=== PATIENT | female | born 1950 | race Caucasian/White ===

== ENCOUNTER 2018-09-03 20:33 | Inpatient (IN) | payer OTHER ==
[~2018-09-03] VITALS: Ht 167.6 cm; Wt 57.6 kg
[2018-09-03] MEDS: NACL 0.9% 1,000 ML IV SCH (08:05)
[2018-09-03 20:35] VITALS: BP 150/69
--- NOTE | 2018-09-03 20:37 | NUR ---
PT BREEZY BLS. TAKEN TO BED 2
--- NOTE | 2018-09-03 20:39 | NUR ---
Dr. Martins evaluating patient at bedside.
[2018-09-03] MEDS ORDERED: INSULIN REGULAR, HUMAN 100 UNIT/ML VIAL SUBQ ONE (20:40)
[2018-09-03] MEDS ORDERED: NACL 0.9% 1,000 ML IV ONE ×2 (20:40→23:30)
--- NOTE | 2018-09-03 20:45 | NUR ---
[facility]. PT IS AWAKE AND ALERT, FOLLOWS COMMANDS. PT HAS HX OF DM. SKIN IS WARM DRY AND INTACT.
[2018-09-03] MEDS ORDERED: INSU-1163 SQ (21:00)
[2018-09-03] MEDS ORDERED: FLEPED RC (21:00)
[2018-09-03] MEDS ORDERED: HYDR100T79 PO (21:00)
[2018-09-03] MEDS ORDERED: CLON0.1T42 PO (21:00)
[2018-09-03] MEDS ORDERED: BISA5ECT43 PO (21:00)
[2018-09-03] MEDS ORDERED: AMLO5TAB PO (21:00)
[2018-09-03] MEDS ORDERED: INSU100S22 SUBQ (21:00)
[2018-09-03] MEDS ORDERED: VITA1TAB44 PO (21:00)
[2018-09-03] MEDS ORDERED: LEVO0.124 PO (21:00)
[2018-09-03] MEDS ORDERED: ACET-9882 PO (21:00)
[2018-09-03] MEDS ORDERED: FAMO-90 PO (21:00)
[2018-09-03 21:11] LABS: BASOPHILS # (AUTO) 0.1 K/uL (0.00-0.22); BASOPHILS % (AUTO) 0.9 % (0.0-2.0); EOSINOPHILS # (AUTO) 0.2 K/uL (0-0.4); EOSINOPHILS % (AUTO) 2.5 % (0.0-4.0); HEMATOCRIT 31.8 % (36-48); HEMOGLOBIN 10.4 g/dL (12.0-16.0); LYMPHOCYTES # (AUTO) 1.8 K/uL (2.5-16.5); LYMPHOCYTES % (AUTO) 21.6 % (20.5-51.1); MEAN CORPUSCULAR HEMOGLOBIN 31 pg (27-31); MEAN CORPUSCULAR HGB CONC 33 g/dL (33-37); MEAN CORPUSCULAR VOLUME 94.9 fL (80-94); MONOCYTES # (AUTO) 0.6 K/uL (0.8-1.0); MONOCYTES % (AUTO) 7.4 % (1.7-9.3); NEUTROPHILS # (AUTO) 5.6 K/uL (1.8-7.7); NEUTROPHILS % (AUTO) 67.6 % (42.2-75.2); PLATELET COUNT (AUTO) 331 K/uL (140-450); RED BLOOD CELL COUNT(AUTO) 3.35 MIL/uL (4.20-5.40); RED CELL DISTRIBUTION WIDTH 16.4 % (11.6-13.7); WHITE BLOOD COUNT (AUTO) 8.3 K/uL (4.8-10.8)
--- NOTE | 2018-09-03 21:15 | NUR ---
# 14 FR Meyers catheter utilizing sterile technique. Immediate return of 30 ml YELLOW CLOUDY urine noted. Urine sample collected and sent to lab. Pt tolerated procedure WELL. MEYERS REMOVED , PT POSITIONED TO COMFORT.
[2018-09-03 21:47] LABS: ANION GAP 16.3 (8-16); CARBON DIOXIDE 21.8 mmol/L (21-32); POTASSIUM 4.1 mmol/L (3.5-5.1)
[2018-09-03 21:49] LABS: CREATININE 4.1 mg/dL (0.6-1.3)
[2018-09-03 21:50] LABS: ALBUMIN 2.8 g/dL (3.4-5.0); TOTAL BILIRUBIN 0.3 mg/dL (0.0-1.0)
[2018-09-03 22:35] LABS: APPEARANCE,URINE CLOUDY (CLEAR); COLOR,URINE STRAW (YELLOW); UGLUCOSE >=1000 (NEGATIVE)
[2018-09-03 22:36] LABS: BILIRUBIN,URINE NEGATIVE (NEGATIVE); BLOOD, URINE 1+ (NEGATIVE); LEUKOCYTE ESTERASE ,URINE 2+ (NEGATIVE); NITRITE, URINE NEGATIVE (NEGATIVE); RBC,URINE 0-5 /HPF (0-5); WBC,URINE TOO MANY TO COUNT /HPF (0-5)
[2018-09-03] MEDS ORDERED: cefTRIAXone 1,000 MG VIAL ONE (23:23)
--- NOTE | 2018-09-03 23:30 | NUR ---
PT IN BED RESTING, VSS, NO NEW NEEDS AT THIS TIME. IVF INFUSING WELL.
[2018-09-03] MEDS ORDERED: LORazepam 2 MG/ML VIAL IM/IVP PRN (23:45)
[2018-09-03] MEDS ORDERED: HYDROcodone/APAP 5/325 MG 1 TAB TAB PO PRN (23:45)
[2018-09-03] MEDS ORDERED: ACETAMINOPHEN 325 MG TAB PO PRN (23:45)
[2018-09-03] MEDS ORDERED: ONDANSETRON 4 MG/2 ML VIAL IM/IVP PRN (23:45)
[2018-09-03] MEDS ORDERED: MORPHINE SULFATE 2 MG/ML SYR IVP PRN (23:45)
[2018-09-03] MEDS ORDERED: DOCUSATE SODIUM 100 MG GELCAP PO PRN (23:45)
[2018-09-03] MEDS ORDERED: ZOLPIDEM 5 MG TAB PO PRN (23:45)
[2018-09-03] MEDS ORDERED: DEXTROSE 50% 50 ML SYR IVP PRN (23:50)
[2018-09-04 00:05] LABS: PROTHROMBIN TIME 9.9 secs (10.8-13.4)
[2018-09-04] MEDS ORDERED: MEDICATION REC. PHARMACY CONS. 1 EA MISC MC PRN (00:15)
[2018-09-04] MEDS ORDERED: MELATONIN 3 MG TAB PO PRN (00:15)
[2018-09-04 00:20] LABS: MAGNESIUM 2.4 mg/dL (1.8-2.4); PHOSPHORUS 4.5 mg/dL (2.5-4.9); THYROID STIMULATING HORMONE 2.91 uIU/mL (0.34-3.74)
[2018-09-04] MEDS ORDERED: cloNIDine 0.1 MG TAB PO PRN (00:25)
[2018-09-04] MEDS ORDERED: SODIUM PHOSPHATE PEDIATRIC 67.5 ML ENEM RC PRN (00:25)
[2018-09-04] MEDS ORDERED: MAGNESIUM HYDROXIDE 2400 MG/30 ML UDC PO PRN (00:25)
--- NOTE | 2018-09-04 00:40 | NUR ---
RECEIVED PATIENT FROM ER VIA GURNEY, 2ND OF 2 L BOLUSES RUNNING TO THE RIGHT AC 22 G. PATIENT IS AAOX2. SHE SHOWS SIGNS OF CONFUSION WHEN MAKING CONVERSATION, BUT CAN ANSWER IDENTIFIERS CLEARLY. VITALS ARE STABLE, PATIENT IS AFEBRILE. HEALED WOUND ON SACRUM AND BL BUTTOCKS FOLD, CURRENT SACRAL AND RIGHT BUTTOCKS OPEN WOUND PRESENT.
[2018-09-04] MEDS ORDERED: METO25TA PO (00:45)
[2018-09-04] MEDS ORDERED: MAGN400S60 PO (00:45)
[2018-09-04] MEDS ORDERED: BISA5ECT43 RC (00:45)
[2018-09-04] MEDS ORDERED: MULT-1469 PO (00:45)
[2018-09-04] MEDS ORDERED: FAMO-90 PO (00:45)
[2018-09-04] MEDS ORDERED: PAX20 PO (00:45)
--- NOTE | 2018-09-04 00:52 | NUR ---
Patient will be admitted to care of DR LIANG. Admited to MED-SURG. Will go to room 128-B. Belongings list completed. Report to SHRUTHI.
[2018-09-04] MEDS ORDERED: HYDR-1102 PO (00:54)
--- NOTE | 2018-09-04 02:00 | NUR ---
MEYERS CATHETER ORDERED DUE TO CONSTANT TRICKLE OF URINE AND OPEN ACTIVE WOUNDS. INSERTED MEYERS WITH ONE ATTEMPT. PATIENT TOLERATED PROCEDURE WELL. SMALL VULVAR SKIN TEAR NOTED PRIOR TO INSERTION. WILL CONTINUE TO MONITOR. URINE IS CLOUDY AND YELLOW.
[2018-09-04 04:00] VITALS: BP 145/78
--- NOTE | 2018-09-04 05:45 | NUR ---
RADIOLOGY NEEDED ASSISTANCE TO TRANSPORT PATIENT VIA BED TO HEAD CT AND CXR. ASSISTED PRESTO LOG OPERATOR WITH TRANSFER TO AND FROM RADIOLOGY. RETURNED PATIENT TO ROOM AND PLACED ON WOUND BED. REPOSITIONED FOR COMFORT.
[2018-09-04 06:55] LABS: BASOPHILS # (AUTO) 0.1 K/uL (0.00-0.22); BASOPHILS % (AUTO) 1.1 % (0.0-2.0); EOSINOPHILS # (AUTO) 0.3 K/uL (0-0.4); EOSINOPHILS % (AUTO) 3.4 % (0.0-4.0); HEMATOCRIT 30.5 % (36-48); HEMOGLOBIN 10.1 g/dL (12.0-16.0); LYMPHOCYTES # (AUTO) 2.4 K/uL (2.5-16.5); LYMPHOCYTES % (AUTO) 27.6 % (20.5-51.1); MEAN CORPUSCULAR HEMOGLOBIN 32 pg (27-31); MEAN CORPUSCULAR HGB CONC 33 g/dL (33-37); MEAN CORPUSCULAR VOLUME 96.8 fL (80-94); MONOCYTES # (AUTO) 0.7 K/uL (0.8-1.0); MONOCYTES % (AUTO) 7.8 % (1.7-9.3); NEUTROPHILS # (AUTO) 5.2 K/uL (1.8-7.7); NEUTROPHILS % (AUTO) 60.1 % (42.2-75.2); PLATELET COUNT (AUTO) 314 K/uL (140-450); RED BLOOD CELL COUNT(AUTO) 3.15 MIL/uL (4.20-5.40); RED CELL DISTRIBUTION WIDTH 16.3 % (11.6-13.7); WHITE BLOOD COUNT (AUTO) 8.7 K/uL (4.8-10.8)
--- NOTE | 2018-09-04 07:45 | NUR ---
GAVE BEDSIDE REPORT TO DAY SHIFT RN. PATIENT STABLE. NO SIGNS OF DISTRESS ON RA. ENDORSING FOR CONTINUITY OF CARE.
--- NOTE | 2018-09-04 07:46 | NUR ---
RECEIVED REPORT FROM THE MANAGER SUPPLIER NURSE. PT IS SLEEPING. I WILL COME BACK TO REASSESS PT.
[2018-09-04 08:00] VITALS: BP 137/68
--- NOTE | 2018-09-04 08:00 | NUR ---
WOKE UP PT FOR V/S. V/S WITHIN NORMAL RANGE. PT IS AWAKE AND ANSWERS SIMPLE QUESTIONS. PT IS SLUGGISH AND SLEEPY. PT HAS AN IV ACCESS ON R AC. NO FLUIDS RUNNING AT THIS TIME. WILL HANG A FRESH BAG AND RESTART IVF. PT ALSO HAS A MEYERS CATH. BAG IS FULL OF YELLOW URINE. PT ALSO HAS A HEART SHAPE MEPILEX ON HER SACRAL. SOME SKIN TEAR IN HER LUIS AREA AND BUTTOCKS. PT IS ON A WOUND CARE BED. NEED PUMP. DR SEGURA STOPPED BY ON HIS ROUNDS. TODAY TO HAVE US OF ABD, P/T EVAL, AND NEPHRO CONSULT. WILL CONTINUE TO MONITOR PT.
[2018-09-04] MEDS: LEVOTHYROXINE 0.1 MG, LEVOTHYROXINE 0.025 MG PO SCH ×2 (08:05)
[2018-09-04] MEDS: hydrALAZINE 10 MG TAB PO SCH ×3 (08:05→20:45)
[2018-09-04] MEDS: BLOOD GLUCOSE MONITORING 1 DEV DEV FS SCH ×4 (08:05→20:31)
[2018-09-04] MEDS: INSULIN LISPRO SLIDING SCALE 100 UNITS/ML VIAL SUBQ PRN ×4 (08:08→20:36)
[2018-09-04] MEDS ORDERED: SODIUM PHOSPHATE 118 ML ENEM RC PRN (08:10)
[2018-09-04] MEDS: LACTOBACILLUS RHAMNOSUS GG 1 EACH CAP PO SCH (08:53)
[2018-09-04] MEDS: VIT-B COMP/VIT-C/FOLIC ACID 1 TAB PO SCH (08:53)
[2018-09-04] MEDS: METOPROLOL 25 MG TAB PO SCH ×2 (08:53→20:58)
[2018-09-04] MEDS: PARoxetine 20 MG TAB PO SCH (08:54)
[2018-09-04] MEDS: amLODIPine 5 MG TAB PO SCH (08:54)
[2018-09-04] MEDS: FAMOTIDINE 20 MG TAB PO SCH ×2 (08:54→20:45)
[2018-09-04] MEDS ORDERED: NON-FORMULARY ITEM (Levothyroxine Sodium* (Synthroid*) 0.125 MG) PO SCH (09:00)
[2018-09-04] MEDS ORDERED: BISACODYL 10 MG SUPP RC PRN (09:00)
[2018-09-04] MEDS ORDERED: VIT-B COMP/VIT-C/FOLIC ACID 1 TAB PO SCH (09:00)
--- NOTE | 2018-09-04 09:00 | NUR ---
ADMINISTERED MORNING MEDS. PT TOLERATED WELL. HELD BREAKFAST D/T ABD US. PER US TECH REQUEST.
[2018-09-04 09:03] LABS: ANION GAP 16.2 (8-16); CARBON DIOXIDE 20.8 mmol/L (21-32); CREATININE 3.6 mg/dL (0.6-1.3)
[2018-09-04] MEDS: NACL 0.9% 1,000 ML IV SCH (09:09)
--- NOTE | 2018-09-04 09:45 | NUR ---
ABD US DONE.
[2018-09-04 10:19] LABS: MAGNESIUM 1.9 mg/dL (1.8-2.4); PHOSPHORUS 4.3 mg/dL (2.5-4.9)
--- NOTE | 2018-09-04 11:05 | NUR ---
DR. MACHADO, NEPHRO CAME TO CONSULT ON PT.
[2018-09-04 11:43] LABS: CHOL/HDL RATIO 4.6 (1-4.5)
--- NOTE | 2018-09-04 14:16 | NUR ---
09/04/18 RD INITIAL ASSESSMENT COMPLETED PLEASE REFER TO NUTRITION ASSESSMENT UNDER CARE ACTIVITY FOR ESTIMATED NUTRITIONAL NEEDS. 1. CONTINUE [facility] [place] DIET TOLERATE 2. RECOMMEND VITAMIN C 1000 MG BID 3. DIABETES EDUCATION WAS PROVIDED 4. RD TO FOLLOW-UP 2-3 DAYS, HIGH RISK TIANNA LAMA RD
--- NOTE | 2018-09-04 14:51 | NUR ---
TECH HERE FOR ECHO.
--- NOTE | 2018-09-04 15:05 | NUR ---
S.T. BEDSIDE SWALLOW EVAL COMPLETED Pt presents w/ mild oropharyngeal dysphagia c/b prolonged mastication of solids and delayed pharyngeal swallow response. No overt s/s aspiration observed, however, across all textures. Recommend: 1) Downgrade diet to mechanical soft chopped. Thin liquids okay. 2) P.O. meds as tolerated. No further swallow tx indicated at this time. DC to nsg care. Endorsed to nsg. Time 2935-1456
[2018-09-04 16:00] VITALS: BP 114/47
--- NOTE | 2018-09-04 19:25 | NUR ---
ENDORSED PT TO THE EXERCISE TEACHER NURSE. PT IS IN STABLE CONDITION.
--- NOTE | 2018-09-04 19:26 | NUR ---
RECEIVED PT FROM JAMEE REYNOLDS AT BEDSIDE. PT AWAKE AND ALERT X4. ABLE TO MAKE NEEDS KNOWN. FOLLOWS COMMANDS. R AC 22G RUNNING NS 70. CLEAN DRY INTACT. SACRAL WOUND. SKIN TEAR IN PERINEAL. REPOSITION Q2H. BED IN LOW POSITION. CALL LIGHT WITHIN REACH.
[2018-09-04 20:00] VITALS: BP 129/51
[2018-09-04] MEDS: INSULIN LANTUS 100 UNITS/ML 10 ML VIAL SUBQ SCH (20:35)
[2018-09-04] MEDS: ASCORBIC ACID 500 MG TAB PO SCH (20:45)
--- NOTE | 2018-09-04 21:00 | NUR ---
BLOOD SUGAR TEST 227. COVERAGE 4 UNITS. PT TOLERATED WELL. NO COMPLAINTS AT THIS TIME. BED IN LOW POSITION. CALL LIGHT WITHIN REACH. WILL CONTINUE TO MONITOR.
--- NOTE | 2018-09-04 23:00 | NUR ---
PT SLEEPING IN BED WITH NO SIGNS OF RESP DISTRESS OR DISCOMFORT. WILL CONTINUE TO MONITOR.
[2018-09-05] VITALS: BP 130/64
--- NOTE | 2018-09-05 01:00 | NUR ---
PT IS SLEEPING AFTER ASSESSING WOUND. PT REPOSITIONED. NO SIGNS OF DISTRESS. PT COOPERATIVE.
--- NOTE | 2018-09-05 04:00 | NUR ---
SPONGE BATH GIVEN. LINEN CHANGE. TOLERATED WELL. NO DISTRESS NOTED.
[2018-09-05] MEDS: NACL 0.9% 1,000 ML IV SCH ×2 (04:28→10:49)
[2018-09-05] MEDS: LEVOTHYROXINE 0.1 MG, LEVOTHYROXINE 0.025 MG PO SCH ×2 (05:33)
[2018-09-05] MEDS: hydrALAZINE 10 MG TAB PO SCH ×3 (05:33→20:18)
[2018-09-05] MEDS: BLOOD GLUCOSE MONITORING 1 DEV DEV FS SCH ×4 (05:38→21:22)
--- NOTE | 2018-09-05 05:46 | NUR ---
ADMINISTERED MEDS. EDUCATED ON SIDE EFFECTS. VERBALIZED UNDERSTANDING. TOLERATED WELL. WILL CONTINUE TO MONITOR.
[2018-09-05] MEDS: INSULIN LISPRO SLIDING SCALE 100 UNITS/ML VIAL SUBQ PRN ×3 (05:53→20:37)
--- NOTE | 2018-09-05 06:47 | NUR ---
WILL ENDORSE PT TO DAY SHIFT RN. PT IN STABLE CONDITION.
[2018-09-05 07:35] LABS: BASOPHILS # (AUTO) 0.1 K/uL (0.00-0.22); BASOPHILS % (AUTO) 1.2 % (0.0-2.0); EOSINOPHILS # (AUTO) 0.2 K/uL (0-0.4); EOSINOPHILS % (AUTO) 3.2 % (0.0-4.0); HEMATOCRIT 26.3 % (36-48); HEMOGLOBIN 8.9 g/dL (12.0-16.0); LYMPHOCYTES # (AUTO) 2.1 K/uL (2.5-16.5); LYMPHOCYTES % (AUTO) 27.3 % (20.5-51.1); MEAN CORPUSCULAR HEMOGLOBIN 32 pg (27-31); MEAN CORPUSCULAR HGB CONC 34 g/dL (33-37); MEAN CORPUSCULAR VOLUME 94.5 fL (80-94); MONOCYTES # (AUTO) 0.4 K/uL (0.8-1.0); MONOCYTES % (AUTO) 5.6 % (1.7-9.3); NEUTROPHILS # (AUTO) 4.8 K/uL (1.8-7.7); NEUTROPHILS % (AUTO) 62.7 % (42.2-75.2); PLATELET COUNT (AUTO) 285 K/uL (140-450); RED BLOOD CELL COUNT(AUTO) 2.79 MIL/uL (4.20-5.40); RED CELL DISTRIBUTION WIDTH 16.3 % (11.6-13.7); WHITE BLOOD COUNT (AUTO) 7.7 K/uL (4.8-10.8)
[2018-09-05 08:00] VITALS: BP 129/65
[2018-09-05 08:25] LABS: ANION GAP 14.9 (8-16); CARBON DIOXIDE 21.4 mmol/L (21-32); CREATININE 3.4 mg/dL (0.6-1.3); POTASSIUM 4.3 mmol/L (3.5-5.1)
[2018-09-05 08:28] LABS: MAGNESIUM 2.1 mg/dL (1.8-2.4); PHOSPHORUS 4.2 mg/dL (2.5-4.9)
[2018-09-05 08:29] LABS: HEPATITIS A ANTIBODY IGM Negative (Negative); HEPATITIS B CORE AB TOTAL Negative (Negative); HEPATITIS B SURFACE ANTIBODY Non Reactive (.); HEPATITIS B SURFACE ANTIGEN Negative (Negative)
[2018-09-05 08:29] LABS: T4 (THYROXINE) 8.5 ug/dL (4.5-12.0)
--- NOTE | 2018-09-05 08:29 | NUR ---
CRITICAL RESULTS BUN 69 CREAT 3.4 TRENDING DOWN FROM BUN 76 AND CREAT 3.6
--- NOTE | 2018-09-05 09:15 | NUR ---
ASSISTED JAIME WITH WOUND CARE AND REPOSITIONING. PT TOLERATED WELL. WILL CONTINUE TO MONITOR. BED IN LOW POSITION. CALL LIGHT AT BEDSIDE.
--- NOTE | 2018-09-05 10:26 | NUR ---
WOUND CARE EVALUATION NOTE: REASON FOR EVALUATION: LOW FRED SCALE SACRALCOCCYX AND LEFT BUTTOCK WOUNDS SKIN ASSESSMENT DONE WITH THIS 67 Y/O FEMALE PT ADMITTED FROM [facility] TO [facility] WITH INITIAL DX HYPERGLYCEMIA. PAST MEDICAL HX INCLUDES HTN, DM, HDL AND MULTIPLE PRESSURE ULCER WOUNDS. ALL ABOVE INFORMATION OBTAINED FROM ADMISSION H&P. PT IS AWAKE. SKIN IS WARM AND DRY, BLE HAIR GROWTH, NO EDEMA. DORSAL PEDAL PULSES PRESENT AND NORMAL. CAPILLARY REFILLED < 2 SEC. INCONTINENT OF BOWEL X1 DURING ASSESSMENT. F/C PATENT WITH SMALL AMOUNT YELLOW COLOR URINE OUT PUT OBSERVED. PLAN OF CARE DISCUSSED WITH PRIMARY RN. AND PT. NEED REINFORCE TEACHING ON PT. INTEGUMENTARY: -INCONTINENT ASSOCIATE DERMATITIS (IAD) TO: B/L GROINS, INNER BUTTOCKS EXTENDED TO LUIS ANAL, SKIN REDNESS -PRESSURE ULCER INJURY STAGE 3, SACROCOCCYX 2.5X1.5X0.3XCM,WOUND BED 100 % GRANULATING TISSUE, LUIS-WOUND SKIN MARCERATED, SURROUNDING REDNESS INDICATED FURTHER DAMAGE - PRESSURE ULCER INJURY STAGE 2, RIGHT BUTTOCK 1.5X1X0.2CM WOUND BED IS RED 100% GRANULATING TISSUE, MOIST NO ODOR, LUIS WOUND SKIN INTACT. SURROUNDING REDNESS INDICATED FOR FURTHER DAMAGE. RECOMMENDATIONS: -APPLY Z-GUARD B/L GROINS, INNER BUTTOCKS EXTENDED TO LUIS ANAL, SKIN REDNESS BID AND PRN IF SOILING - CLEANSE RIGHT BUTTOCK AND SACRALCOCCYX WITH WOUND CLEANSING SOLUTION AND APPLY THERAHONEY GEL COVER WITH OPTIFOAM DRESSING QD AND PRN IF SOILING -APPLY HEEL PROTECTORS TO BOTH HEELS AT ALL TIMES -OFFLOAD BILATERAL HEELS BY PLACING PILLOWS UNDER CALVES UNLESS OTHERWISE CONTRAINDICATED -PRESSURE REDISTRIBUTION SURFACE THERAPY -TURN AND REPOSITION Q2H, OFFLOAD SACRALCOCCYX AND BUTTOCKS BY TURNING RIGHT AND LEFT -CONTINUE TO FOLLOW RD RECOMMENDATIONS ALL ABOVE RECOMMENDATIONS DISCUSSED WITH PRIMARY RN. WILL FOLLOW UP PT Q7-10 DAYS. PLEASE CONTACT WOUND CARE NURSE FOR ANY QUESTION AND CHANGE OF WOUND CONDITION. Addendum: 09/05/18 at 1038 by Earl Santos (Grace) RN CLARIFICATION: SACRALCOCCYX WOUND NO TUNNELING, UNDERMINING TO 11 O'CLOCK 1CM DEPTH
[2018-09-05] MEDS: LACTOBACILLUS RHAMNOSUS GG 1 EACH CAP PO SCH (10:30)
[2018-09-05] MEDS: VIT-B COMP/VIT-C/FOLIC ACID 1 TAB PO SCH (10:30)
[2018-09-05] MEDS: FAMOTIDINE 20 MG TAB PO SCH ×2 (10:30→20:18)
[2018-09-05] MEDS: ASCORBIC ACID 500 MG TAB PO SCH ×2 (10:30→20:19)
[2018-09-05] MEDS: PARoxetine 20 MG TAB PO SCH (10:30)
[2018-09-05] MEDS: amLODIPine 5 MG TAB PO SCH (10:32)
[2018-09-05] MEDS: METOPROLOL 25 MG TAB PO SCH ×2 (10:32→20:19)
--- NOTE | 2018-09-05 11:10 | NUR ---
PT LYING IN BED SLEEPING AT THIS TIME. RESPIRATIONS EVEN AND UNLABORED. BED IN LOW POSITION. BED ALARM ON. CALL LIGHT AT BEDSIDE. WILL CONTINUE TO MONITOR.
[2018-09-05 12:11] LABS: FOLIC ACID > 20.00 ng/mL (>3.0)
--- NOTE | 2018-09-05 13:34 | NUR ---
ASSISTED IN REPOSITIONING AND LUIS CLEANING. PT IN STABLE CONDITION. PT TOLERATED WELL. BED IN LOW POSITION. BED ALARM ON. CALL LIGHT AT BEDSIDE. WILL CONTINUE TO MONITOR.
--- NOTE | 2018-09-05 15:33 | NUR ---
PT LYING IN BED WATCHING TV IN STABLE CONDITION. BED IN LOW POSITION. BED ALARM ON. CALL LIGHT AT BEDSIDE. WILL CONTINUE TO MONITOR.
[2018-09-05 16:00] VITALS: BP 134/77
--- NOTE | 2018-09-05 17:14 | NUR ---
REPOSITIONED AND CHANGED PT AFTER BOWEL MOVEMENT SMALL IN SIZE, SOFT, AND FORMED. PT TOLERATED WELL.
[2018-09-05] MEDS: THERAHONEY GEL 42.5 GM TP SCH (17:18)
[2018-09-05] MEDS: Z-GUARD PASTE TP SCH (17:19)
--- NOTE | 2018-09-05 18:43 | NUR ---
CRITICAL POSITIVE MRSA NARES. PT PLACED ON CONTACT PRECAUTIONS AT THIS TIME.
--- NOTE | 2018-09-05 19:24 | NUR ---
GAVE REPORT TO DEBT RECOVERY OFFICER NURSE KISSCATALINA FOR CONTINUITY OF CARE. PT IN STABLE CONDITION.
--- NOTE | 2018-09-05 19:25 | NUR ---
RECEIVED BEDSIDE REPORT FROM DAY SHIFT NURSE. PATIENT AWAKE, ALERT, AND COOPERATIVE. RESPIRATION EVEN UNLABORED ON ROOM AIR. NO DISTRESS NOTED. IV PATENT AND INTACT. SKIN IS WARM AND DRY. SACRAL WOUND AND SKIN TEAR IN PERINEAL AREA NOTED. MEYERS CATHETER DRAINING YELLOW URINE NOTED. ALL SAFETY MEASURES IN PLACE. BED IS AT LOW POSITION. CALL LIGHT WITHIN REACH AND VERBALIZES ITS USE. WILL CONTINUE TO MONITOR.
[2018-09-05] MEDS ORDERED: BACITRACIN OINT 500 UNITS/GM PKT TP SCH (20:00)
[2018-09-05] MEDS ORDERED: CHLORHEXADINE GLUC 2% CLOTH TP SCH (20:00)
--- NOTE | 2018-09-05 20:00 | NUR ---
INITIAL ASSESSMENT DONE. VITALS WERE TAKEN. PATIENT CONDITION STABLE. WILL CONTINUE TO MONITOR
[2018-09-05] MEDS: INSULIN LANTUS 100 UNITS/ML 10 ML VIAL SUBQ SCH (20:38)
--- NOTE | 2018-09-05 21:00 | NUR ---
ALL SCHEDULED MEDS WERE GIVEN AND TOLERATED THEM WELL. NO ASE NOTED. WILL CONTINUE TO MONITOR
--- NOTE | 2018-09-05 22:00 | NUR ---
PATIENT IN BED WATCHING TV RESPIRATION EVEN UNLABORED ON ROOM AIR. NO DISTRESS NOTED. WILL CONTINUE TO MONITOR.
--- NOTE | 2018-09-05 23:00 | NUR ---
PROVIDED PATIENT GOOD PERICARE AND CATHETER CARE BEFORE BEDTIME.
[2018-09-05] MEDS ORDERED: cefTRIAXone 1,000 MG VIAL ONE (23:26)
[2018-09-06] VITALS: BP 148/71
--- NOTE | 2018-09-06 | NUR ---
VITALS WERE TAKEN. PATIENT CONDITION STABLE. NO DISTRESS NOTED. WILL CONTINUE TO MONITOR
--- NOTE | 2018-09-06 02:00 | NUR ---
PATIENT SLEEPING RESPIRATION EVEN UNLABORED ON ROOM AIR. NO DISTRESS NOTED. WILL CONTINUE TO MONITOR
[2018-09-06] MEDS: Z-GUARD PASTE TP SCH ×2 (02:46→11:54)
[2018-09-06 03:50] LABS: FERRITIN 279 ng/mL (15-150); TRANSFERRIN 171 mg/dL (200-370)
--- NOTE | 2018-09-06 04:00 | NUR ---
GAVE PATIENT GOOD PERICARE AND CATHETER CARE. NO DISTRESS NOTED. WILL CONTINUE TO MONITOR
[2018-09-06] MEDS: hydrALAZINE 10 MG TAB PO SCH ×3 (05:34→20:23)
[2018-09-06] MEDS: LEVOTHYROXINE 0.1 MG, LEVOTHYROXINE 0.025 MG PO SCH ×2 (05:35)
--- NOTE | 2018-09-06 05:40 | NUR ---
CHECKED PATIENT BLOOD GLUCOSE. BLOOD GLUCOSE 25mg/dL. ADMINISTERED D50 PER ORDER AND GAVE PATIENT ORANGE JUICE WITH SUGAR. PATIENT IS RESPONSIVE, AWAKE, ALERT, AND COOPERATIVE. WILL CONTINUE TO MONITOR.
[2018-09-06] MEDS: BLOOD GLUCOSE MONITORING 1 DEV DEV FS SCH ×4 (06:13→20:37)
--- NOTE | 2018-09-06 06:13 | NUR ---
RECHECKED PATIENT BLOOD GLUCOSE. ITS NOW 127mg/dL.
[2018-09-06] MEDS: NACL 0.9% 1,000 ML IV SCH (06:46)
--- NOTE | 2018-09-06 07:20 | NUR ---
ENDORSED PATIENT TO DAY SHIFT NURSE. PATIENT CONDITION STABLE.
--- NOTE | 2018-09-06 07:21 | NUR ---
RECEIVED ENDORSEMENT FROM GENERAL MAINTENANCE TECHNICIAN NURSE. RESPIRATIONS ARE EVEN AND UNLABORED ON ROOM AIR. FLACC 0. PT RESPONSE TO NAME ONLY. RIGHT AC 22 G IV NOTED, INTACT, PATENT, AND INFUSING IVF. F/C DRAINING CLEAR YELLOW URINE. PLAN OF CARE WAS REVIEWED WITH PT. PT UNABLE TO VERBALIZE UNDERSTANDING. SAFETY MEASURES IN PLACE, CALL LIGHT WITHIN REACH. WILL CONTINUE TO MONITOR.
[2018-09-06 07:53] LABS: BASOPHILS # (AUTO) 0.1 K/uL (0.00-0.22); EOSINOPHILS # (AUTO) 0.2 K/uL (0-0.4); HEMATOCRIT 28.8 % (36-48); HEMOGLOBIN 9.7 g/dL (12.0-16.0); LYMPHOCYTES # (AUTO) 1.5 K/uL (2.5-16.5); MEAN CORPUSCULAR HEMOGLOBIN 32 pg (27-31); MEAN CORPUSCULAR HGB CONC 34 g/dL (33-37); MEAN CORPUSCULAR VOLUME 94.9 fL (80-94); MONOCYTES # (AUTO) 0.4 K/uL (0.8-1.0); NEUTROPHILS # (AUTO) 5.1 K/uL (1.8-7.7); PLATELET COUNT (AUTO) 293 K/uL (140-450); RED BLOOD CELL COUNT(AUTO) 3.03 MIL/uL (4.20-5.40); RED CELL DISTRIBUTION WIDTH 15.9 % (11.6-13.7); WHITE BLOOD COUNT (AUTO) 7.3 K/uL (4.8-10.8)
[2018-09-06 08:00] VITALS: BP 152/72
[2018-09-06 08:04] LABS: ANION GAP 16.6 (8-16); CARBON DIOXIDE 20.8 mmol/L (21-32); CREATININE 2.8 mg/dL (0.6-1.3); POTASSIUM 4.4 mmol/L (3.5-5.1)
[2018-09-06 08:13] LABS: MAGNESIUM 1.8 mg/dL (1.8-2.4); PHOSPHORUS 3.8 mg/dL (2.5-4.9)
--- NOTE | 2018-09-06 09:30 | NUR ---
ADMINISTERED SCHEDULED MEDICATIONS. PT ABLE TO SWALLOW THEM WITH APPLE SAUCE. FLACC 0. WILL CONTINUE TO MONITOR.
[2018-09-06] MEDS: METOPROLOL 25 MG TAB PO SCH ×2 (09:41→20:23)
[2018-09-06] MEDS: amLODIPine 5 MG TAB PO SCH (09:42)
[2018-09-06] MEDS: PARoxetine 20 MG TAB PO SCH (09:42)
[2018-09-06] MEDS: VIT-B COMP/VIT-C/FOLIC ACID 1 TAB PO SCH (09:42)
[2018-09-06] MEDS: FAMOTIDINE 20 MG TAB PO SCH ×2 (09:43→20:24)
[2018-09-06] MEDS: LACTOBACILLUS RHAMNOSUS GG 1 EACH CAP PO SCH (09:43)
[2018-09-06] MEDS: ASCORBIC ACID 500 MG TAB PO SCH ×2 (09:43→20:22)
[2018-09-06] MEDS: CHLORHEXADINE GLUC 2% CLOTH TP SCH (09:44)
[2018-09-06] MEDS: BACITRACIN OINT 500 UNITS/GM PKT TP SCH (09:44)
--- NOTE | 2018-09-06 10:24 | NUR ---
PATIENT WAS REPOSITIONED. PERINEAL CARE AND CATHETER CARE WERE GIVEN. WOUND DRESSING WAS CHANGED. PATIENT TOLERATED WELL. Addendum: 09/06/18 at 1033 by Cecilia Varghese RN HEEL RAISERS WERE PLACED ON BILATERAL HEELS PER ORDER
[2018-09-06 11:30] VITALS: BP 159/75
[2018-09-06] MEDS: THERAHONEY GEL 42.5 GM TP SCH (11:54)
--- NOTE | 2018-09-06 11:54 | NUR ---
PT REFUSED CT. STATED THAT SHE DID NOT WANT TO DO IT RIGHT NOW.
--- NOTE | 2018-09-06 12:30 | NUR ---
PATIENT REFUSED IVF, STATED SHE DOES NOT WANT IT RIGHT NOW. PATIENT WAS EXPLAINED WITH RISKS OF DEHYDRATION. PATIENT VERBALIZED UNDERSTANDING AND INSISTED ON REFUSING.
--- NOTE | 2018-09-06 14:00 | NUR ---
PATIENT WAS SLEEPING COMFORTABLY. RESPIRATION EVEN, UNLABOR ON ROOM AIR. NO DISTRESS NOTED AT THIS TIME
[2018-09-06 16:00] VITALS: BP 131/77
--- NOTE | 2018-09-06 16:30 | NUR ---
PATIENT SLEEPING, EASILY AROUSABLE. FLACC 0. WILL CONTINUE TO MONITOR.
[2018-09-06] MEDS: INSULIN LISPRO SLIDING SCALE 100 UNITS/ML VIAL SUBQ PRN ×2 (17:40→20:44)
--- NOTE | 2018-09-06 18:20 | NUR ---
PATIENT WAS AWAKE, EATING DINNER COMFORTABLY. RESPIRATION EVEN, UNLABOR ON ROOM AIR. PATIENT CONTINUED TO REFUSED CT SCAN OF ABDOMEN. MD WAS MADE AWARE. NO DISTRESS NOTED AT THIS TIME. IV PATENT AND INTACT.
--- NOTE | 2018-09-06 19:35 | NUR ---
ENDORSEMENT GIVEN TO BROADCAST SYSTEMS ENGINEER NURSE. PATIENT IS STABLE AT THIS TIME
--- NOTE | 2018-09-06 19:36 | NUR ---
REPORT RECEIVED FROM AM NURSE AT BEDSIDE. PT IN STABLE CONDITION. INTRODUCED SELF TO PT. BOARD UPDATED. AAOX1. PT IS VERY CONFUSED. NO COMPLAINTS OF PAIN. NO SOB. AFEBRILE. PT HAS MEYERS IN PLACE. IV SITE R AC 22G PATENT AND INTACT SL AT THIS MOMENT DUE TO PATIENT REFUSING FLUIDS. SKIN WARM, DRY, AND NOT INTACT DUE TO SACRAL WOUND. BED LOCKED IN LOW POSITION. CALL RAM WITHIN REACH. SAFETY PRECAUTIONS IN PLACE. ALL NEEDS MET AT THIS TIME.
--- NOTE | 2018-09-06 20:29 | NUR ---
ADMINISTERED MEDS SCHEDULED. EDUCATED ON SIDE EFFECTS. VERBALIZED UNDERSTANDING. TOLERATED WELL. WILL CONTINUE TO MONITOR.
[2018-09-06] MEDS ORDERED: INSULIN LANTUS 100 UNITS/ML 10 ML VIAL SUBQ SCH (21:00)
--- NOTE | 2018-09-06 22:23 | NUR ---
IVPB 50ML AT 100ML/HR ROCEPHIN. EDUCATED. VERBALIZED UNDERSTANDING. PT FOWLERS POSITION WATCHING TV. NO PAIN AT THIS TIME. REQUESTED COFFEE. WILL CONTINUE TO MONITOR.
[2018-09-07] VITALS: BP 159/77
--- NOTE | 2018-09-07 00:14 | NUR ---
PT SLEEPING IN BED. NO SIGNS OF RESP DISTRESS OR DISCOMFORT. BED IN LOW POSITION. CALL LIGHT WITHIN REACH. EASILY AROUSABLE. ABLE TO MAKE NEEDS KNOWN. NO COMPLAINTS OF PAIN AT THIS TIME. WILL CONTINUE TO MONITOR.
[2018-09-07] MEDS: NACL 0.9% 1,000 ML IV SCH (01:25)
[2018-09-07] MEDS: Z-GUARD PASTE TP SCH ×2 (01:43→13:55)
--- NOTE | 2018-09-07 02:50 | NUR ---
PT REMAINS SLEEPING IN BED. NO SIGNS OF RESP DISTRESS. EASILY AROUSABLE. NO PAIN AT THIS TIME. BED IN LOW POSITION. CALL LIGHT WITHIN REACH. WILL CONTINUE TO MONITOR.
--- NOTE | 2018-09-07 04:25 | NUR ---
PT IN BED SLEEPING EASILY AROUSABLE. NO PAIN AT THIS TIME. NO DISTRESS NOTED. NO COMPLAINTS AT THIS TIME. BED IN LOW POSITION. CALL LIGHT WITHIN REACH.
[2018-09-07] MEDS: LEVOTHYROXINE 0.1 MG, LEVOTHYROXINE 0.025 MG PO SCH ×2 (05:40)
[2018-09-07] MEDS: hydrALAZINE 10 MG TAB PO SCH ×2 (05:40→14:11)
--- NOTE | 2018-09-07 05:51 | NUR ---
ADMINISTERED MEDS SCHEDULED. EDUCATED ON SIDE EFFECTS. VERBALIZED UNDERSTANDING. TOLERATED WELL. REPOSITIONED. BED IN LOW POSITION. CALL LIGHT WITHIN REACH. DENIES PAIN. NO COMPLAINTS AT THIS TIME. WILL CONTINUE TO MONITOR.
[2018-09-07] MEDS: BLOOD GLUCOSE MONITORING 1 DEV DEV FS SCH ×2 (05:53→11:56)
--- NOTE | 2018-09-07 05:59 | NUR ---
BLOOD SUGAR CHECK 94. NO COVERAGE NEEDED.
--- NOTE | 2018-09-07 07:28 | NUR ---
GAVE BEDSIDE REPORT TO DAY SHIFT RN. PT IN STABLE CONDITION.
--- NOTE | 2018-09-07 07:29 | NUR ---
RECEIVED REPORT FROM HOTEL FRONT OFFICE MANAGER NURSE AT BEDSIDE FOR CONTINUITY OF CARE. PATIENT AWAKE AND ALERT, AOX3. RESPIRATIONS ARE EVEN AND UNLABORED ON ROOM AIR. PATIENT DENIES PAIN. RIGHT AC 22 G IV NOTED, INTACT, PATENT, AND AND ASYMPTOMATIC, INFUSING IVF. F/C DRAINING TO GRAVITY WITH CLEAR YELLOW URINE. PLAN OF CARE WAS REVIEWED WITH PATIENT, PATIENT VERBALIZE UNDERSTANDING. UPDATED BOARD. SAFETY MEASURES IN PLACE, CALL LIGHT WITHIN REACH. WILL CONTINUE TO MONITOR.
[2018-09-07 08:00] VITALS: BP 137/65
[2018-09-07 08:59] LABS: BASOPHILS # (AUTO) 0.1 K/uL (0.00-0.22); BASOPHILS % (AUTO) 0.8 % (0.0-2.0); EOSINOPHILS # (AUTO) 0.3 K/uL (0-0.4); EOSINOPHILS % (AUTO) 3.5 % (0.0-4.0); HEMATOCRIT 30.2 % (36-48); LYMPHOCYTES # (AUTO) 1.7 K/uL (2.5-16.5); LYMPHOCYTES % (AUTO) 23.8 % (20.5-51.1); MEAN CORPUSCULAR HEMOGLOBIN 31 pg (27-31); MEAN CORPUSCULAR HGB CONC 33 g/dL (33-37); MEAN CORPUSCULAR VOLUME 94.4 fL (80-94); MONOCYTES # (AUTO) 0.4 K/uL (0.8-1.0); MONOCYTES % (AUTO) 5.7 % (1.7-9.3); NEUTROPHILS # (AUTO) 4.9 K/uL (1.8-7.7); NEUTROPHILS % (AUTO) 66.2 % (42.2-75.2); PLATELET COUNT (AUTO) 318 K/uL (140-450); RED CELL DISTRIBUTION WIDTH 16.7 % (11.6-13.7); WHITE BLOOD COUNT (AUTO) 7.4 K/uL (4.8-10.8)
[2018-09-07 09:06] LABS: ANION GAP 17.2 (8-16); CARBON DIOXIDE 21.4 mmol/L (21-32); CREATININE 2.6 mg/dL (0.6-1.3); POTASSIUM 4.6 mmol/L (3.5-5.1)
[2018-09-07 09:09] LABS: MAGNESIUM 1.9 mg/dL (1.8-2.4); PHOSPHORUS 4.1 mg/dL (2.5-4.9)
[2018-09-07] MEDS ORDERED: ZGUARD TP (09:38)
[2018-09-07] MEDS ORDERED: Therahoney Gel TP (09:38)
[2018-09-07] MEDS ORDERED: LACT10CA PO (09:38)
[2018-09-07] MEDS ORDERED: ROC2I IV (09:40)
[2018-09-07] MEDS: CHLORHEXADINE GLUC 2% CLOTH TP SCH (10:05)
[2018-09-07] MEDS: METOPROLOL 25 MG TAB PO SCH (10:12)
[2018-09-07] MEDS: VIT-B COMP/VIT-C/FOLIC ACID 1 TAB PO SCH (10:12)
--- NOTE | 2018-09-07 10:12 | NUR ---
ORDERED MEDICATIONS GIVEN. PATIENT TOLERATED THEM WELL. NO SIGN OF DISTRESS OR SOB NOTED ON ROOM AIR. RESPIRATIONS EVEN AND UNLABORED. PATIENT RELAXED IN BED WATCHING TV. NO COMPLAINTS OF PAIN AT THIS TIME. SAFETY AND ISOLATION PRECAUTIONS IN PLACE, CALL LIGHT WITHIN REACH, WILL CONTINUE TO MONITOR PATIENT.
[2018-09-07] MEDS: PARoxetine 20 MG TAB PO SCH (10:13)
[2018-09-07] MEDS: FAMOTIDINE 20 MG TAB PO SCH (10:13)
[2018-09-07] MEDS: amLODIPine 5 MG TAB PO SCH (10:14)
[2018-09-07] MEDS: ASCORBIC ACID 500 MG TAB PO SCH (10:14)
[2018-09-07] MEDS: LACTOBACILLUS RHAMNOSUS GG 1 EACH CAP PO SCH (10:14)
[2018-09-07] MEDS: BACITRACIN OINT 500 UNITS/GM PKT TP SCH (10:15)
--- NOTE | 2018-09-07 10:38 | NUR ---
CALLED JUANI RICO [phone] REGARDING DC/TRANSFER, SPOKE WITH DAISY, SHE WILL HAVE THEIR BOOSTER OPERATOR CALL US BACK.
--- NOTE | 2018-09-07 10:51 | NUR ---
09/07/18 RD FOLLOW UP COMPLETED PLEASE REFER TO NUTRITION PROGRESS NOTE UNDER CARE ACTIVITY FOR ESTIMATED NUTRITION NEEDS RD RECOMMENDATIONS: 1. CONTINUE CCHO 60 GM DIET TOLERATED. 2. RD TO FOLLOW-UP 3-5 DAYS, MODERATE RISK. RITA PRIEST MS, RDN
--- NOTE | 2018-09-07 11:23 | NUR ---
SAGE AUTOMOTIVE QUALITY ENGINEER FROM [facility] CALLED, SHE WAS NOTIFIED OF MRSA + NARE ON CONTACT ISOLATION, SHE WILL CALL US BACK WITH ROOM NUMBER IF AVAILABLE.
[2018-09-07] MEDS: INSULIN LISPRO SLIDING SCALE 100 UNITS/ML VIAL SUBQ PRN (12:25)
--- NOTE | 2018-09-07 12:25 | NUR ---
BLOOD SUGAR 165, COVERAGE GIVEN. PATIENT TOLERATED IT WELL. PATIENT NOW GETTING READY TO EAT LUNCH. NO SIGN OF DISTRESS OR SOB NOTED ON ROOM AIR. NO COMPLAINTS OF PAIN AT THIS TIME. SAFETY AND ISOLATION PRECAUTIONS IN PLACE, CALL LIGHT WITHIN REACH, WILL CONTINUE TO MONITOR PATIENT.
--- NOTE | 2018-09-07 13:22 | NUR ---
JUANI CRANDALL [phone], WILL CHECK WITH SAGE GROVER REGARDING BED THEN WILL CALL US BACK.
--- NOTE | 2018-09-07 13:38 | NUR ---
SAGE RICO CALLED TO GIVE ROOM NUMBER [id number], METAL MIXER ARRANGED WITH [facility] [employer] [facility] FOR METAL MIXER [id number]. PRIMARY NURSE [place] AWARE.. SAGE CALLED AT [phone] AND LEFT MESSAGE WITH METAL MIXER TIME.
[2018-09-07] MEDS: THERAHONEY GEL 42.5 GM TP SCH (13:55)
--- NOTE | 2018-09-07 14:00 | NUR ---
WOUND CARE GIVEN. DRESSING CHANGED ORDERED. WOUND CARE PICTURE TAKEN. PATIENT TOLERATED IT. MEYERS CATHETER CARE GIVEN. PATIENT NOW RESTING IN BED WATCHING TV. NO SIGN OF DISTRESS OR SOB NOTED ON ROOM AIR. RESPIRATIONS EVEN AND UNLABORED. NO COMPLAINTS OF PAIN AT THIS TIME. SAFETY AND ISOLATION PRECAUTIONS IN PLACE, CALL LIGHT WITHIN REACH, WILL CONTINUE TO MONITOR PATIENT.
--- NOTE | 2018-09-07 14:11 | NUR ---
ORDERED MEDICATION GIVEN. PATIENT TOLERATED IT WELL. BP 122/72 HR 62. NO SIGN OF DISTRESS OR SOB NOTED ON ROOM AIR. RESPIRATIONS EVEN AND UNLABORED. PATIENT RELAXED IN BED WATCHING TV. NO COMPLAINTS OF PAIN AT THIS TIME. SAFETY AND ISOLATION PRECAUTIONS IN PLACE, CALL LIGHT WITHIN REACH, WILL CONTINUE TO MONITOR PATIENT.
--- NOTE | 2018-09-07 15:25 | NUR ---
PATIENT DISCHARGE INFORMATION DISCUSSED WITH PATIENT. SHE VERBALIZED UNDERSTANDING AND SIGNED ALL PAPERWORK. WILL CONTINUE TO MONITOR PATIENT.
--- NOTE | 2018-09-07 15:30 | NUR ---
IV REMOVED, IV CATHETER INTACT, MINIMAL BLEEDING NOTED. PATIENT'S ID BANDS CUT. [facility] WAITING TO TRANSPORT PATIENT BACK TO [facility].
--- NOTE | 2018-09-07 15:35 | NUR ---
REPORT GIVEN TO YING AT [facility]. PATIENT WHEELED OFF FLOOR BY [facility]. PATIENT IN STABLE CONDITION. PATIENT TOOK ALL HER BELONGINGS WITH HER.
== END 2018-09-07 15:35 | DRG 637 ==
LOC: MED 20:33 → MMU 23:42
PROVIDERS: ADMIT Family Medicine; ATTEND Family Medicine
DX: E11.65 Type 2 diabetes mellitus with hyperglycemia (principal); N17.0 Acute kidney failure with tubular necrosis; L89.153 Pressure ulcer of sacral region, stage 3; G93.41 Metabolic encephalopathy; E87.2 Acidosis; E87.1 Hypo-osmolality and hyponatremia; E44.0 Moderate protein-calorie malnutrition; N39.0 Urinary tract infection, site not specified; N13.2 Hydronephrosis with renal and ureteral calculous obstruction; I12.9 Hypertensive chronic kidney disease with stage 1 through stage 4 chronic kidney disease, or unspecified chronic kidney disease; E11.22 Type 2 diabetes mellitus with diabetic chronic kidney disease; N18.9 Chronic kidney disease, unspecified; E03.9 Hypothyroidism, unspecified; D64.9 Anemia, unspecified; E78.5 Hyperlipidemia, unspecified; K21.9 Gastro-esophageal reflux disease without esophagitis; F32.9 Major depressive disorder, single episode, unspecified; Z96.642 Presence of left artificial hip joint; K59.00 Constipation, unspecified; R26.81 Unsteadiness on feet; D63.8 Anemia in other chronic diseases classified elsewhere; F43.9 Reaction to severe stress, unspecified; Z79.4 Long term (current) use of insulin; Z79.899 Other long term (current) drug therapy; Z68.20 Body mass index [BMI] 20.0-20.9, adult
CPT/HCPCS: 36415; 70450; 71045; 76705; 76770; 80048; 80053; 81001; 82150; 82306; 82607; 82728; 82746; 82948; 83036; 83540; 83605; 83690; 83735; 83880; 84100; 84134; 84436; 84443; 85025; 85045; 85610; 85730; 86704; 86706; 86708; 86709; 86803; 87040; 87081; 87086; 87186; 87340; 92610; 93005; 96361; 96365; 96366; 96375; 97110; 97116; 97530; 99285; C1758; J0696; J1644; J1815; J7030; J7060; Q0092

== ENCOUNTER 2019-02-04 23:32 | Inpatient (IN) | payer OTHER ==
[~2019-02-04] VITALS: Ht 165.1 cm; Wt 62.6 kg
[~2019-02-04 23:32] MED LIST: ACET-9882 PO; AMLO5TAB PO; BISA-188 RC; CLON0.1T42 PO; FAMO-90 PO; FLEPED RC; HYDR-1102 PO; INSU-1163 SQ; INSU100S22 SUBQ; LACT10CA PO; LEVO0.124 PO; MAGN400S60 PO; METO25TA PO; MULT-1469 PO; PAX20 PO; ROC2I IV; Therahoney Gel TP; VITA1TAB44 PO; ZGUARD TP
[2019-02-04 23:33] VITALS: BP 168/85
--- NOTE | 2019-02-05 00:18 | NUR ---
PT BREEZY BLS. TAKEN TO BED 7
[2019-02-05] MEDS ORDERED: NACL 0.9% 1,000 ML IV SCH ×2 (01:07→04:57)
--- NOTE | 2019-02-05 01:09 | NUR ---
68 Y/O BIB AMBULANCE FROM [facility]. C/O HYPERGLYCEMIA. UNABLE TO OBTAIN BLOOD SUGAR AT THE MOMENT, READS TOO HIGH. RECEIVED 15 UNITS HUMALOG AT FACILITY AT APPROXIMATELY 2245. PT HAS HX OF DEMENTIA. UNABLE TO VERBALIZE CONDITION OF WELL BEING. ERMD AWARE. WILL CONTINUE TO MONITOR.
[2019-02-05 01:57] LABS: BASOPHILS # (AUTO) 0.1 K/uL (0.00-0.22); BASOPHILS % (AUTO) 1.1 % (0.0-2.0); EOSINOPHILS # (AUTO) 0.2 K/uL (0-0.4); EOSINOPHILS % (AUTO) 2.6 % (0.0-4.0); HEMATOCRIT 35.2 % (36-48); HEMOGLOBIN 11.4 g/dL (12.0-16.0); LYMPHOCYTES # (AUTO) 1.2 K/uL (2.5-16.5); LYMPHOCYTES % (AUTO) 18.1 % (20.5-51.1); MEAN CORPUSCULAR HEMOGLOBIN 31 pg (27-31); MEAN CORPUSCULAR HGB CONC 32 g/dL (33-37); MEAN CORPUSCULAR VOLUME 96.3 fL (80-94); MONOCYTES # (AUTO) 0.8 K/uL (0.8-1.0); MONOCYTES % (AUTO) 11.9 % (1.7-9.3); NEUTROPHILS # (AUTO) 4.4 K/uL (1.8-7.7); NEUTROPHILS % (AUTO) 66.3 % (42.2-75.2); PLATELET COUNT (AUTO) 230 K/uL (140-450); RED BLOOD CELL COUNT(AUTO) 3.65 MIL/uL (4.20-5.40); RED CELL DISTRIBUTION WIDTH 15.8 % (11.6-13.7); WHITE BLOOD COUNT (AUTO) 6.6 K/uL (4.8-10.8)
[2019-02-05 02:42] LABS: ANION GAP 18.5 (8-16); CARBON DIOXIDE 24.6 mmol/L (21-32); POTASSIUM 5.1 mmol/L (3.5-5.1)
[2019-02-05 02:43] LABS: ALBUMIN 2.7 g/dL (3.4-5.0); CREATININE 3.5 mg/dL (0.6-1.3); TOTAL BILIRUBIN 0.6 mg/dL (0.0-1.0)
--- NOTE | 2019-02-05 03:02 | NUR ---
PT TAKEN TO CT
[2019-02-05] MEDS ORDERED: NACL 0.9% 1,000 ML IV ONE (03:10)
[2019-02-05] MEDS ORDERED: INSULIN REGULAR, HUMAN 100 UNIT/ML VIAL SUBQ ONE (03:10)
[2019-02-05 03:27] LABS: APPEARANCE,URINE CLOUDY (CLEAR); BILIRUBIN,URINE NEGATIVE (NEGATIVE); BLOOD, URINE 4+ (NEGATIVE); COLOR,URINE YELLOW (YELLOW); NITRITE, URINE POSITIVE (NEGATIVE); UGLUCOSE NEGATIVE (NEGATIVE)
[2019-02-05] MEDS ORDERED: cefTRIAXone 1,000 MG VIAL ONE (03:27)
[2019-02-05 03:28] LABS: LEUKOCYTE ESTERASE ,URINE 4+ (NEGATIVE); RBC,URINE TOO NUMEROUS TO COUN /HPF (0-5); WBC,URINE TOO MANY TO COUNT /HPF (0-5)
--- NOTE | 2019-02-05 03:30 | NUR ---
PT RETURN FROM CT
[2019-02-05] MEDS ORDERED: DOCUSATE SODIUM 100 MG GELCAP PO PRN (05:00)
[2019-02-05] MEDS ORDERED: ONDANSETRON 4 MG/2 ML VIAL IM/IVP PRN (05:00)
[2019-02-05] MEDS ORDERED: HYDROcodone/APAP 7.5/325 MG 1 TAB PO PRN (05:00)
[2019-02-05] MEDS ORDERED: ACETAMINOPHEN 325 MG TAB PO PRN (05:00)
[2019-02-05] MEDS ORDERED: HUM SUBQ (05:23)
[2019-02-05] MEDS ORDERED: LANTUS SUBQ (05:25)
[2019-02-05] MEDS ORDERED: SYN.075 PO (05:30)
[2019-02-05] MEDS ORDERED: GABA100C PO (05:30)
[2019-02-05] MEDS ORDERED: MULT-1469 PO (05:31)
[2019-02-05] MEDS ORDERED: DEXTROSE 50% 50 ML SYR IVP PRN ×2 (06:00→06:40)
[2019-02-05] MEDS ORDERED: GLUCAGON 1 MG VIAL IVP PRN (06:00)
--- NOTE | 2019-02-05 06:15 | NUR ---
PT ADMITTED TO ICU BED #8. TRANSFERRED PT VIA GURNEY WITH [facility] EMT, STABLE CONDITION. REPORT GIVEN TO AGUILAR REYNOLDS. PT CARE TRANSFERRED TO RECEIVING RN.
[2019-02-05] MEDS ORDERED: INSULIN REGULAR, HUMAN 100 UNIT in NACL 0.9% 100 ML IV SCH ×2 (06:40)
[2019-02-05] MEDS ORDERED: BLOOD GLUCOSE MONITORING 1 DEV DEV FS SCH ×2 (06:40→07:30)
[2019-02-05] MEDS: INSULIN LISPRO SLIDING SCALE 100 UNITS/ML VIAL SUBQ PRN ×3 (06:48→21:28)
--- NOTE | 2019-02-05 07:30 | NUR ---
ASSUMED CARE OF PT. FROM AGUILAR RN,. PT IS AWAKE, SPEECH SLOW IN RESPONDING TO QUESTIONS. RESPONDED APPROPRIATELY TO SIMPLE QUESTIONS. MEDEROS BUT WEAKLY. IV 0.9 NS INFUSING AT 100 ML/HR VIA LEFT HAND IV SITE.
--- NOTE | 2019-02-05 07:45 | NUR ---
RT SUBCLAVIAN PERMACATH IN PLACE. DRESSINGS DRY AND INTACT.
[2019-02-05 07:57] LABS: BARBITURATE, URINE NEG. ng/ml (NEG <=200); BENZODIAZEPINE, URINE NEG. ng/mL (NEG <=200); CANNABINOID, URINE NEG. ng/mL (NEG <=50); COCAINE, URINE NEG. ng/mL (NEG <=300); OPIATE, URINE NEG. ng/mL (NEG <=2000); PHENCYCLIDINE SCREEN,URINE NEG. ng/mL (NEG <=25)
[2019-02-05 08:00] VITALS: BP 126/84
--- NOTE | 2019-02-05 08:00 | NUR ---
DR. LIANG AT BEDSIDE. ORDERED TO CHANGE MEYERS CATH.
--- NOTE | 2019-02-05 08:00 | NUR ---
MEYERS CATH FR. 16 INSERTED ASEPTICALLY. URINE SL CLOUDY WITH WHITE SEDIMENTS.
[2019-02-05 08:02] LABS: PROTHROMBIN TIME 9.9 secs (10.8-13.4)
--- NOTE | 2019-02-05 08:19 | NUR ---
PATIENT HAS BEEN SCREENED AND CATEGORIZED HIGH NUTRITION RISK. PATIENT WILL BE SEEN WITHIN 1-2 DAYS OF ADMISSION. 02/05/19-02/06/[address]
[2019-02-05 08:32] LABS: FREE T4 (FREE THYROXINE) 0.69 ng/dL (0.76-1.46); MAGNESIUM 2.1 mg/dL (1.8-2.4); PHOSPHORUS 4.4 mg/dL (2.5-4.9)
[2019-02-05] MEDS ORDERED: SENN-73 PO (08:57)
[2019-02-05] MEDS: INSULIN LANTUS 100 UNITS/ML 10 ML VIAL SUBQ SCH ×2 (09:08→21:00)
[2019-02-05] MEDS: VIT-B COMP/VIT-C/FOLIC ACID 1 TAB PO SCH (09:45)
[2019-02-05] MEDS: hydrALAZINE 10 MG TAB PO SCH ×3 (09:45→16:43)
[2019-02-05] MEDS: amLODIPine 5 MG TAB PO SCH (09:46)
[2019-02-05] MEDS: FAMOTIDINE 20 MG TAB PO SCH (09:46)
--- NOTE | 2019-02-05 09:50 | NUR ---
DR. RALPH HERE TO SEE AND EXAMINE PT.
--- NOTE | 2019-02-05 10:00 | NUR ---
SL. CONFUSED AT TIMES, REORIENTED PRN. DENIES ANY DISCOMFORTS.
[2019-02-05] MEDS: PARoxetine 20 MG TAB PO SCH (10:21)
[2019-02-05] MEDS ORDERED: INSULIN LANTUS 100 UNITS/ML 10 ML VIAL SUBQ SCH (11:30)
[2019-02-05] MEDS ORDERED: DEXTROSE 50% 50 ML SYR IVP ONE (11:56)
[2019-02-05 12:00] VITALS: BP 138/67
[2019-02-05] MEDS ORDERED: DEXT 5% /NACL 0.9% 1,000 ML IV SCH (12:00)
--- NOTE | 2019-02-05 12:00 | NUR ---
BS 32, RECHECKED 35. DR. RUDD NOTIFIED. DEXTROSE 50% 1 AMP IVP GIVEN. IV CJANGED TO D50.9NS AT 200 ML/HR. PT SLEEPING BUT EASY TO AROUSE. ASSISTED IN REPOSITIONING SELF IN BED.
[2019-02-05] MEDS: BLOOD GLUCOSE MONITORING 1 DEV DEV FS SCH ×3 (12:09→21:30)
--- NOTE | 2019-02-05 13:45 | NUR ---
DR. MARS HERE TO SEE AND EXAMINE PT.
--- NOTE | 2019-02-05 13:49 | NUR ---
VANESSA SAENZ NOTIFIED OF NEED FOR DIALYSIS TOMORROW.
[2019-02-05] MEDS: THERAHONEY GEL 42.5 GM TP SCH (14:00)
[2019-02-05] MEDS ORDERED: LEVOTHYROXINE 0.025 MG TAB PO SCH (14:15)
--- NOTE | 2019-02-05 14:19 | NUR ---
02/05/19 RD INITIAL ASSESSMENT COMPLETED PLEASE REFER TO NUTRITION ASSESSMENT UNDER CARE ACTIVITY FOR ESTIMATED NUTRITIONAL NEEDS. 1. CONTINUE NPO MEDICALLY APPROPRIATE 2. CONSIDER A SWALLOW EVALUATION FOR RECOMMENDED DIET TEXTURES WITH A CCHO 60GM AND RENAL DIET 3. IF PATIENT FAILS SWALLOW EVALUATION CONSIDER A FNS CONSULT FOR TUBE FEEDING 4. RECOMMEND VITAMIN C 500 MG BID FOR WOUND 5. RD TO FOLLOW-UP 2-3 DAYS, HIGH RISK TIANNA LAMA RD
--- NOTE | 2019-02-05 14:46 | NUR ---
*S.T. Bedside swallow eval completed* See report. Pt presents w/ adequate oropharyngeal swallow function for textures given. Mildly prolonged mastication of soft solid. No overt s/s aspiration. Recommend: 1) Advance to mechanical soft chopped diet, thin liquids. Straws okay. 2) P.O. meds whole one at a time w/ water. 3) Nsg to assist w/ tray set up to promote self-feeding. No further tx indicated as pt appears to be functioning at her reported baseline. DC to nsg care. Endorsed to GAIL Dickens. Time [id number]
[2019-02-05 14:51] LABS: CARBON DIOXIDE 21.8 mmol/L (21-32); POTASSIUM 3.8 mmol/L (3.5-5.1)
[2019-02-05 16:00] VITALS: BP 138/69
--- NOTE | 2019-02-05 16:45 | NUR ---
DR. MARS UPDATED ON PT'S CONDITION. AWARE OF BS AND BP.
--- NOTE | 2019-02-05 16:48 | NUR ---
Solar Panel Installer Note: Per Paola from [facility] , patient is on a 7 day bed hold.
--- NOTE | 2019-02-05 17:40 | NUR ---
IV CHANGED TO 0.9 NS AT 100 ML/HR.
[2019-02-05] MEDS: NACL 0.9% 1,000 ML IV SCH (18:00)
--- NOTE | 2019-02-05 18:00 | NUR ---
FED DINNER. ATE 75%. NO DIFFICULTY IN SWALLOWING.
[2019-02-05 20:00] VITALS: BP 142/81
--- NOTE | 2019-02-05 20:00 | NUR ---
PT HAS EYES CLOSED; AROUSABLE, FOLLOWING COMMANDS. ABLE TO MOVE ALL EXTREMITIES, GENERALIZED WEAKNESS NOTED. NSR 80-90S, NO EDEMA NOTED, PALPABLE PERIPHERAL PULSES +1 BILATERAL PEDAL, RADIAL PULSES. LUNGS CLEAR TO BILATERAL UPPER LOBES AND DIMINISHED @ THE BASES. ABD SOFT NON DISTENDED, ACTIVE BOWEL SOUNDS. MEYERS CATH IN PLACE, CLOUDY, PERMACATH HD IN PLACE R UPPER CHEST. PERIPHERAL IV TO L HAND [address] WITH IVF INFUSING. SKIN NON INTACT, SACRAL BUTTOCKS WOUND PRESENT, WITH SURROUNDING SKIN BLANCHABLE REDNESS NOTED. BED LOCKED IN LOWEST POSITION. CALL LIGHT WITHIN REACH. DENIES PAIN @ THIS TIME, WILL CONTINUE TO OBSERVE.
[2019-02-05] MEDS ORDERED: SENNA 8.6 MG TAB PO PRN (21:00)
[2019-02-05] MEDS: ASCORBIC ACID 500 MG TAB PO SCH (21:32)
[2019-02-05] MEDS: GABAPENTIN 100 MG CAP PO SCH (21:32)
--- NOTE | 2019-02-05 22:15 | NUR ---
phone call to dr monk, read back ekg result
--- NOTE | 2019-02-05 23:44 | NUR ---
PT TURNED AND REPOSITIONED, DENIES PAIN @ THIS TIME. NO ACUTE DISTRESS NOTED. WILL CONTINUE TO OBSERVE
[2019-02-06] VITALS: BP 154/57
[2019-02-06] MEDS: THERAHONEY GEL 42.5 GM TP SCH ×2 (01:00→12:14)
--- NOTE | 2019-02-06 01:48 | NUR ---
BS RECHECKED 160, LANTUS HELD FOR PM DOSE DUE TO HYPOGLYCEMIA DURING DAY SHIFT. MD MADE AWARE, WILL CONTINUE TO OBSERVE.
[2019-02-06] MEDS: NACL 0.9% 1,000 ML IV SCH ×3 (03:00→23:00)
--- NOTE | 2019-02-06 03:30 | NUR ---
PT HAS EYES CLOSED, FLACC 0. NO ACUTE DISTRESS NOTED.
[2019-02-06 04:00] VITALS: BP 164/58
[2019-02-06 06:07] LABS: T4 (THYROXINE) 5.7 ug/dL (4.5-12.0)
[2019-02-06] MEDS ORDERED: LEVOTHYROXINE 0.075 MG TAB PO SCH (06:30)
[2019-02-06 06:48] LABS: ANION GAP 14.1 (8-16); CREATININE 2.9 mg/dL (0.6-1.3); POTASSIUM 4.1 mmol/L (3.5-5.1)
[2019-02-06] MEDS: LEVOTHYROXINE 0.1 MG TAB PO SCH (06:48)
[2019-02-06 06:56] LABS: BASOPHILS % (AUTO) 0.7 % (0.0-2.0); EOSINOPHILS # (AUTO) 0.3 K/uL (0-0.4); EOSINOPHILS % (AUTO) 4.5 % (0.0-4.0); HEMATOCRIT 32.6 % (36-48); HEMOGLOBIN 10.8 g/dL (12.0-16.0); LYMPHOCYTES # (AUTO) 1.6 K/uL (2.5-16.5); LYMPHOCYTES % (AUTO) 26.5 % (20.5-51.1); MEAN CORPUSCULAR HEMOGLOBIN 33 pg (27-31); MEAN CORPUSCULAR HGB CONC 33 g/dL (33-37); MEAN CORPUSCULAR VOLUME 98.3 fL (80-94); MONOCYTES # (AUTO) 0.4 K/uL (0.8-1.0); MONOCYTES % (AUTO) 6.8 % (1.7-9.3); NEUTROPHILS # (AUTO) 3.8 K/uL (1.8-7.7); NEUTROPHILS % (AUTO) 61.5 % (42.2-75.2); PLATELET COUNT (AUTO) 213 K/uL (140-450); RED BLOOD CELL COUNT(AUTO) 3.32 MIL/uL (4.20-5.40); RED CELL DISTRIBUTION WIDTH 16.2 % (11.6-13.7); WHITE BLOOD COUNT (AUTO) 6.1 K/uL (4.8-10.8)
[2019-02-06] MEDS: BLOOD GLUCOSE MONITORING 1 DEV DEV FS SCH ×4 (06:56→21:00)
[2019-02-06] MEDS: INSULIN LISPRO SLIDING SCALE 100 UNITS/ML VIAL SUBQ PRN ×3 (06:57→22:03)
[2019-02-06 07:09] LABS: MAGNESIUM 1.6 mg/dL (1.8-2.4); PHOSPHORUS 3.3 mg/dL (2.5-4.9)
--- NOTE | 2019-02-06 07:20 | NUR ---
RECEIVED REPORT FROM FACILITY SERVICE MANAGER RN AT BEDSIDE. PT AAOX1, HX DEMENTIA, ABLE TO FOLLOW SIMPLE COMMANDS. OPENS EYES SPONTANEOUSLY. NO S/S OF DISTRESS ON ON ROOM AIR. ST ON MONITOR. LUNG SOUNDS CLEAR. BOWEL SOUNDS ACTIVE. MEYERS CATH IN PLACE, DRAINING CLEAR YELLOW URINE WITH MUCOUS. SKIN NON-INTACT. SACRAL PRESSURE INJURY WITH FOAM DRESSING IN PLACE. IV NOTED TO LEFT HAND, 22G, PATENT, INTACT AND ASYMPTOMATIC, RUNNING NS AT 100ML/HR. R SUBCLAVIAN SRIRAM CATH NOTED, CURRENTLY HAVE HD, DIALYSIS NURSE AT BEDSIDE. HOB 30 DEG. SIDE RAILS UP X4. BED IN LOWEST POSITION. FALL PRECAUTIONS IN PLACE. WILL CONTINUE TO MONITOR.
--- NOTE | 2019-02-06 07:27 | NUR ---
REPORT GIVEN TO DAY SHIFT FOR CONTINUITY OF CARE.
--- NOTE | 2019-02-06 07:30 | NUR ---
DR LIANG AND RESIDENTS DID THEIR ROUNDING.
[2019-02-06 08:00] VITALS: BP 150/85
[2019-02-06] MEDS ORDERED: INFLUENZA VACCINE QUAD 0.5 ML SYR IMVAC PRN (08:10)
[2019-02-06] MEDS ORDERED: PNEUMOCOCCAL VACCINE 23 MCG/0.5 ML VIAL IMVAC SCH (08:30)
[2019-02-06] MEDS: VIT-B COMP/VIT-C/FOLIC ACID 1 TAB PO SCH (08:40)
[2019-02-06] MEDS: FAMOTIDINE 20 MG TAB PO SCH (08:40)
[2019-02-06] MEDS: PARoxetine 20 MG TAB PO SCH (08:42)
[2019-02-06] MEDS: amLODIPine 5 MG TAB PO SCH (08:42)
[2019-02-06] MEDS: ASCORBIC ACID 500 MG TAB PO SCH ×2 (08:42→21:53)
[2019-02-06] MEDS: hydrALAZINE 10 MG TAB PO SCH ×3 (08:42→17:36)
[2019-02-06] MEDS: INSULIN LANTUS 100 UNITS/ML 10 ML VIAL SUBQ SCH ×2 (08:57→21:00)
[2019-02-06] MEDS ORDERED: MAG SULF 2000 MG/WATER PREMIX 50 ML IV SCH (09:30)
--- NOTE | 2019-02-06 10:20 | NUR ---
DR PRATT CAME AND SEEN PT.
--- NOTE | 2019-02-06 10:35 | NUR ---
DR RALPH CAME AND SEEN PT, NO NEW ORDERS AT THIS TIME.
--- NOTE | 2019-02-06 11:02 | NUR ---
WOUND CARE EVALUATION NOTE: REASON FOR EVALUATION: SACRALCOCCYX AND LEFT BUTTOCK WOUNDS SKIN ASSESSMENT DONE WITH THIS 68 Y/O FEMALE PT ADMITTED TO [facility] WITH INITIAL DX HYPERGLYCEMIA AND UTI. PAST MEDICAL HX INCLUDES HTN, DM, HDL AND MULTIPLE PRESSURE ULCER WOUNDS. ALL ABOVE INFORMATION OBTAINED FROM ADMISSION H&P. PT IS AWAKE. SKIN IS WARM AND DRY, BLE HAIR GROWTH, NO EDEMA. DORSAL PEDAL PULSES PRESENT AND NORMAL. TOE NAILS LONG AND CURVED, CAPILLARY REFILLED < 2 SEC. PLAN OF CARE DISCUSSED WITH PRIMARY RN. AND PT. PT. IS FORGETFULL WITH DEMENTIA WILL NEED REINFORCE TEACHING ON PT. INTEGUMENTARY: -INCONTINENT ASSOCIATE DERMATITIS (IAD) TO: INNER BUTTOCKS EXTENDED TO SACRAL COCCYX, SKIN DENUDED -PRESSURE ULCER INJURY STAGE 3, SACROCOCCYX 7.5X3X0.2CM, WOUND BED 100 % GRANULATING TISSUE, MOIST NO ODOR, NO TUNNELING, NO UNDERMINING LUIS-WOUND SKIN MACERATED DENUDED SKIN EXTENDED TO INNER BUTTOCKS WITH SURROUNDING REDNESS INDICATED FURTHER DAMAGE - LEFT AND RIGHT HEELS BLANCHABLE REDNESS RECOMMENDATIONS: -APPLY Z-GUARD INNER BUTTOCKS EXTENDED TO LUIS ANAL, SKIN REDNESS BID AND PRN IF SOILING -CLEANSE SACRALCOCCYX WITH WOUND CLEANSING SOLUTION AND APPLY THERAHONEY SHEET AND Z-GUARD TO LUIS WOUND SKIN COVER WITH OPTIFOAM DRESSING CHANGE QM-W-F AND PRN IF SOILING -APPLY HEEL PROTECTORS TO BOTH HEELS AT ALL TIMES -OFFLOAD BILATERAL HEELS BY PLACING PILLOWS UNDER CALVES UNLESS OTHERWISE CONTRAINDICATED -PRESSURE REDISTRIBUTION SURFACE THERAPY -TURN AND REPOSITION Q2H, OFFLOAD SACRALCOCCYX AND BUTTOCKS BY TURNING RIGHT AND LEFT -CONTINUE TO FOLLOW RD RECOMMENDATIONS ALL ABOVE RECOMMENDATIONS DISCUSSED WITH PRIMARY RN. WILL FOLLOW UP PT Q7-10 DAYS. PLEASE CONTACT WOUND CARE NURSE FOR ANY QUESTION AND CHANGE OF WOUND CONDITION.
[2019-02-06] MEDS ORDERED: THERAHONEY WOUND DRESSING TP SCH (11:30)
[2019-02-06 12:00] VITALS: BP 155/67
[2019-02-06] MEDS ORDERED: Z-GUARD PASTE TP ONE (12:18)
--- NOTE | 2019-02-06 12:30 | NUR ---
RECEIVED PATIENT FROM EQUIPMENT TECHNICIAN. PATIENT IS AAO X1, ROOM AIR, FOLLOWS COMMANDS. PATIENT HAS A LEFT HAND 22G. RECEIVED DIALYSIS TODAY WITH 1.5L TAKEN OUT. 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 LAST BLOOD SUGAR PER EQUIPMENT TECHNICIAN IS 286. GAVE PATIENT 6U INSULIN. WILL CONTINUE WITH PLAN OF CARE.
--- NOTE | 2019-02-06 12:45 | NUR ---
TRANSPORT PT TO TELE 117, REPORT GIVEN TO DORITA. MADE HER AWARE, PT'S BG 286, HAVE NOT RECEIVED COVERAGE YET. WOUND CARE ALREADY DONE. LUNCH TRAY AT BEDSIDE.
--- NOTE | 2019-02-06 13:00 | NUR ---
ADMITTING TO [facility] TRANSFER STRIP IS SINUS RHYTHM OR 95
--- NOTE | 2019-02-06 13:45 | NUR ---
PATIENT HAS BEEN MOVED ONTO A WOUND BED. BED RAILS UP X2, PATIENT IS RESTING QUIETLY EATING LUNCH. NO COMPLAINTS AT THIS TIME.
--- NOTE | 2019-02-06 14:21 | NUR ---
NORMAL SALINE INFUSING AT 100ML/HR.
[2019-02-06 16:00] VITALS: BP 154/77
--- NOTE | 2019-02-06 17:34 | NUR ---
BLOOD SUGAR OF 114, NO INSULIN NEEDED. ADMINISTERED HYDRALAZINE PO. BP 154/77 PRIOR.
--- NOTE | 2019-02-06 18:14 | NUR ---
PATIENT RESTING QUIETLY IN BED. NO COMPLAINTS AT THIS TIME, ALL NEEDS MET. WILL ENDORSE TO NIGHT RN.
--- NOTE | 2019-02-06 18:33 | NUR ---
PATIENT REFUSED TO EAT DINNER AND STATED SHE DID NOT LIKE THE FOOD.
--- NOTE | 2019-02-06 19:25 | NUR ---
PT AT BED AWAKE, ALERT, ORIENTED X2, PERRLA 3MM, BRISK, PT BREATHING REGULARLY ON ROOM AIR, LUNG SOUNDS CLEAR THROUGHOUT, HEART RATE REGULAR S1S2 PRESENT, SR ON MONITOR, CAP REFILL <3S, PULSES 2+ BILATERAL UPPER AND LOWER EXTREMITIES, ABDOMEN SOFT, ROUND, NONDISTENDED, NONTENDER, ABDOMEN, SOFT, ROUND, NONDISTENDED, PT HAS GENERALIZED WEAKNESS, SKIN NON INTACT, SACRAL WOUND, OPTIFOAM IN PLACE, DRY AND INTACT. RIGHT SRIRAM CATH IN PLACE, PT HAS LEFT HAND IV 20 GAUGE, RUNNING NS AT 100 ML/HR. HOB 30 DEGREES, SIDE RAILS UP X2, BED AT LOWEST POSITION.
[2019-02-06 20:00] VITALS: BP 155/73
--- NOTE | 2019-02-06 21:30 | NUR ---
MEDICATIONS GIVEN. PT TOLERATED SWALLOWING MEDICATIONS WELL. PT AT BED AWAKE ON ROOM AIR. HOB 30 DEGREES, SIDE RAILS UP X2, BED AT LOWEST POSITION.
[2019-02-06] MEDS: GABAPENTIN 100 MG CAP PO SCH (21:53)
--- NOTE | 2019-02-06 23:15 | NUR ---
PT AT BED EYES CLOSED BREATHING REGULARLY. HOB 30 DEGREES, SIDE RAILS UP X2, BED AT LOWEST POSITION.
[2019-02-07] VITALS: BP 153/68
[2019-02-07] MEDS: THERAHONEY GEL 42.5 GM TP SCH ×2 (01:00→13:10)
--- NOTE | 2019-02-07 02:25 | NUR ---
PT AT BED EYES CLOSED BREATHING REGULARLY. HOB 30 DEGREES, SIDE RAILS UP X2, BED AT LOWEST POSITION.
[2019-02-07 04:00] VITALS: BP 172/87
[2019-02-07] MEDS: cloNIDine 0.1 MG TAB PO PRN (04:35)
--- NOTE | 2019-02-07 04:35 | NUR ---
VITAL SIGNS CHECKED. BP ELEVATED, CATAPRES GIVEN PO. WILL CONTINUE TO MONITOR.
--- NOTE | 2019-02-07 06:15 | NUR ---
BP RECHECKED. 143/87 HR 80. WILL CONTINUE TO MONITOR.
[2019-02-07] MEDS: LEVOTHYROXINE 0.1 MG TAB PO SCH (06:47)
[2019-02-07] MEDS: DEXTROSE 50% 50 ML SYR IVP PRN (06:54)
--- NOTE | 2019-02-07 06:54 | NUR ---
BS CHECKED 48. GAVE D50 IV PUSH. WILL CONTINUE TO MONITOR.
[2019-02-07] MEDS: BLOOD GLUCOSE MONITORING 1 DEV DEV FS SCH ×4 (06:56→21:17)
[2019-02-07 07:07] LABS: HEPATITIS A ANTIBODY IGM Negative (Negative); HEPATITIS B CORE AB TOTAL Negative (Negative); HEPATITIS B SURFACE ANTIBODY Non Reactive (.); HEPATITIS B SURFACE ANTIGEN Negative (Negative)
--- NOTE | 2019-02-07 07:15 | NUR ---
CHANGE OF SHIFT REPORT GIVEN TO AM NURSE. WILL ENDORSE BLOOD SUGAR CHECK WHEN ITS DUE.
--- NOTE | 2019-02-07 07:16 | NUR ---
RECEIVED REPORT FROM TIRE BUILDING SUPERVISOR NURSE. PATIENT LYING DOWN IN BED SLEEPING, AROUSABLE BY VOICE. NO DISTRESS NOTED. DENIES ANY PAIN AT THIS TIME. RESPIRATIONS EVEN, UNLABORED, ON ROOM AIR. IV SITE INTACT, PATENT, AND INFUSING IVF PER MD ORDERS. AAOX3 WITH INTERMITTENT DELIRIUM. SKIN COLOR APPROPRIATE TO ETHNICITY, WARM TO TOUCH. HAS SACRAL ULCER NOTED, DRESSING DRY AND INTACT. MEYERS CATHETER IN PLACE. REVIEWED PLAN OF CARE WITH PATIENT. PATIENT VERBALIZED UNDERSTANDING. SAFETY MEASURES IN PLACE, CALL LIGHT WITHIN REACH. WILL CONTINUE TO MONITOR.
[2019-02-07 08:00] VITALS: BP 171/88
[2019-02-07] MEDS: INSULIN LANTUS 100 UNITS/ML 10 ML VIAL SUBQ SCH ×2 (09:00→21:53)
[2019-02-07] MEDS: NACL 0.9% 1,000 ML IV SCH ×2 (09:16→18:27)
[2019-02-07] MEDS: hydrALAZINE 10 MG TAB PO SCH ×3 (09:20→17:11)
[2019-02-07] MEDS: ASCORBIC ACID 500 MG TAB PO SCH ×2 (09:20→21:46)
[2019-02-07] MEDS: VIT-B COMP/VIT-C/FOLIC ACID 1 TAB PO SCH (09:20)
[2019-02-07] MEDS: PARoxetine 20 MG TAB PO SCH (09:20)
[2019-02-07] MEDS: FAMOTIDINE 20 MG TAB PO SCH (09:21)
[2019-02-07] MEDS: amLODIPine 5 MG TAB PO SCH (09:21)
--- NOTE | 2019-02-07 09:31 | NUR ---
PATIENT SITTING IN BED, SLEEPING, AROUSABLE BY VOICE. NO DISTRESS NOTED. SCHEDULED MEDICATIONS DUE GIVEN. LANTUS INSULIN NOT GIVEN AT THIS TIME DUE TO GLUCOSE 48 THIS MORNING AND PM NURSE GAVE D50 IV. RIGHT UPPER SRIRAM CATH DRESSING CHANGED IT IS COMING OFF. WILL CONTINUE TO MONITOR
[2019-02-07] MEDS: CHLORHEXADINE GLUC 2% CLOTH TP SCH (11:30)
[2019-02-07] MEDS: MUPIROCIN CA NASAL 2% 1GM TUBE NS SCH (11:30)
--- NOTE | 2019-02-07 11:31 | NUR ---
PATIENT LYING DOWN IN BED SLEEPING, AROUSABLE BY VOICE. NO DISTRESS NOTED. DENIES ANY PAIN. SCHEDULED MEDICATIONS DUE GIVEN. WILL CONTINUE TO MONITOR.
[2019-02-07 12:00] VITALS: BP 158/90
[2019-02-07] MEDS: INSULIN LISPRO SLIDING SCALE 100 UNITS/ML VIAL SUBQ PRN ×3 (12:58→21:19)
--- NOTE | 2019-02-07 13:06 | NUR ---
02/07/19 RD FOLLOW UP COMPLETED PLEASE REFER TO NUTRITION PROGRESS NOTE UNDER CARE ACTIVITY FOR ESTIMATED NUTRITION NEEDS. RD RECOMMENDATIONS: 1. RECOMMEND ADDING RENAL DIET ONTO MECHANICAL SOFT, CCHO 60 GM DIET D/T WITH ESRD ON HD. 2. IF PT CONTINUES TO NOT MEET NUTRITIONAL NEEDS, CONSIDER NEPRO BID. --NOTE PO INTAKE IS IMPROVING 3. RD TO FOLLOW-UP 3-5 DAYS, MODERATE RISK GRACIELA ETIENNE, RD
--- NOTE | 2019-02-07 13:11 | NUR ---
PATIENT SITTING IN BED WITH LUNCH TRAY IN FRONT. NO DISTRESS NOTED. SCHEDULED MEDICATIONS DUE GIVEN. WILL CONTINUE TO MONITOR.
[2019-02-07 16:00] VITALS: BP 161/95
--- NOTE | 2019-02-07 17:15 | NUR ---
PATIENT LYING DOWN IN BED SLEEPING, AROUSABLE BY VOICE. NO DISTRESS NOTED. CONDITION UNCHANGED. SCHEDULED MEDICATIONS DUE GIVEN. WILL CONTINUE TO MONITOR.
--- NOTE | 2019-02-07 19:15 | NUR ---
GAVE REPORT TO ORTHOTIC/PROSTHETIC PRACTITIONER NURSE FOR CONTINUITY OF CARE. PATIENT IN STABLE CONDITION
--- NOTE | 2019-02-07 19:35 | NUR ---
RECEIVED FROM AM RN IN BED AWAKE . CALL LIGHT WITH IN REACH. CARE PLANS FOR THE NIGHT DISCUSSED WITH HER. NOTED WITH DISORIENTATION. CLEAR SPEECH. ABLE TO VERBALIZE SIMPLE NEEDS. TELEMETRY MONITORING. WITH SACRAL WOUND PRESENT . ENCOURAGED TO CALL FOR ANY HELP SHE MAY NEED OR IF IN PAIN. NEEDS WILL BE ANTICIPATED AND WILL BE MET.
[2019-02-07 20:01] VITALS: BP 154/89
[2019-02-07] MEDS: GABAPENTIN 100 MG CAP PO SCH (21:46)
[2019-02-08] MEDS: THERAHONEY GEL 42.5 GM TP SCH ×2 (00:36→12:24)
[2019-02-08 00:57] VITALS: BP 152/72
--- NOTE | 2019-02-08 01:06 | NUR ---
SLEEPING AT THIS TIME. WAKES UP EASILY WHEN TOUCHED. CALL LIGHT WITH IN REACH.
[2019-02-08] MEDS: NACL 0.9% 1,000 ML IV SCH (01:43)
--- NOTE | 2019-02-08 03:02 | NUR ---
ROCEPHIN 1 GM ADMINISTERED IVPB. PT. SLEEPING WELL. WAKES UP EASILY WHEN CALLED BY NAME. NO COMPLAINTS DONE. SLEPT BACK. CALL LIGHT WITH IN REACH.
[2019-02-08 04:07] VITALS: BP 157/82
[2019-02-08] MEDS: BLOOD GLUCOSE MONITORING 1 DEV DEV FS SCH ×4 (05:30→21:00)
[2019-02-08] MEDS: INSULIN LISPRO SLIDING SCALE 100 UNITS/ML VIAL SUBQ PRN ×3 (05:32→22:11)
[2019-02-08] MEDS: LEVOTHYROXINE 0.1 MG TAB PO SCH (05:58)
--- NOTE | 2019-02-08 05:59 | NUR ---
BLOOD SUGAR CHECK DONE . IT WAS 222 MG/DL PER FINGERSTICK. INSULIN HUMALOG COVERAGE ADMINISTERED 4 UNITS. TOLERATED WELL. NO PAIN COMPLAINTS DONE. TELEMETRY MONITORING.
--- NOTE | 2019-02-08 06:31 | NUR ---
WILL ENDORSE TO AM RN FOR CONTINUITY OF CARE. SLEEPING BUT WAKES UP EASILY WHEN TOUCHED OR CALLED BY NAME. NO COMPLAINTS OF SOB OR PAIN THIS SHIFT. ON TELEMETRY MONITORING. MEYERS CATHETER DRAINING WELL WITH YELLOW URINE.
--- NOTE | 2019-02-08 07:20 | NUR ---
RECEIVED REPORT FROM NUT THREADER NURSE. PATIENT LYING DOWN IN BED SLEEPING, AROUSABLE BY VOICE. NO DISTRESS NOTED. DENIES ANY PAIN AT THIS TIME. RESPIRATIONS EVEN, UNLABORED, ON ROOM AIR. IV SITE INTACT, PATENT, AND INFUSING IVF PER MD ORDERS. AAOX3 WITH INTERMITTENT DELIRIUM. SKIN COLOR APPROPRIATE TO ETHNICITY, WARM TO TOUCH. HAS SACRAL ULCER NOTED, DRESSING DRY AND INTACT. MEYERS CATHETER IN PLACE. REVIEWED PLAN OF CARE WITH PATIENT. PATIENT VERBALIZED UNDERSTANDING. SAFETY MEASURES IN PLACE, CALL LIGHT WITHIN REACH. WILL CONTINUE TO MONITOR.
[2019-02-08 08:00] VITALS: BP 176/99
[2019-02-08] MEDS: INSULIN LANTUS 100 UNITS/ML 10 ML VIAL SUBQ SCH ×2 (09:41→21:00)
[2019-02-08] MEDS: PARoxetine 20 MG TAB PO SCH (09:46)
[2019-02-08] MEDS: VIT-B COMP/VIT-C/FOLIC ACID 1 TAB PO SCH (09:46)
[2019-02-08] MEDS: FAMOTIDINE 20 MG TAB PO SCH (09:47)
[2019-02-08] MEDS: amLODIPine 5 MG TAB PO SCH (09:48)
[2019-02-08] MEDS: ASCORBIC ACID 500 MG TAB PO SCH ×2 (09:48→22:14)
[2019-02-08] MEDS: hydrALAZINE 10 MG TAB PO SCH ×3 (09:49→16:59)
[2019-02-08 09:57] LABS: HEMATOCRIT 38.2 % (36-48); HEMOGLOBIN 12.7 g/dL (12.0-16.0); MEAN CORPUSCULAR HEMOGLOBIN 32 pg (27-31); MEAN CORPUSCULAR HGB CONC 33 g/dL (33-37); MEAN CORPUSCULAR VOLUME 95.8 fL (80-94); PLATELET COUNT (AUTO) 215 K/uL (140-450); RED BLOOD CELL COUNT(AUTO) 3.98 MIL/uL (4.20-5.40); RED CELL DISTRIBUTION WIDTH 16.4 % (11.6-13.7)
--- NOTE | 2019-02-08 09:59 | NUR ---
PATIENT SITTING DOWN IN BED WATCHING TV. NO DISTRESS NOTED. CONDITION UNCHANGED. SCHEDULED MEDICATIONS DUE GIVEN. WILL CONTINUE TO MONITOR.
[2019-02-08 10:29] LABS: ANION GAP 16.4 (8-16); CARBON DIOXIDE 22.4 mmol/L (21-32); CREATININE 2.4 mg/dL (0.6-1.3); POTASSIUM 3.8 mmol/L (3.5-5.1)
[2019-02-08 10:42] LABS: BASOPHILS % (MANUAL) 0 % (0-2); EOSINOPHILS % (MANUAL) 5 % (0-4); LYMPHOCYTES % (MANUAL) 28 % (20-46); MONOCYTES % (MANUAL) 6 % (5-12)
--- NOTE | 2019-02-08 11:40 | NUR ---
PATIENT LYING DOWN IN BED WATCHING TV. NO DISTRESS NOTED. DENIES ANY PAIN. CONDITION UNCHANGED. WILL CONTINUE TO MONITOR.
[2019-02-08 12:00] VITALS: BP 180/98
[2019-02-08] MEDS: cloNIDine 0.1 MG TAB PO PRN (12:24)
[2019-02-08] MEDS: CHLORHEXADINE GLUC 2% CLOTH TP SCH (12:25)
[2019-02-08] MEDS: MUPIROCIN CA NASAL 2% 1GM TUBE NS SCH (12:25)
--- NOTE | 2019-02-08 12:30 | NUR ---
SCHEDULED MEDICATIONS DUE GIVEN. CONDITION UNCHANGED. WILL CONTINUE TO MONITOR.
--- NOTE | 2019-02-08 15:30 | NUR ---
PATIENT SITTING DOWN IN BED WATCHING TV. CONDITION UNCHANGED. WILL CONTINUE TO MONITOR .
[2019-02-08 16:00] VITALS: BP 141/86
--- NOTE | 2019-02-08 17:00 | NUR ---
VANESSA FROM [facility] NOTIFIED OF THE HD ORDER FOR TOMORROW.
--- NOTE | 2019-02-08 17:30 | NUR ---
PATIENT LYING DOWN IN BED WATCHING TV. NO DISTRESS NOTED. CONDITION UNCHANGED. WILL CONTINUE TO MONITOR.
--- NOTE | 2019-02-08 19:11 | NUR ---
GAVE REPORT TO PASTRY COOK NURSE FOR CONTINUITY OF CARE. PATIENT IN STABLE CONDITION.
--- NOTE | 2019-02-08 19:20 | NUR ---
RECEIVED FROM AM RN IN BED AWAKE AND ALERT. WATCHING TV. NO SOB. NEEDS WILL BE ANTICIPATED AND WILL BE MET. PT. ON SPECIAL WOUND BED RT SACRAL WOUND. NO COMPLAINT OF PAIN AT THIS TIME. TELEMETRY MONITORING.
[2019-02-08 20:01] VITALS: BP 156/82
[2019-02-08] MEDS ORDERED: VANCOMYCIN PER PHARMACY MC PRN (21:25)
[2019-02-08] MEDS ORDERED: VANCOMYCIN 1GM/DEXT 5% PREMIX 200 ML IV ONE (21:35)
[2019-02-08] MEDS: GABAPENTIN 100 MG CAP PO SCH (22:14)
[2019-02-08] MEDS ORDERED: VANCOMYCIN 1,000 MG VIAL ONE (22:18)
--- NOTE | 2019-02-08 22:30 | NUR ---
STILL AWAKE AND WATCHING TV. NO COMPLAINTS. CALL LIGHT WITH IN REACH. TELEMETRY MONITORING. NEEDS ANTICIPATED AND MET.
[2019-02-08] MEDS: PIPERACILLIN/TAZOBACTAM 2.25 GM in DEXTROSE 5% 50 ML IV SCH (23:00)
[2019-02-09] VITALS: BP 155/80
[2019-02-09] MEDS ORDERED: PIPERACILLIN/TAZOBACTAM 2.25 GM VIAL IV ONE ×2 (00:32→05:31)
--- NOTE | 2019-02-09 01:49 | NUR ---
PT. SLEEPING. NEEDS ANTICIPATED AND MET. ABLE TO VERBALIZE SIMPLE NEEDS.
[2019-02-09] MEDS: THERAHONEY GEL 42.5 GM TP SCH ×2 (01:53→13:33)
--- NOTE | 2019-02-09 04:00 | NUR ---
SLEEPING WOKE UP ESILY WHEN VITALS TAKEN. NO COMPLAINTS DONE.
[2019-02-09 04:37] VITALS: BP 149/76
[2019-02-09] MEDS: BLOOD GLUCOSE MONITORING 1 DEV DEV FS SCH ×5 (05:00→21:00)
[2019-02-09] MEDS: DEXTROSE 50% 50 ML SYR IVP PRN (05:16)
[2019-02-09] MEDS: LEVOTHYROXINE 0.1 MG TAB PO SCH (05:39)
--- NOTE | 2019-02-09 06:00 | NUR ---
BLOOD SUGAR CHECK AT 5 AM WAS 65. ADMINISTERED D50 IVP AND RE-CHECKED AFTER AN HOUR . BLOOD SUGAR 144. PT. WOKE UP FOR ME EASILY. ABLE TO VERBALIZE WELL AND NO S/S OF HYPOGLYCEMIA. TELEMETRY MONITORING. ALL NEEDS ANTICIPATED AND MET. TOTAL CARE RT WEAKNESS.
[2019-02-09] MEDS: PIPERACILLIN/TAZOBACTAM 2.25 GM in DEXTROSE 5% 50 ML IV SCH ×2 (06:13→21:00)
--- NOTE | 2019-02-09 07:20 | NUR ---
SLEPT WELL THIS SHIFT. ENDORSED TO AM RN FOR CONTINUITY OF CARE.
--- NOTE | 2019-02-09 07:21 | NUR ---
RECEIVED REPORT FROM CASKET COVERER NURSE. PATIENT LYING DOWN IN BED SLEEPING, AROUSABLE BY VOICE. NO DISTRESS NOTED. DENIES ANY PAIN AT THIS TIME. RESPIRATIONS EVEN, UNLABORED, ON ROOM AIR. IV SITE INTACT, PATENT, AND INFUSING IVF PER MD ORDERS. AAOX3 WITH INTERMITTENT DELIRIUM. SKIN COLOR APPROPRIATE TO ETHNICITY, WARM TO TOUCH. HAS SACRAL ULCER NOTED, DRESSING DRY AND INTACT. MEYERS CATHETER IN PLACE, BUT LEAKING. REVIEWED PLAN OF CARE WITH PATIENT. PATIENT VERBALIZED UNDERSTANDING. SAFETY MEASURES IN PLACE, CALL LIGHT WITHIN REACH. WILL CONTINUE TO MONITOR.
[2019-02-09 07:43] LABS: HEMATOCRIT 37.1 % (36-48); HEMOGLOBIN 12.1 g/dL (12.0-16.0); MEAN CORPUSCULAR HEMOGLOBIN 31 pg (27-31); MEAN CORPUSCULAR HGB CONC 33 g/dL (33-37); MEAN CORPUSCULAR VOLUME 94.7 fL (80-94); PLATELET COUNT (AUTO) 196 K/uL (140-450); RED BLOOD CELL COUNT(AUTO) 3.92 MIL/uL (4.20-5.40); RED CELL DISTRIBUTION WIDTH 16.2 % (11.6-13.7); WHITE BLOOD COUNT (AUTO) 5.7 K/uL (4.8-10.8)
[2019-02-09 08:00] VITALS: BP 159/95
--- NOTE | 2019-02-09 08:00 | NUR ---
HEMODIALYSIS NURSE AT BEDSIDE STARTING HD. WILL CONTINUE TO MONITOR.
[2019-02-09 08:38] LABS: ANION GAP 15.3 (8-16); CARBON DIOXIDE 23.6 mmol/L (21-32); CREATININE 2.6 mg/dL (0.6-1.3); POTASSIUM 3.9 mmol/L (3.5-5.1)
[2019-02-09 08:48] LABS: MAGNESIUM 1.9 mg/dL (1.8-2.4); PHOSPHORUS 4.3 mg/dL (2.5-4.9)
[2019-02-09] MEDS: amLODIPine 5 MG TAB PO SCH (09:00)
[2019-02-09] MEDS: INSULIN LANTUS 100 UNITS/ML 10 ML VIAL SUBQ SCH (09:00)
[2019-02-09] MEDS: hydrALAZINE 10 MG TAB PO SCH ×3 (09:00→17:55)
[2019-02-09 09:38] LABS: EOSINOPHILS % (MANUAL) 4 % (0-4); LYMPHOCYTES % (MANUAL) 20 % (20-46); MONOCYTES % (MANUAL) 6 % (5-12)
[2019-02-09] MEDS: VIT-B COMP/VIT-C/FOLIC ACID 1 TAB PO SCH (09:39)
[2019-02-09] MEDS: ASCORBIC ACID 500 MG TAB PO SCH (09:40)
[2019-02-09] MEDS: FAMOTIDINE 20 MG TAB PO SCH (09:40)
[2019-02-09] MEDS: PARoxetine 20 MG TAB PO SCH (09:40)
--- NOTE | 2019-02-09 09:42 | NUR ---
PATIENT LYING DOWN IN BED, HD IN PROGRESS. NO DISTRESS NOTED. SCHEDULED MEDICATIONS DUE GIVEN. LANTUS NOT GIVEN AT THIS TIME DUE TO LOW GLUCOSE 61 PER RN REPORTS. HEPARIN SUB-Q NOT GIVEN HD NURSE WILL GIVE 5,000 UNITS INTO EACH PORT AFTER HD. WILL CONTINUE TO MONITOR.
--- NOTE | 2019-02-09 10:22 | NUR ---
PATIENT VOMITED SMALL AMOUNT <5 ML DURING DIALYSIS, ZOFRAN GIVEN AT THIS TIME.
[2019-02-09] MEDS ORDERED: VITC500 PO (11:07)
[2019-02-09] MEDS: CHLORHEXADINE GLUC 2% CLOTH TP SCH (11:18)
[2019-02-09] MEDS: MUPIROCIN CA NASAL 2% 1GM TUBE NS SCH (11:18)
[2019-02-09] MEDS ORDERED: Vancomycin Per Pharmacy MC (11:39)
[2019-02-09] MEDS ORDERED: MUPI2CRE22 NS (11:39)
[2019-02-09] MEDS ORDERED: SYN.1 PO (11:39)
[2019-02-09] MEDS ORDERED: D50SYR IVP (11:39)
[2019-02-09] MEDS ORDERED: CHLO118S2 TP (11:39)
[2019-02-09] MEDS ORDERED: Therahoney Gel TP (11:39)
[2019-02-09] MEDS ORDERED: HUMSLIDE SUBQ (11:39)
[2019-02-09] MEDS ORDERED: ZOS2.25I IV ×2 (11:39→11:54)
[2019-02-09] MEDS ORDERED: GLUC-805 FS (11:39)
[2019-02-09] MEDS ORDERED: GLUC1VIA IVP (11:39)
[2019-02-09] MEDS ORDERED: VANC1PLA7 IV ×2 (11:54→15:15)
[2019-02-09] MEDS ORDERED: LACT10CA1 PO (11:55)
[2019-02-09 12:00] VITALS: BP 158/88
[2019-02-09] MEDS: INSULIN LISPRO SLIDING SCALE 100 UNITS/ML VIAL SUBQ PRN ×2 (12:48→17:55)
--- NOTE | 2019-02-09 14:00 | NUR ---
PATIENT SITTING IN BED WATCHING TV. NO DISTRESS NOTED. CONDITION UNCHANGED. WILL CONTINUE TO MONITOR .
--- NOTE | 2019-02-09 15:32 | NUR ---
[place] [facility]POKE WITH JESUS ALBERTO , PT CAN GO TO ROOM 18C PER DR MONTEZ MRSA IS COLONIZED .#TO GIVE REPORT [phone]. ARRANGED TRANSPORT WITH [facility] # [id number] BANK ACCOUNTANT TIME IS 7:30 PM
[2019-02-09 16:00] VITALS: BP 176/88
--- NOTE | 2019-02-09 16:30 | NUR ---
ASSISTED COUNT TEAM CLERK IN CLEANING AND REPOSITIONING PATIENT. WILL CONTINUE TO MONITOR.
[2019-02-09] MEDS: cloNIDine 0.1 MG TAB PO PRN (17:55)
--- NOTE | 2019-02-09 18:00 | NUR ---
CALLED [facility] AND GAVE REPORT TO STEPHANIE REYNOLDS. ANSWERED ALL OF RN'S QUESTIONS REGARDING TRANSFER. NOTIFIED RN OF ESTIMATED TRANSPORT TIME OF 1929 BY DISTANT. STEPHANIE VERBALIZED COMPLETE UNDERSTANDING AND TO AWAIT FOR PATIENT'S ARRIVAL. NOTIFIED ROBETRH, PATIENT CONSERVATOR, ABOUT TRANSFER TO [facility] AT 1930 TODAY. ANSWERED ALL OF ROBERTH'S QUESTIONS REGARDING TRANSFER AND VERBALIZED UNDERSTANDING. DISCHARGE INSTRUCTIONS PROVIDED TO PATIENT.VERBALIZED UNDERSTANDING, REINFORCEMENT NEEDED. INSTRUCTIONS ON MEDICATIONS CHANGES/NEW MEDICATIONS, DIET REGIMEN, AND ANTIBIOTIC REGIMEN. PATIENT VERBALIZED UNDERSTANDING. PATIENT HAS INTERRMITTENT CONFUSION
--- NOTE | 2019-02-09 19:25 | NUR ---
GAVE REPORT TO VP SOFTWARE NURSE FOR CONTINUITY OF CARE. PATIENT IN STABLE CONDITION.
--- NOTE | 2019-02-09 19:26 | NUR ---
RECEIVED PT FROM AM SHIFT. PT AWAKE, ALERT X 1; BEDREST; WITH RIGHT SRIRAM CATH ON RIGHT CHEST; WITH RIGHT FA G 22; PT HAD DIALYSIS THIS AM;ON ANTIBIOTICS VANCO FOR DECUBITUS ULCER AND ZOSYN FOR PYELONEPHRITIS TO CONTINUE AT [facility]. PLACED IN LOW BED. CALL LIGHT WITHIN REACH.
--- NOTE | 2019-02-09 19:27 | NUR ---
PER ENDORSEMENT PT MRSA COLONIZED; PT NOT ON ISOLATION ANYMORE. PT HAS NO MEYERS CATHETER UPON RECEIPT
[2019-02-09 20:00] VITALS: BP 149/89
--- NOTE | 2019-02-09 20:00 | NUR ---
PT TRYING TO GET UP SITTING, PATIENT RETURNED BACK TO [place]. PREPARED DRESSING GOWN FOR DISCHARGE. EXPLAINED TO THE PT TO CALL NURSE WHEN SHE WANTS TO SIT UP. NEED PT SERVICES AT THE SNF ON DISCHARGE. REPORT GIVEN TO JUANI LOZOYA ENDORSED BY PREVIOUS NURSE.
--- NOTE | 2019-02-09 20:30 | NUR ---
[facility] CALLED IP AND THEY SAID THEY WILL BE HERE FOR ANOTHER HOUR
--- NOTE | 2019-02-09 21:25 | NUR ---
PT DISCHARGED AND TAKEN BY [facility], WITH 2 ATTENDANTS. REPORT GIVEN TO THE [facility] FOR IV ANTIBIOTIC AND PT SERVICES AT THE SNF; ALSO INSTRUCTED PT IS A FALL RISK.
== END 2019-02-09 21:25 | DRG 682 ==
LOC: MED 23:32 → MIC 02-05 05:01 → MTU 02-06 12:45
PROVIDERS: ADMIT Family Medicine; ATTEND Family Medicine
PROC: 5A1D70Z Performance of Urinary Filtration, Intermittent, Less than 6 Hours Per Day (ICD-10-PCS; principal; 2019-02-06)
PROC: 3E0234Z Introduction of Serum, Toxoid and Vaccine into Muscle, Percutaneous Approach (ICD-10-PCS; 2019-02-06)
PROC: 5A1D70Z Performance of Urinary Filtration, Intermittent, Less than 6 Hours Per Day (ICD-10-PCS; 2019-02-09)
DX: N17.0 Acute kidney failure with tubular necrosis (principal); L89.153 Pressure ulcer of sacral region, stage 3; E11.00 Type 2 diabetes mellitus with hyperosmolarity without nonketotic hyperglycemic-hyperosmolar coma (NKHHC); E43 Unspecified severe protein-calorie malnutrition; G93.41 Metabolic encephalopathy; R65.21 Severe sepsis with septic shock; N39.0 Urinary tract infection, site not specified; I12.0 Hypertensive chronic kidney disease with stage 5 chronic kidney disease or end stage renal disease; E87.1 Hypo-osmolality and hyponatremia; N18.6 End stage renal disease; N12 Tubulo-interstitial nephritis, not specified as acute or chronic; E87.8 Other disorders of electrolyte and fluid balance, not elsewhere classified; E83.42 Hypomagnesemia; E11.65 Type 2 diabetes mellitus with hyperglycemia; E11.21 Type 2 diabetes mellitus with diabetic nephropathy; E11.22 Type 2 diabetes mellitus with diabetic chronic kidney disease; K21.9 Gastro-esophageal reflux disease without esophagitis; F03.90 Unspecified dementia, unspecified severity, without behavioral disturbance, psychotic disturbance, mood disturbance, and anxiety; E78.5 Hyperlipidemia, unspecified; B96.89 Other specified bacterial agents as the cause of diseases classified elsewhere; I10 Essential (primary) hypertension; E03.9 Hypothyroidism, unspecified; Z88.8 Allergy status to other drugs, medicaments and biological substances; Z79.899 Other long term (current) drug therapy; Z99.2 Dependence on renal dialysis; Z87.442 Personal history of urinary calculi; Z22.322 Carrier or suspected carrier of Methicillin resistant Staphylococcus aureus; Z80.9 Family history of malignant neoplasm, unspecified; Z68.23 Body mass index [BMI] 23.0-23.9, adult
CPT/HCPCS: 36415; 51702; 70450; 71045; 76770; 80048; 80053; 80305; 81001; 82009; 82140; 82150; 82948; 83036; 83605; 83690; 83735; 83880; 84100; 84436; 84439; 84443; 84479; 84484; 85025; 85610; 85730; 86704; 86706; 86708; 86709; 86803; 87040; 87081; 87086; 87186; 87340; 90732; 90935; 92610; 93005; 96361; 96365; 96372; 97110; 97530; 99285; J0696; J1644; J1815; J2405; J2543; J3370; J3475; J7030; J7042; J7060; Q0092

== ENCOUNTER 2019-07-13 14:55 | Inpatient (IN) | payer OTHER ==
[~2019-07-13] VITALS: Ht 165.1 cm; Wt 57.2 kg
[~2019-07-13 14:55] MED LIST changes: -BISA-188 RC; +CHLO118S2 TP; +D50SYR IVP; -FLEPED RC; +GABA100C PO; +GLUC-805 FS; +GLUC1VIA IVP; +HUMSLIDE SUBQ; -INSU-1163 SQ; -INSU100S22 SUBQ; -LACT10CA PO; +LACT10CA1 PO; +LANTUS SUBQ; -LEVO0.124 PO; -MAGN400S60 PO; -METO25TA PO; -MULT-1469 PO; +MUPI2CRE22 NS; -ROC2I IV; +SENN-73 PO; +SYN.1 PO; +VANC1PLA7 IV; +VITC500 PO; +Vancomycin Per Pharmacy MC; -ZGUARD TP; +ZOS2.25I IV
[2019-07-13 14:57] VITALS: BP 190/80
--- NOTE | 2019-07-13 15:10 | NUR ---
68 Y/O F BIBA FROM [facility], C/C GENERALIZED WEAKNESS AND POOR APPETITE. PER EMS PT HAS REFUSED DIALYSIS X 2 TREATMENTS. PER PT REFUSED DUE TO BEING "COLD" IN DIALYSIS FACILITY. PT A/OX2 TO NAME AND PLACE. RIGHT UPPER CHEST CATHETER. PT CALM/COOPERATIVE. BS ON FIELD 173. HX,RX--SEE CHART.
--- NOTE | 2019-07-13 15:10 | NUR ---
XRAY AT BEDSIDE
--- NOTE | 2019-07-13 15:10 | NUR ---
ERMD AT BEDSIDE
[2019-07-13 16:02] LABS: BASOPHILS # (AUTO) 0.1 K/uL (0.00-0.22); BASOPHILS % (AUTO) 1.2 % (0.0-2.0); EOSINOPHILS # (AUTO) 0.3 K/uL (0-0.4); HEMATOCRIT 42.7 % (36-48); HEMOGLOBIN 14.2 g/dL (12.0-16.0); LYMPHOCYTES # (AUTO) 1.7 K/uL (2.5-16.5); LYMPHOCYTES % (AUTO) 20.5 % (20.5-51.1); MEAN CORPUSCULAR HEMOGLOBIN 33 pg (27-31); MEAN CORPUSCULAR HGB CONC 33 g/dL (33-37); MEAN CORPUSCULAR VOLUME 98.7 fL (80-94); MONOCYTES # (AUTO) 0.5 K/uL (0.8-1.0); MONOCYTES % (AUTO) 5.9 % (1.7-9.3); NEUTROPHILS # (AUTO) 5.7 K/uL (1.8-7.7); NEUTROPHILS % (AUTO) 68.4 % (42.2-75.2); PLATELET COUNT (AUTO) 285 K/uL (140-450); RED BLOOD CELL COUNT(AUTO) 4.33 MIL/uL (4.20-5.40); RED CELL DISTRIBUTION WIDTH 13.9 % (11.6-13.7); WHITE BLOOD COUNT (AUTO) 8.3 K/uL (4.8-10.8)
[2019-07-13 16:26] LABS: ANION GAP 13.5 (8-16); CARBON DIOXIDE 29.7 mmol/L (21-32); CREATININE 3.9 mg/dL (0.6-1.3); POTASSIUM 4.2 mmol/L (3.5-5.1)
[2019-07-13 16:33] LABS: ALBUMIN 3.3 g/dL (3.4-5.0); TOTAL BILIRUBIN 0.5 mg/dL (0.0-1.0)
[2019-07-13 16:34] LABS: BILIRUBIN,URINE NEGATIVE (NEGATIVE); BLOOD, URINE 1+ (NEGATIVE); COLOR,URINE YELLOW (YELLOW); LEUKOCYTE ESTERASE ,URINE 3+ (NEGATIVE); NITRITE, URINE NEGATIVE (NEGATIVE); PH,URINE 8.5 (5.0-9.0); UGLUCOSE NEGATIVE (NEGATIVE)
[2019-07-13 16:40] LABS: APPEARANCE,URINE CLOUDY (CLEAR)
--- NOTE | 2019-07-13 16:47 | NUR ---
FLU SWAP COLLECTED
[2019-07-13 16:49] LABS: RBC,URINE 0-5 /HPF (0-5); WBC,URINE 80-100 /HPF (0-5)
[2019-07-13] MEDS ORDERED: cefTRIAXone 1,000 MG VIAL ONE (16:49)
--- NOTE | 2019-07-13 19:16 | NUR ---
RECEIVED REPORT FROM GAIL BLOOM. PT EATING DINNER AT THIS TIME. BED IN LOWEST POSITION, SIDE RAIL UP X1. VSS.
[2019-07-13] MEDS ORDERED: ACETAMINOPHEN 325 MG TAB PO PRN (20:05)
[2019-07-13] MEDS ORDERED: HYDROcodone/APAP 7.5/325 MG 1 TAB PO PRN (20:05)
[2019-07-13] MEDS ORDERED: ONDANSETRON 4 MG/2 ML VIAL IVP PRN (20:05)
[2019-07-13 20:45] VITALS: BP 160/84
--- NOTE | 2019-07-13 20:45 | NUR ---
ADMITTED A 68F FROM ER. CAME BY ASHVIN DUE TO GENERALIZED WEAKNESS AND POOR APPETITE. AWAKE,ALERT AND ORIENTED X3. HAD A LOOSE BM MODERATE AMOUNT.POSITIONED PT FOR COMFORT AFTER PT WAS CLEANED AND KEPT DRY. ORIENTED TO HOSPITAL ROUTINES. PT HAS A HD ACCESS ON THE RT UPPER CHEST. DRESSING IN PLACED. PLAN OF CARE DISCUSSED AND . NEED REINFORCEMENT. WITH REDNESS ON BUTTOCKS. BED ON LOW POSITION. FREQ ROUNDS NEEDED. CALL LIGHT PLACED WITHIN REACH. SIDE RAILS UP X2 AND BED ALARM ON. CONTACT ISOLATION ENFORCED DUE TO HX:MRSA NARES. WILL CONTINUE TO MONITOR.
--- NOTE | 2019-07-13 20:53 | NUR ---
Patient will be admitted to care of DR. LIANG. Admited to TELE. Will go to room 116. Belongings list completed. Report to NESTOR REYNOLDS.
[2019-07-13 21:00] LABS: PROTHROMBIN TIME 10.3 secs (10.8-13.4)
[2019-07-13] MEDS: DOCUSATE SODIUM 100 MG GELCAP PO SCH (21:00)
--- NOTE | 2019-07-13 21:00 | NUR ---
PT ON HEPARIN SUB Q. SCD NOT INDICATED AT THIS TIME.
[2019-07-13] MEDS ORDERED: DOCU-299 PO (21:03)
[2019-07-13 21:09] LABS: FREE T4 (FREE THYROXINE) 1.11 ng/dL (0.76-1.46); MAGNESIUM 2.3 mg/dL (1.8-2.4); PHOSPHORUS 3.3 mg/dL (2.5-4.9)
[2019-07-13 21:10] LABS: THYROID STIMULATING HORMONE 10.57 uIU/mL (0.34-3.74)
[2019-07-13] MEDS: NACL 0.9% 1,000 ML IV SCH (22:26)
[2019-07-14 00:50] VITALS: BP 176/72
[2019-07-14] MEDS ORDERED: hydrALAZINE 20 MG/ML VIAL IVP ONE (01:35)
[2019-07-14] MEDS ORDERED: DEXTROSE 50% 50 ML SYR IVP PRN ×2 (02:45→09:00)
[2019-07-14] MEDS ORDERED: GLUCAGON 1 MG VIAL IVP PRN (02:45)
--- NOTE | 2019-07-14 02:54 | NUR ---
PT VOMITED TWICE. ADMINISTERED PRN ZOFRAN PER MD ORDER. PT TOLERATED WELL. NO SIGNS OF DISTRESS NOTED. WILL CONTINUE TO MONITOR
[2019-07-14] MEDS ORDERED: LANTUS SUBQ (03:27)
[2019-07-14] MEDS ORDERED: FOLI1TAB90 PO (03:27)
[2019-07-14] MEDS ORDERED: PHO667 PO (03:27)
[2019-07-14] MEDS ORDERED: INSU100S22 SUBQ (03:27)
[2019-07-14] MEDS ORDERED: HUMSLIDE SUBQ (03:27)
[2019-07-14] MEDS ORDERED: ACET1TAB93 PO (03:27)
[2019-07-14] MEDS ORDERED: DOCU-299 PO (03:27)
[2019-07-14] MEDS ORDERED: MULT-1469 PO (03:27)
[2019-07-14] MEDS ORDERED: PAX20 PO (03:27)
[2019-07-14] MEDS ORDERED: ONDA4TAB PO (03:27)
[2019-07-14] MEDS ORDERED: SYN.1 PO (03:27)
[2019-07-14 04:00] VITALS: BP 138/84
--- NOTE | 2019-07-14 04:00 | NUR ---
SLEEPING. NO S/S O ANY DISCOMFORT NOTED.
[2019-07-14] MEDS: hydrALAZINE 10 MG TAB PO SCH ×3 (04:48→21:59)
[2019-07-14] MEDS: cloNIDine 0.1 MG TAB PO SCH ×4 (06:00→23:55)
[2019-07-14] MEDS ORDERED: LEVOTHYROXINE 0.1 MG TAB PO SCH (06:30)
[2019-07-14] MEDS: BLOOD GLUCOSE MONITORING 1 DEV DEV FS SCH ×4 (06:34→20:22)
--- NOTE | 2019-07-14 06:34 | NUR ---
BLOOD SUGAR CHECKED RESULT 122. NO INSULIN NEEDED.
[2019-07-14] MEDS: LEVOTHYROXINE 0.1 MG TAB PO SCH (06:39)
[2019-07-14] MEDS: LEVOTHYROXINE 0.075 MG TAB PO SCH (06:40)
[2019-07-14 06:59] LABS: ANION GAP 16.2 (8-16); CARBON DIOXIDE 24.8 mmol/L (21-32); CREATININE 3.9 mg/dL (0.6-1.3)
[2019-07-14 07:00] LABS: BASOPHILS # (AUTO) 0.1 K/uL (0.00-0.22); BASOPHILS % (AUTO) 1.3 % (0.0-2.0); EOSINOPHILS # (AUTO) 0.3 K/uL (0-0.4); EOSINOPHILS % (AUTO) 3.4 % (0.0-4.0); HEMATOCRIT 42.3 % (36-48); HEMOGLOBIN 14.1 g/dL (12.0-16.0); LYMPHOCYTES # (AUTO) 1.2 K/uL (2.5-16.5); LYMPHOCYTES % (AUTO) 12.2 % (20.5-51.1); MEAN CORPUSCULAR HEMOGLOBIN 33 pg (27-31); MEAN CORPUSCULAR HGB CONC 33 g/dL (33-37); MEAN CORPUSCULAR VOLUME 98.4 fL (80-94); MONOCYTES # (AUTO) 0.5 K/uL (0.8-1.0); MONOCYTES % (AUTO) 4.6 % (1.7-9.3); NEUTROPHILS # (AUTO) 7.9 K/uL (1.8-7.7); NEUTROPHILS % (AUTO) 78.5 % (42.2-75.2); PLATELET COUNT (AUTO) 303 K/uL (140-450); RED CELL DISTRIBUTION WIDTH 14.1 % (11.6-13.7)
[2019-07-14 07:02] LABS: CHOL/HDL RATIO 3.6 (1-4.5); MAGNESIUM 2.1 mg/dL (1.8-2.4); PHOSPHORUS 3.8 mg/dL (2.5-4.9)
--- NOTE | 2019-07-14 07:10 | NUR ---
ENDORSED PT IN STABLE CONDITION TO AM NURSE.
--- NOTE | 2019-07-14 07:10 | NUR ---
RECEIVED REPORT FROM GAIL GRIJALVA. PT AROUSABLE TO NAME, DENIES PAIN. IV ON RT AC 20 GA RUNNING IVF PER ORDER, DRESSING I/C/D. RESPIRATIONS EVEN AND UNLABORED ON RA. ABD SOFT, ACTIVE BS, LBM 07/12. PT ON FALL RISK PRECAUTIONS, SAFETY MEASURES IN PLACE, CALL LIGHT WITHIN REACH. REVIEWED POC WITH PT, PT VERBALIZED UNDERSTANDING.
--- NOTE | 2019-07-14 07:50 | NUR ---
NOTIFIED DR. KWAN REGARDING 07/12 TROPONIN LEVEL 0.492, PER PHYSICIAN CONSULT FOR DR. PRATT IN PLACE.
[2019-07-14 08:00] VITALS: BP 124/79
--- NOTE | 2019-07-14 08:34 | NUR ---
PATIENT HAS BEEN SCREENED AND CATEGORIZED HIGH NUTRITION RISK. PATIENT WILL BE SEEN WITHIN 1-2 DAYS OF ADMISSION. 07/14/19-07/15/[address]
[2019-07-14] MEDS: DOCUSATE SODIUM 100 MG GELCAP PO SCH ×2 (08:57→22:05)
[2019-07-14] MEDS: FAMOTIDINE 20 MG TAB PO SCH ×2 (08:57→22:00)
[2019-07-14] MEDS: VIT-B COMP/VIT-C/FOLIC ACID 1 TAB PO SCH (08:57)
[2019-07-14] MEDS: CALCIUM ACETATE 667 MG TAB PO SCH ×3 (08:58→16:56)
[2019-07-14] MEDS: PARoxetine 20 MG TAB PO SCH (08:58)
[2019-07-14] MEDS: amLODIPine 5 MG TAB PO SCH (08:58)
--- NOTE | 2019-07-14 08:58 | NUR ---
PER DR. KWAN, HOLD [facility] AT THIS TIME, POSSIBLE HEMODIALYSIS TODAY.
[2019-07-14] MEDS ORDERED: INSULIN LISPRO SLIDING SCALE 100 UNITS/ML VIAL SUBQ PRN (09:00)
[2019-07-14] MEDS ORDERED: HYDRAGUARD CREAM TP PRN (09:00)
[2019-07-14] MEDS: INSULIN LANTUS 100 UNITS/ML 10 ML VIAL SUBQ SCH ×2 (09:05→22:11)
--- NOTE | 2019-07-14 09:05 | NUR ---
DR. RODRIGUEZ/AIRWAY TRAFFIC CONTROLLER AT BEDSIDE DOING ASSESSMENT ON PT, PT HAS NO S/S OF DISTRESS. Addendum: 07/14/19 at 09 by Carla Trevino RN LATE ENTRY 07/14/19 0905 ADMINISTERED MEDICATIONS PER ORDER, PT VERBALIZED UNDERSTANDING OF INDICATIONS AND POTENTIAL SIDE EFFECTS.
[2019-07-14] MEDS: FOLIC ACID 1 MG TAB PO SCH (09:09)
--- NOTE | 2019-07-14 09:54 | NUR ---
It Support Consultant Note: Basic Screen: Yes High Risk DC Screen [place]: ROBERTH LARKIN Home Relationship: FRIEND/DPOA Pre-Admission Living Arrangements: SNF Other: [facility] Prior ADL Needs Assistance Current Home Health Name/Tel: N/A Current DME/02 Name/Tel: [facility] Current Hospice Name/Tel: N/A Current Dialysis Name/Tel: [facility] Healthcare Decision Maker: Other Other: ODES[facility] - ROBERTH LARKIN Advance Directive No Physician Orders for Life Sustaining Treatment Form No Patient/Family Have Educational Needs No Discipline: Case Mgt/Social Svcs Tentative Discharge Plan/Destination: SNF/ECF Will require assistance post discharge: No Referred to Sales Center Manager: No Tentative Discharge Plan Summary: Patient is a 68-year-old female admitted for UTI. Patient has PMHX of diabetes, GERD, hypertension, renal disease, and thyroid disease. Patient was admitted from [facility]. SW contacted Paola from [facility] who stated that patient is mcc and is currently on a bed hold. Patient needs assistance with ADLs and is alert and oriented at baseline. Paola stated that patient has dialysis at [facility] on MWF. Patient's healthcare decision maker is ODESSA Encarnacion [phone]. Tentative discharge plan is for patient to return to [facility]. No further needs identified. Signature: LORIN Lomeil Date: Jul 14, 2019 Time: 09:53
[2019-07-14] MEDS ORDERED: BLOOD GLUCOSE MONITORING 1 DEV DEV FS SCH (11:30)
--- NOTE | 2019-07-14 11:40 | NUR ---
BS 211, NO S/S OF HYPERGLYCEMIA, WILL ADMINISTER HUMALOG PER SLIDING SCALE.
[2019-07-14 12:00] VITALS: BP 155/88
[2019-07-14] MEDS: INSULIN LISPRO SLIDING SCALE 100 UNITS/ML VIAL SUBQ PRN ×3 (12:02→22:12)
--- NOTE | 2019-07-14 12:03 | NUR ---
NOTIFIED DR. KWAN OF B/P 155/88, HR 108, PER PHYSICIAN HOLD CATAPRES AT THIS TIME, BUT ADMINISTER HYDRALAZINE, READ BACK ORDERS AND VERIFIED.
--- NOTE | 2019-07-14 14:05 | NUR ---
NOTIFIED K.MMj ACUTE DIALYSIS OF HD ORDER, PER VANESSA SAENZ ESTIMATED TIME OF ARRIVAL IS BETWEEN 5-6PM.
--- NOTE | 2019-07-14 14:09 | NUR ---
07/14/19 RD INITIAL ASSESSMENT COMPLETED PLEASE REFER TO NUTRITION ASSESSMENT UNDER CARE ACTIVITY FOR ESTIMATED NUTRITIONAL NEEDS. 1. CONTINUE RENAL AND CCHO 60GM DIET TOLERATED 2. RECOMMEND NEPRO BID 3. RD WILL PROVIDE NUTRITION EDUCATION ON RENAL DIET DURING NEXT VISIT 4. RD TO FOLLOW-UP 3-5 DAYS, MODERATE RISK TIANNA LAMA RD
[2019-07-14 16:00] VITALS: BP 158/91
--- NOTE | 2019-07-14 16:55 | NUR ---
ADMINISTERED 2 UNITS HUMALOG PER SLIDING SCALE FOR BS 214. PT NOTIFIED THAT HD NURSE IS COMING SOON.
--- NOTE | 2019-07-14 18:00 | NUR ---
HD RN MENDEZ STARTS HD, PT HAS NO S/S OF DISTRESS, RESPIRATIONS EVEN AND UNLABORED ON RA.
--- NOTE | 2019-07-14 19:30 | NUR ---
ENDORSED PT TO GAIL VOGT, PT HAS NO S/S OF DISTRESS AT THIS TIME.
--- NOTE | 2019-07-14 19:31 | NUR ---
RECEIVED BEDSIDE SHIFT REPORT FROM DAYSHIFT NURSE FOR CONTINUITY OF CARE. PT WAS AWAKE IN BED RECEIVING DIALYSIS WHICH STARTED AT 1800. NO SIGNS OF DISTRESS NOTED. RESPIRATIONS EVEN AND UNLABORED ON ROOM AIR. TELE MONITOR IN PLACE. SAFETY MEASURES IN PLACE. BED IN LOW POSITION AND CALL LIGHT WITHIN REACH.
[2019-07-14 20:00] VITALS: BP 141/81
[2019-07-14] MEDS: NACL 0.9% 1,000 ML IV SCH (20:03)
[2019-07-14] MEDS ORDERED: SENNA 8.6 MG TAB PO PRN (21:00)
--- NOTE | 2019-07-14 21:20 | NUR ---
DIALYSIS COMPLETE. ZERO OUTPUT. PATIENT TOLERATED WELL NO SIGNS OF DISTRESS NOTED. BP 163/84 HR 114. TELE MONITOR IN PLACE. SAFETY MEASURES IN PLACE CALL LIGHT WITHIN REACH
[2019-07-14] MEDS ORDERED: CRUSHER, PILL MC ONE (22:00)
--- NOTE | 2019-07-14 22:10 | NUR ---
ADMINISTERED 2100 MEDICATIONS TO PATIENT. PO AND SUBQ. PROVIDED MEDICATION EDUCATION AND SIDE EFFECTS. PT TOLERATED WELL. NO SIGNS OF DISTRESS NOTED. RESPIRATIONS EVEN AND UNLABORED ON ROOM AIR. TELE MONITOR IN PLACE. SAFETY MEASURES IN PLACE CALL LIGHT WITHIN REACH .
--- NOTE | 2019-07-14 23:55 | NUR ---
ADMINISTERED SCHEDULED 0000 MEDS TO PATIENT. OBTAINED VITALS. PT TOLERATED MEDICATION WELL. NO SIGNS OF DISTRESS NOTED
[2019-07-15] VITALS: BP 167/85
--- NOTE | 2019-07-15 01:25 | NUR ---
REASSESSED PT FOR CATAPRES. PT ASLEEP NO SIGNS OF DISTRESS NOTED. EASILY AROUSABLE. BP 147/76 HEART RATE 107
[2019-07-15 04:00] VITALS: BP 137/78
--- NOTE | 2019-07-15 04:00 | NUR ---
V/S CHECKED. REPOSITIONED PATIENT, PROVIDED LINEN CHANGE. AROUSABLE TO SOUND.
--- NOTE | 2019-07-15 05:48 | NUR ---
BLOOD GLUCOSE CHECKED . BS 54. ADMINISTERED PRN IVP DEXTROSE 50% PER MD ORDER. WILL REASSESS
[2019-07-15] MEDS: LEVOTHYROXINE 0.075 MG TAB PO SCH (05:55)
[2019-07-15] MEDS: hydrALAZINE 10 MG TAB PO SCH ×4 (05:55→21:55)
[2019-07-15] MEDS: LEVOTHYROXINE 0.1 MG TAB PO SCH (05:56)
--- NOTE | 2019-07-15 06:30 | NUR ---
ADMINISTERED CLONIDINE. PT REFUSED TO BE RECHECKED FOR BS. NO DISTRESS NOTED. ENDORSED TO AM SHIFT RN FOR CONTINUITY OF CARE
[2019-07-15] MEDS: cloNIDine 0.1 MG TAB PO SCH ×3 (07:05→13:20)
[2019-07-15 07:07] LABS: BASOPHILS # (AUTO) 0.1 K/uL (0.00-0.22); BASOPHILS % (AUTO) 1.7 % (0.0-2.0); EOSINOPHILS # (AUTO) 0.4 K/uL (0-0.4); EOSINOPHILS % (AUTO) 7.8 % (0.0-4.0); HEMATOCRIT 36.6 % (36-48); HEMOGLOBIN 12.1 g/dL (12.0-16.0); LYMPHOCYTES % (AUTO) 39.8 % (20.5-51.1); MEAN CORPUSCULAR HEMOGLOBIN 33 pg (27-31); MEAN CORPUSCULAR HGB CONC 33 g/dL (33-37); MEAN CORPUSCULAR VOLUME 98.5 fL (80-94); MONOCYTES # (AUTO) 0.4 K/uL (0.8-1.0); MONOCYTES % (AUTO) 8.7 % (1.7-9.3); NEUTROPHILS # (AUTO) 2.1 K/uL (1.8-7.7); PLATELET COUNT (AUTO) 222 K/uL (140-450); RED BLOOD CELL COUNT(AUTO) 3.72 MIL/uL (4.20-5.40); RED CELL DISTRIBUTION WIDTH 13.7 % (11.6-13.7)
[2019-07-15 07:08] LABS: MAGNESIUM 1.7 mg/dL (1.8-2.4); PHOSPHORUS 3.1 mg/dL (2.5-4.9)
[2019-07-15 07:12] LABS: ANION GAP 10.3 (8-16); CARBON DIOXIDE 30.1 mmol/L (21-32); CREATININE 2.6 mg/dL (0.6-1.3); POTASSIUM 3.4 mmol/L (3.5-5.1)
--- NOTE | 2019-07-15 07:15 | NUR ---
RECEIVED PT. FROM PROJECT MANAGEMENT MANAGER NURSESIN. PT. IS ALERT AND IN BED. IV ON THE RIGHT AC 20G WITH NS RUNNING AT 10ML/HR. WEAK GAIT, NEEDS 2 PERSON ASSIST. INCONTINENT IN BOTH BOWEL AND URINARY. 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 FALL PRECAUTION INITIATED. CALL LIGHT WITHIN REACH. WILL CONTINUE TO MONITOR.
[2019-07-15 07:18] LABS: FREE T4 (FREE THYROXINE) 1.12 ng/dL (0.76-1.46); THYROID STIMULATING HORMONE 8.21 uIU/mL (0.34-3.74)
--- NOTE | 2019-07-15 07:30 | NUR ---
ENDORSED PT. TO DIRECTOR OF USER EXPERIENCE NURSERAMBO, FOR CONTINUITY OF CARE.
[2019-07-15] MEDS: BLOOD GLUCOSE MONITORING 1 DEV DEV FS SCH ×4 (07:52→21:50)
[2019-07-15 08:00] VITALS: BP 110/65
--- NOTE | 2019-07-15 08:30 | NUR ---
PT REFUSED REASSESSMENT OF BLOOD SUGAR, EXPLAINED PURPOSE AND BENEFIT. PT. INSISTED TO EAT FIRST BEFORE RETAKING MEDICATION. WILL CONTINUE TO MONITOR.
[2019-07-15] MEDS: INSULIN LANTUS 100 UNITS/ML 10 ML VIAL SUBQ SCH ×2 (09:00→22:26)
--- NOTE | 2019-07-15 09:04 | NUR ---
PT'S BLOOD SUGAR TAKEN WITH VALUE OF 94. WILL CONTINUE TO MONITOR
--- NOTE | 2019-07-15 09:05 | NUR ---
CALLED DR. ESQUEDA ABOUT PT'S BLOOD SUGAR OF 95 FROM 54 AND ADMINISTRATION OF LANTUS INSULIN. DR. ESQUEDA SAYS TO HOLD THE LANTUS AND CONTINUE MONITOR OF BLOOD SUGAR. WILL FOLLOW THROUGH.
[2019-07-15] MEDS: CALCIUM ACETATE 667 MG TAB PO SCH ×3 (09:08→16:16)
[2019-07-15] MEDS: PARoxetine 20 MG TAB PO SCH (09:09)
[2019-07-15] MEDS: FAMOTIDINE 20 MG TAB PO SCH ×2 (09:10→21:55)
[2019-07-15] MEDS: amLODIPine 5 MG TAB PO SCH (09:11)
[2019-07-15] MEDS: FOLIC ACID 1 MG TAB PO SCH (09:11)
[2019-07-15] MEDS: DOCUSATE SODIUM 100 MG GELCAP PO SCH ×3 (09:12→22:20)
[2019-07-15] MEDS: VIT-B COMP/VIT-C/FOLIC ACID 1 TAB PO SCH (11:11)
[2019-07-15 12:00] VITALS: BP 127/73
[2019-07-15] MEDS: MUPIROCIN CA NASAL 2% 1GM TUBE NS SCH (13:11)
[2019-07-15] MEDS: CHLORHEXADINE GLUC 2% CLOTH TP SCH (13:20)
[2019-07-15] MEDS: INSULIN LISPRO SLIDING SCALE 100 UNITS/ML VIAL SUBQ PRN ×3 (13:28→22:39)
--- NOTE | 2019-07-15 14:20 | NUR ---
IV SITE LEAKAGE NOTED. PT. DOES NOT COMPLAIN OF PAIN AND NO SIGNS OF DISTRESS NOTED. IV REMOVED AND WILL ATTEMPT TO REINSERT NEW IV.
--- NOTE | 2019-07-15 14:25 | NUR ---
IV SITE REASSESSED. LINE IS PATENT AND FLUSHES WELL NOW. WILL RETAIN CURRENT IV AND NOT REINSERT ANOTHER. WILL CONTINUE TO MONITOR.
[2019-07-15 16:00] VITALS: BP 113/53
--- NOTE | 2019-07-15 16:19 | NUR ---
BLOOD SUGAR ASSESSED WITH A VALUE OF 267. PROTOCOL INITIATED, WILL GIVE HUMALOG.
--- NOTE | 2019-07-15 19:30 | NUR ---
ENDORSED PT. TO NUTRITION INTERN NURSERAMBO, FOR CONTINUITY OF CARE.
--- NOTE | 2019-07-15 19:31 | NUR ---
RECD. RESTING IN BED, AWAKE, A/OX3. RESPIRATION EVEN AND UNLABORED. IV OF NS AT TKO INFUSING RIGHT AC G20. WITH DIALYSIS RIGHT CHEST SRIRAM CATH, WITH DRESSING DRY AND INTACT. SAFETY MEASURES ENFORCED. BED IN THE LOWEST POSITION, CALL LIGHT IN REACH, BED ON ALARM. PLAN OF CARE FOR THE SHIFT DISCUSSED. VERBALIZED UNDERSTANDING. DENIES PAIN 0/10.
[2019-07-15 20:00] VITALS: BP 113/40
[2019-07-15] MEDS: NACL 0.9% 1,000 ML IV SCH (20:03)
--- NOTE | 2019-07-15 21:00 | NUR ---
Patient's Plan of Care was discussed and reviewed with MANAGER CLINICAL RESEARCH: RAMBO HERNANDEZ
--- NOTE | 2019-07-15 21:55 | NUR ---
STILL WATCHING TV. DUE PO MEDICATION GIVEN. SNACK FOR THE NIGHT OFFERED BUT REFUSED.
--- NOTE | 2019-07-15 22:52 | NUR ---
REFUSED HUMALOG SLIDING SCALE COVERAGE. EXPLAINED IT'S NEEDED TO MAINTAIN BLOOD SUGAR LEVEL BUT STILL REFUSED, ONLY WANTS THE LANTUS.
[2019-07-16] VITALS: BP 116/42
--- NOTE | 2019-07-16 00:40 | NUR ---
DUE CATAPRES NOT GIVEN BP IN THE LOW SIDE - 114, 55, HR - 69.
--- NOTE | 2019-07-16 02:00 | NUR ---
SLEEPING COMFORTABLY IN BED.
[2019-07-16 04:00] VITALS: BP 114/56
--- NOTE | 2019-07-16 05:29 | NUR ---
BP - 128/62, HR - 80. SCHEDULED APRESOLINE FOR THE MORNING GIVEN.
[2019-07-16] MEDS: BLOOD GLUCOSE MONITORING 1 DEV DEV FS SCH ×2 (05:46→11:54)
[2019-07-16] MEDS: LEVOTHYROXINE 0.1 MG TAB PO SCH (05:47)
[2019-07-16] MEDS: LEVOTHYROXINE 0.075 MG TAB PO SCH (05:48)
[2019-07-16] MEDS: hydrALAZINE 10 MG TAB PO SCH ×2 (05:49→13:28)
[2019-07-16] MEDS: cloNIDine 0.1 MG TAB PO SCH ×4 (06:00→12:13)
--- NOTE | 2019-07-16 06:00 | NUR ---
DR. CASTAÑEDA MADE AWARE OF SCHEDULED BP MEDS NOT GIVEN DUE TO LOW BP.
[2019-07-16 06:48] LABS: ANION GAP 11.1 (8-16); CARBON DIOXIDE 27.5 mmol/L (21-32); CREATININE 3.3 mg/dL (0.6-1.3); POTASSIUM 3.6 mmol/L (3.5-5.1)
[2019-07-16 06:57] LABS: EOSINOPHILS # (AUTO) 0.4 K/uL (0-0.4); EOSINOPHILS % (AUTO) 8.3 % (0.0-4.0); HEMATOCRIT 35.5 % (36-48); LYMPHOCYTES # (AUTO) 1.9 K/uL (2.5-16.5); LYMPHOCYTES % (AUTO) 37.9 % (20.5-51.1); MEAN CORPUSCULAR HEMOGLOBIN 34 pg (27-31); MEAN CORPUSCULAR HGB CONC 34 g/dL (33-37); MEAN CORPUSCULAR VOLUME 99.8 fL (80-94); MONOCYTES # (AUTO) 0.4 K/uL (0.8-1.0); MONOCYTES % (AUTO) 7.7 % (1.7-9.3); NEUTROPHILS # (AUTO) 2.2 K/uL (1.8-7.7); NEUTROPHILS % (AUTO) 45.1 % (42.2-75.2); PHOSPHORUS 3.6 mg/dL (2.5-4.9); PLATELET COUNT (AUTO) 211 K/uL (140-450); RED BLOOD CELL COUNT(AUTO) 3.56 MIL/uL (4.20-5.40); RED CELL DISTRIBUTION WIDTH 13.7 % (11.6-13.7)
--- NOTE | 2019-07-16 07:29 | NUR ---
STILL SLEEPING COMFORTABLY IN BED. SAFETY MAINTAINED DURING SHIFT. CONDITION REMAIN STABLE. ENDORSED TO AM SHIFT NURSE FOR CONTINUITY OF CARE.
--- NOTE | 2019-07-16 07:30 | NUR ---
RECEIVED REPORT FROM NIGHT NURSE, PT IS ASLEEP, PT IS STABLE, NO SIGNS OF DISTRESS NOTED, CALL LIGHT WITHIN REACH, UPDATE WHITEBOARD, PT HAS RIGHT AC 20G INFUSING NS AT TKO, SAFETY MEASURES IN PLACE, PT HAS R SRIRAM CATH FOR HD ON /SATURDAY
[2019-07-16 08:00] VITALS: BP 139/60
[2019-07-16] MEDS ORDERED: CEFT1SOL1 IV (08:34)
[2019-07-16] MEDS ORDERED: LACT10CA1 PO (08:35)
[2019-07-16] MEDS: CALCIUM ACETATE 667 MG TAB PO SCH ×2 (09:14→13:27)
[2019-07-16] MEDS: PARoxetine 20 MG TAB PO SCH (09:15)
[2019-07-16] MEDS: DOCUSATE SODIUM 100 MG GELCAP PO SCH (09:16)
[2019-07-16] MEDS: amLODIPine 5 MG TAB PO SCH (09:16)
[2019-07-16] MEDS: VIT-B COMP/VIT-C/FOLIC ACID 1 TAB PO SCH (09:18)
[2019-07-16] MEDS: FAMOTIDINE 20 MG TAB PO SCH (09:18)
[2019-07-16] MEDS: FOLIC ACID 1 MG TAB PO SCH (09:18)
[2019-07-16] MEDS: INSULIN LANTUS 100 UNITS/ML 10 ML VIAL SUBQ SCH (09:31)
--- NOTE | 2019-07-16 11:51 | NUR ---
CALLED [phone] NARAYAN KNOW THAT PT IV INFILTRATED AND PT DOES NOT WANT A NEW IV. PT WANTS NEW IV PLACED AT [facility] WHEN SHE TRANSPORT. Addendum: 07/16/19 at 1156 by Mily Tolliver RN [facility]
[2019-07-16 12:00] VITALS: BP 139/52
--- NOTE | 2019-07-16 12:05 | NUR ---
discharge planning: Received an order to dc back to [facility] for IV Antibiotic (Rocephin for 9 days). Order and clinicals faxed to [facility] and [facility]. Per Paola of [facility],they will review the clinicals and will give me a call back for the room number. Per Nasreen of [facility], transport Auth [id number]. Will set up transport with [facility]. Addendum: 07/16/19 at 1218 by Mariela Quezada CM [id number]: MET WITH THE PATIENT AT THE BEDSIDE TO DISCUSS DC PLANNING AND IS IN AGREEMENT. SHE STATED THAT HER IV SITE IS BOTHERING HER, I CHECKED THE SITE AND IS SWOLLEN AND WARM. TURNED THE IV OFF AND MADE THE PRIMARY RN DAMEON AWARE. SHE STATED SHE WILL COME CHECK THE SITE. IMM LETTER DISCUSSED WITH THE PATIENT, SIGNED AND PLACED IN THE CHART. Addendum: 07/16/19 at 1353 by Mariela Quezada CM PER PAOLA OF [facility], PATIENT WILL GO TO ROOM 19D UNDER DR. LIANG. PER MARIBELL OF [facility], FORKLIFT SUPERVISOR WILL BE AT 1430. PRIMARY RN STEPHIE MADE AWARE. DR. HORN MADE AWARE WELL.
[2019-07-16] MEDS: INSULIN LISPRO SLIDING SCALE 100 UNITS/ML VIAL SUBQ PRN (12:22)
--- NOTE | 2019-07-16 12:24 | NUR ---
ADMINISTERED HUMALOG FOR BLOOD SUGAR OF 284, PT EDUCATION GIVEN, PT CONFUSED AND REINFORCEMENT NEEDED, PT TOLERATED WELL, PT IS STABLE, CALL LIGHT WITHIN REACH.
[2019-07-16] MEDS: MUPIROCIN CA NASAL 2% 1GM TUBE NS SCH (13:27)
[2019-07-16] MEDS: CHLORHEXADINE GLUC 2% CLOTH TP SCH (13:28)
--- NOTE | 2019-07-16 13:30 | NUR ---
ADMINISTERED ORDERED MEDICATION, EDUCATION GIVEN, PT VERBALIZED UNDERSTANDING, PT IS STABLE, CALL LIGHT WITHIN REACH.
--- NOTE | 2019-07-16 14:06 | NUR ---
CONTACTED JUANI RICO #[phone], SPOKE WITH PREET. REPORT GIVEN. PREET IS ALSO AWARE REGARDING PT'S ISSUE WITH IV THAT SHE REFUSED TO HAVE IT RESTARTED HERE. PER PT SHE WANTED TO HAVE HER IV REESTABLISHED IN THE SNF. PT IS GOING TO ROOM 19-D.
--- NOTE | 2019-07-16 15:10 | NUR ---
PT DISCHARGED TO [facility] VIA ROUMAR, PT STABLE, PT PNA AND FLU VACCINE ARE UP TO DATE, CHARGE NURSE GAVE REPORT TO [facility].
== END 2019-07-16 15:10 | DRG 280 ==
LOC: MED 14:55 → MTU 20:03
PROVIDERS: ADMIT Family Medicine; ATTEND Family Medicine
PROC: 5A1D70Z Performance of Urinary Filtration, Intermittent, Less than 6 Hours Per Day (ICD-10-PCS; principal; 2019-07-14)
DX: I21.A1 Myocardial infarction type 2 (principal); N17.0 Acute kidney failure with tubular necrosis; N18.6 End stage renal disease; I12.0 Hypertensive chronic kidney disease with stage 5 chronic kidney disease or end stage renal disease; N39.0 Urinary tract infection, site not specified; D68.59 Other primary thrombophilia; E11.22 Type 2 diabetes mellitus with diabetic chronic kidney disease; E78.5 Hyperlipidemia, unspecified; F32.9 Major depressive disorder, single episode, unspecified; D63.1 Anemia in chronic kidney disease; K21.9 Gastro-esophageal reflux disease without esophagitis; E03.9 Hypothyroidism, unspecified; Z99.2 Dependence on renal dialysis; Z88.8 Allergy status to other drugs, medicaments and biological substances; Z79.899 Other long term (current) drug therapy; Z80.9 Family history of malignant neoplasm, unspecified; Z91.14 Patient's other noncompliance with medication regimen
CPT/HCPCS: 36415; 71045; 80048; 80053; 81001; 82150; 82948; 83036; 83605; 83690; 83735; 83880; 84100; 84439; 84443; 84484; 85025; 85610; 85730; 87040; 87081; 87086; 87186; 87804; 93005; 93925; 93970; 97110; 97116; 97161-GP; 97530; 99291; J0360; J0696; J1644; J1815; J2405; J7060; Q0092

== ENCOUNTER 2020-02-25 13:02 | Inpatient (IN) | payer OTHER, SELFPAY ==
[~2020-02-25] VITALS: Ht 170.2 cm; Wt 94.8 kg
[~2020-02-25 13:02] MED LIST changes: +ACET1TAB93 PO; +CALC667C12 PO; +CEFT1SOL1 IV; -CHLO118S2 TP; +DOCU-299 PO; +FOLI1TAB90 PO; -GABA100C PO; -GLUC-805 FS; +INSU100S22 SUBQ; +MULT-1469 PO; -MUPI2CRE22 NS; +ONDA4TAB PO; -Therahoney Gel TP; -VANC1PLA7 IV; -VITA1TAB44 PO; -VITC500 PO; -Vancomycin Per Pharmacy MC; -ZOS2.25I IV
--- NOTE | 2020-02-25 13:02 | NUR ---
PATIENT BREEZY BLS TO ER BED 02
[2020-02-25] MEDS ORDERED: NACL 0.9% 1,000 ML IV ONE (13:15)
[2020-02-25 13:19] VITALS: BP 147/65
--- NOTE | 2020-02-25 13:20 | NUR ---
RAD AT BEDSIDE
--- NOTE | 2020-02-25 13:26 | NUR ---
PATIENT PRESENTS TO ED WITH N/V WITH ONE EPISODE OF COFFEE GROUND EMESIS SINCE TODAY AND HYPOGLYCEMIA. PT STATES THAT SHE HAS NOT EATEN ALL DAY TODAY. DIAYLSIS ON M,F. DENIES N/V/D; SKIN IS PINK/WARM/DRY; AAOX4 WITH EVEN AND STEADY GAIT; LUNGS CLEAR BL; HR EVEN AND REGULAR; PT DENIES ANY FEVER, CP, SOB, OR COUGH AT THIS TIME; PATIENT STATES PAIN OF 0/10 AT THIS TIME; VSS; PATIENT POSITIONED FOR COMFORT; HOB ELEVATED; BEDRAILS UP X2; BED DOWN. ER MD MADE AWARE OF PT STATUS.
--- NOTE | 2020-02-25 13:28 | NUR ---
EKG BEING DONE AT BEDSIDE
--- NOTE | 2020-02-25 13:39 | NUR ---
LABS DRAWN AND GIVEN TO HAND STRIPPER
[2020-02-25 13:49] LABS: BASOPHILS # (AUTO) 0.1 K/uL (0.00-0.22); BASOPHILS % (AUTO) 1.2 % (0.0-2.0); EOSINOPHILS % (AUTO) 0.2 % (0.0-4.0); HEMATOCRIT 38.9 % (36-48); HEMOGLOBIN 12.5 g/dL (12.0-16.0); LYMPHOCYTES # (AUTO) 1.2 K/uL (2.5-16.5); MEAN CORPUSCULAR HEMOGLOBIN 32 pg (27-31); MEAN CORPUSCULAR HGB CONC 32 g/dL (33-37); MEAN CORPUSCULAR VOLUME 100.3 fL (80-94); MONOCYTES # (AUTO) 1.2 K/uL (0.8-1.0); MONOCYTES % (AUTO) 10.2 % (1.7-9.3); NEUTROPHILS # (AUTO) 9.3 K/uL (1.8-7.7); NEUTROPHILS % (AUTO) 78.4 % (42.2-75.2); PLATELET COUNT (AUTO) 246 K/uL (140-450); RED BLOOD CELL COUNT(AUTO) 3.88 MIL/uL (4.20-5.40); RED CELL DISTRIBUTION WIDTH 15.7 % (11.6-13.7); WHITE BLOOD COUNT (AUTO) 11.8 K/uL (4.8-10.8)
[2020-02-25 14:08] LABS: ALBUMIN 3.3 g/dL (3.4-5.0); ANION GAP 22.3 (8-16); ASPARTATE AMINOTRANSFERASE 16 U/L (15-37); CARBON DIOXIDE 21.4 mmol/L (21-32); CHLORIDE 97 mmol/L (98-107); POTASSIUM 4.7 mmol/L (3.5-5.1); SODIUM SERUM 136 mmol/L (136-145); TOTAL BILIRUBIN 0.4 mg/dL (0.0-1.0)
[2020-02-25 14:09] LABS: GLUCOSE 488 mg/dL (74-106)
[2020-02-25 14:10] LABS: CREATININE 4.8 mg/dL (0.6-1.3); UREA NITROGEN, BLOOD 64 mg/dL (7-18)
[2020-02-25 14:15] LABS: PROTHROMBIN TIME 10.9 secs (10.8-13.4)
[2020-02-25] MEDS ORDERED: ONDA4TAB PO (14:22)
[2020-02-25] MEDS ORDERED: ACET-9800 PO (14:22)
[2020-02-25] MEDS ORDERED: ATOR40TA PO (14:22)
[2020-02-25] MEDS ORDERED: SENN-73 PO (14:22)
[2020-02-25] MEDS ORDERED: GABA100C PO (14:22)
[2020-02-25] MEDS ORDERED: SYN.05 PO (14:22)
[2020-02-25] MEDS ORDERED: ZINC220C28 PO (14:22)
[2020-02-25] MEDS ORDERED: ACET-58 PO (14:22)
--- NOTE | 2020-02-25 14:29 | NUR ---
Patient appears to be resting comfortably in bed. Vital Signs within normal limits. Respirations even and unlabored. Will continue to monitor.
[2020-02-25] MEDS ORDERED: ONDANSETRON 4 MG/2 ML VIAL IVP ONE (15:00)
--- NOTE | 2020-02-25 15:01 | NUR ---
COVID SWAB COMPLETE AND HANDED TO GROOMING SALON MANAGER
[2020-02-25] MEDS: DEXTROSE 5% 1,000 ML IV SCH (15:40)
[2020-02-25 16:30] VITALS: BP 124/70
--- NOTE | 2020-02-25 16:30 | NUR ---
RECEIVED REPORT FROM ER NURSE TAMIKA PATIENT TRANSPORTED VIA GURNEY COMPLAINS OF VOMITING AND HYPERGLYCEMIA, TRANSFERRED TO BED AND ORIENTED TO ROOM, ON ROOM AIR, SKIN INTACT, WITH IV SITES INTACT AND PATENT ON THE RIGHT AC, NPO, WITH RIGHT CHEST IJ AND LEFT ARM AV SHUNT NOT IN USE CHECK VITAL SIGNS, MRSA SCREEN DONE,TELEMONITOR ATTACHED. SAFETY MEASURES IN PLACE AND CALL LIGHT WITHIN REACH. WILL CONTINUE TO MONITOR.
--- NOTE | 2020-02-25 16:40 | NUR ---
Patient will be admitted to care of DR KEITH. Admited to [facility]. Will go to room 117. Belongings list completed. Report to [facility].
--- NOTE | 2020-02-25 18:00 | NUR ---
PT IS RESTING WITH NO SIGNS OF DISTRESS. DENIES PAIN. VERBALIZED CONCERNS ABOUT MED DX ( GI BLEED ), PROVIDED EDUCATION. PATIENT VERBALIZED UNDERSTANDING WILL CONTINUE TO MONITOR.
[2020-02-25] MEDS ORDERED: guaiFENesin DM 200/20 MG-10 ML 10 ML UDC PO PRN (18:45)
[2020-02-25] MEDS ORDERED: ONDANSETRON 4 MG/2 ML VIAL IM/IVP PRN (18:45)
[2020-02-25] MEDS ORDERED: DOCUSATE SODIUM 100 MG GELCAP PO PRN (18:45)
[2020-02-25] MEDS ORDERED: POTASSIUM CHLORIDE 10 MEQ TABER PO PRN (18:45)
[2020-02-25] MEDS ORDERED: ACETAMINOPHEN 325 MG TAB PO PRN (18:45)
[2020-02-25] MEDS ORDERED: HYDROcodone/APAP 7.5/325 MG 1 TAB PO PRN (18:45)
[2020-02-25] MEDS ORDERED: ZOLPIDEM 5 MG TAB PO PRN (18:45)
--- NOTE | 2020-02-25 19:00 | NUR ---
ENDORSED PATIENT TO IN COMING RN. CURRENT REPORTS AND POC GIVEN TO NURSE. PATIENT DEMONSTRATED NO S/S OF DISTRESS.
[2020-02-25 19:07] LABS: CHOL/HDL RATIO 2.4 (1-4.5); FREE T4 (FREE THYROXINE) 1.11 ng/dL (0.76-1.46); MAGNESIUM 2.3 mg/dL (1.8-2.4); PHOSPHORUS 4.2 mg/dL (2.5-4.9)
--- NOTE | 2020-02-25 19:15 | NUR ---
RECEIVED PT IN STABLE CONDITION FROM AM NURSE FOR CONTINUITY OF CARE. TELE PT. AWAKE ,ALERT AND ORIENTED X 4. BED REST. NO C/O ANY DISCOMFORT NOR PAIN NOTED. HAS IVF ACCESS ON THE RT AC G#20. IVF HOLD. WILL CALL MD FOR PT GLUCOSE HIGH IN ER. FREQ ROUNDS NEEDED. BED ON LOW POSITION. SIDE RAILS UP X2. CALL LIGHT PLACED WITHIN REACH. HAS RT IJ SRIRAM HD CATHETER WITH DRESSING CLEAN AND DRY. LT UPPER ARM AV SHUNT IN PLACED. WILL CONTINUE TO MONITOR.
[2020-02-25 20:00] VITALS: BP 149/59
--- NOTE | 2020-02-25 20:34 | NUR ---
PAGED DR. TSANG, SALES OPERATIONS MANAGER FOR DR JOSHUA HOFFMANN . CALLED BACK AND MADE AWARE ABOUT PT FOR HD M-F. SHE SAID TO CALL CLINIC TO PUT ORDER. BUT I TOLD HER THAT I ALREADY TALKED TO VANESSA AND SHE ALREADY AWARE .
[2020-02-25] MEDS: hydrALAZINE 10 MG TAB PO SCH (21:05)
--- NOTE | 2020-02-25 21:30 | NUR ---
BLOOD SUGAR WAS CHECKED RESULT 388. PAGED DR. KEITH FOR ORDERS.
[2020-02-25] MEDS ORDERED: DEXTROSE 50% 50 ML SYR IVP PRN (22:00)
--- NOTE | 2020-02-25 22:04 | NUR ---
DR. KEITH CALLED BACK WITH ORDERS TO CONTINUE WITH IVF AND TO ORDER ACCU CHECK AC AND HS WITH SLIDING SCALE .
[2020-02-25] MEDS: INSULIN LISPRO SLIDING SCALE 100 UNITS/ML VIAL SUBQ PRN (22:11)
--- NOTE | 2020-02-25 22:11 | NUR ---
IVF INFUSION CONTINUE PER MD. THEN HUMALOG 10 UNITS SUBQ GIVEN COVERAGE FOR BS 388. WILL CONTINUE TO MONITOR.
[2020-02-26] VITALS: BP 153/64
--- NOTE | 2020-02-26 00:30 | NUR ---
MADE ROUNDS. PT IS ASLEEP. NO S/S OF ANY DISCOMFORT NOTED. WILL CONTNUE TO MONITOR.
[2020-02-26] MEDS: CLONIDINE HYDROCHLORIDE 0.1 MG TAB PO SCH ×4 (01:28→18:38)
--- NOTE | 2020-02-26 02:15 | NUR ---
MADE ROUNDS. REPOSITONED FOR COMFORT. NO CO ANY PAIN AND NO NAUSEA /VOMITING NOTED.
[2020-02-26 03:56] VITALS: BP 121/48
--- NOTE | 2020-02-26 04:00 | NUR ---
MADE ROUNDS. VITAL SIGNS STABLE BP 121/48. AFEBRILENO C/O ANY PAIN . WILL CONTINUE TO MONITOR.
[2020-02-26] MEDS: hydrALAZINE 10 MG TAB PO SCH ×4 (05:00→21:00)
[2020-02-26 05:36] LABS: BASOPHILS % (AUTO) 0.6 % (0.0-2.0); EOSINOPHILS # (AUTO) 0.3 K/uL (0-0.4); EOSINOPHILS % (AUTO) 4.6 % (0.0-4.0); HEMOGLOBIN 11.5 g/dL (12.0-16.0); LYMPHOCYTES # (AUTO) 1.8 K/uL (2.5-16.5); LYMPHOCYTES % (AUTO) 27.2 % (20.5-51.1); MEAN CORPUSCULAR HEMOGLOBIN 33 pg (27-31); MEAN CORPUSCULAR HGB CONC 33 g/dL (33-37); MEAN CORPUSCULAR VOLUME 99.9 fL (80-94); MONOCYTES # (AUTO) 0.6 K/uL (0.8-1.0); MONOCYTES % (AUTO) 8.5 % (1.7-9.3); NEUTROPHILS % (AUTO) 59.1 % (42.2-75.2); PLATELET COUNT (AUTO) 211 K/uL (140-450); RED CELL DISTRIBUTION WIDTH 15.5 % (11.6-13.7); WHITE BLOOD COUNT (AUTO) 6.8 K/uL (4.8-10.8)
[2020-02-26 05:44] LABS: ANION GAP 15.1 (8-16); CARBON DIOXIDE 24.5 mmol/L (21-32); CHLORIDE 103 mmol/L (98-107); GLUCOSE 214 mg/dL (74-106); POTASSIUM 4.6 mmol/L (3.5-5.1); SODIUM SERUM 138 mmol/L (136-145)
[2020-02-26 06:00] LABS: UREA NITROGEN, BLOOD 66 mg/dL (7-18)
[2020-02-26 06:01] LABS: CREATININE 4.4 mg/dL (0.6-1.3)
[2020-02-26] MEDS: BLOOD GLUCOSE MONITORING 1 DEV DEV FS SCH ×4 (06:06→20:49)
[2020-02-26] MEDS: INSULIN LISPRO SLIDING SCALE 100 UNITS/ML VIAL SUBQ PRN ×3 (06:07→20:49)
--- NOTE | 2020-02-26 06:07 | NUR ---
BLOOD SUGAR WAS CHECKED REULST 175. COVERAGE GIVEN SUBQ. IVF INFUSING.
[2020-02-26] MEDS: LEVOTHYROXINE 0.05 MG TAB PO SCH (06:13)
--- NOTE | 2020-02-26 07:30 | NUR ---
ENDORSED PT IN STABLE CONDITION TO AM NURSE.
--- NOTE | 2020-02-26 07:32 | NUR ---
RECEIVED REPORT FROM NIGHT NURSE PATIENT IS SLEEPING, ON ROOM AIR, BEDREST AND NPO, IV SITES INTACT AND PATENT ON RIGHT AC, WITH RIGHT CHEST IJ SRIRAM CATH, AND LEFT ARM AV SHUNT, SKIN NON INTACT WITH LEFT HEEL SCAB PICTURES TAKEN. PATIENT FOR HEMODIALYSIS TODAY, OCCULT BLOOD AND DRUG SCREEN UNABLE TO COLLECT. SAFETY MEASURES IN PLACE AND CALL LIGHT WITHIN REACH WILL CONTINUE TO MONITOR.
[2020-02-26 08:00] VITALS: BP 101/52
[2020-02-26] MEDS: PANTOPRAZOLE 40 MG TABEC PO SCH (09:00)
[2020-02-26] MEDS: amLODIPine 5 MG TAB PO SCH (09:00)
[2020-02-26] MEDS: PARoxetine 20 MG TAB PO SCH (09:00)
[2020-02-26] MEDS: ATORVASTATIN 20 MG TAB PO SCH (09:00)
[2020-02-26] MEDS: DEXTROSE 5% 1,000 ML IV SCH (09:10)
--- NOTE | 2020-02-26 09:12 | NUR ---
MEDICATION DUE NOT GIVEN PATIENT IS NPO AND FOR HEMODIALYSIS TODAY. NO DISTRESS NOTED.
--- NOTE | 2020-02-26 09:30 | NUR ---
HEMODIALYSIS STARTED AT THIS TIME VITAL SIGNS TAKEN PRIOR TO DIALYSIS BP 119/42 IN 64 AND OXYGEN SATURATION AT 98%. NO DISTRESS NOTED PAT IS STABLE.
--- NOTE | 2020-02-26 10:35 | NUR ---
SOCIAL WORK NOTE: Patient's Orientation Unable To Assess Information Provided By SAGE RICO Comments TONNY WAS UNABLE TO MEET PATIENT AT BEDSIDE TO COMPLETE ASSESSMENT. TONNY LEFT PATIENT'S POA ROBERTH LARKIN A VM TO COMPLETE ASSESSMENT. TONNY CONTACTED JUANI RICO TO RECEIVE INFORMATION. Manager Telecom, Realtionship and Phone Number ROBERTH MACHUCA [phone] SANDIP QUAN MOTHER [phone] Healthcare Power of Body Piercer No Does Patient Have a POLST No Identifying Problems No Social Work Triggers Is A Social Work Consult Needed No Mandate Report Filed No Explanation Of Identifying Problems PATIENT IS A 69-YEAR-OLD FEMALE ADMITTED FOR GI BLEED. PATIENT HAS PMHX OF DIABETES, GERD, HYPERTENSION, RENAL DISEASE, AND HYPOTHYROIDISM. Admitted From [facility] Correction Facility [facility] [phone] Pre-Admission Level Of Functioning Status Total Care Prior Resources/Services Used In Last 12 Months SNF Fdc Care Prior Resources/Service Comments PATIENT IS CARE HOME AND ON A BED HOLD. Prior DME Wheelchair Dialysis Hemodialysis Name And Phone Number of Dialysis Facility [facility] Outpatient Days M/F ESRD Outpatient Time 1400 Patient Had Caregiver No Home Support No Caregiver Issues Financial Issues No Known Financial Issue Referral To The Financial Counselor Needed No Factors/Needs SNF/NH Placement Discharge Plan Comments TENTATIVE DISCHARGE PLAN IS FOR PATIENT TO RETURN TO [facility] Plan Status Initiated
--- NOTE | 2020-02-26 11:07 | NUR ---
DISCHARGE PLANNING: THIS IS A 69 Y/O FEMALE PATIENT FROM [facility], WHO WAS BIBA DUE TO NAUSEA, VOMITING COFFEE GROUND SUBSTANCE. PAST MEDICAL HISTORY INCLUDE DIABETES, DEMENTIA, GERD, HTN, RENAL DISEASE AND HYPOTHYROIDISM. INITIAL DIAGNOSIS OF GI BLEED. CURRENT LABS INCLUDE WBC 6.8, H/H 11.5/35.0, NA/K 138/4.6, BUN/CREA 66/4.4. COVID NEGATIVE. GI, NEPHRO AND CARDIO CONSULTS IN PLACE. DC PLAN PENDING ON PATIENT'S RESPONSE TO TREATMENT. Addendum: 02/29/20 at 0944 by Orly Alvarez CM DC IN FLIGHT TECHNICIAN: FAXED PATIENT CLINICALS TO [facility]. SPOKE TO FINESSE PATIENT CAN GO TO ROOM 15. WAITING ON TRANSPORTATION AUTH FROM [facility] Addendum: 02/29/20 at 1059 by Orly Alvarez CM DC IN FLIGHT TECHNICIAN: PER SAGE THEY WILL PAY FOR TRANSPORTATION. TRANSPORTATION SET UP WITH [employer] FOR 3:00 PM NOTIFIED GAIL CASTILLO AND FINESSE AT [facility]. Addendum: 02/29/20 at 1108 by Orly Alvarez DC IN FLIGHT TECHNICIAN: DISCUSSED RIGHTS OF MEDICARE WITH PATIENTS PERSON TO NOTIFY ROBERTH CASEY [phone]. IM LETTER DOCUMENTED AND COPY PLACED IN CHART
--- NOTE | 2020-02-26 11:45 | NUR ---
BLOOD SUGAR MONITORING DONE AT [facility] OF 164 MG/DL INSULIN COVERAGE GIVEN AND RECEIVED CRITICAL LEVEL OF TROPONIN 0.140. INFORMED DR KEITH NO ORDERS GIVEN.
[2020-02-26 12:00] VITALS: BP 130/36
[2020-02-26] MEDS ORDERED: METOCLOPRAMIDE 10 MG/2 ML INJ VIAL IVP PRN (13:45)
--- NOTE | 2020-02-26 13:46 | NUR ---
DR AMBROSE CHECKED AND ASSESSMENT DONE ON THE PATIENT AND ORDERED TO DO AN XRAY OF THE ABDOMEN(KUB) AND US ABDOMEN. CHANGED DIET FROM NPO TO CCHO 60GRAMS.
--- NOTE | 2020-02-26 13:55 | NUR ---
HEMODIALYSIS COMPLETED WITH AN OPUTPUT OF 2.3 LITERS AND VITAL SIGNS BP 130/36 AZ 98 TEMP 97 AND OXYGEN SATURATION 96.
--- NOTE | 2020-02-26 14:51 | NUR ---
PATIENT HAS BEEN SCREENED AND CATEGORIZED MODERATE NUTRITION RISK. PATIENT WILL BE SEEN WITHIN 3-5 DAYS OF ADMISSION. 02/28/20 03/01/[address]
--- NOTE | 2020-02-26 15:30 | NUR ---
US ABDOMEN COMPLETED AND PATIENT ABLE TO EAT
[2020-02-26 16:00] VITALS: BP 125/66
[2020-02-26] MEDS: SENNA 8.6 MG TAB PO SCH (16:27)
--- NOTE | 2020-02-26 16:30 | NUR ---
BLOOD SUGAR LEVEL AT 104 MG/DL NO INSULIN COVERAGE, MEDICATIONS DUE GIVEN.
--- NOTE | 2020-02-26 18:40 | NUR ---
BP MEDICATIONS GIVEN AND CHECK VITAL SIGNS PRIOR TO MEDICATIONS. BP 145/56 SD 92 PATIENT IS STABLE
--- NOTE | 2020-02-26 18:50 | NUR ---
PATIENTS IV SITE OUT AND PATIENT COMPLAINS OF PAIN.
--- NOTE | 2020-02-26 19:30 | NUR ---
ENDORSED TO NIGHT NURSE FOR CONTINUITY OF CARE. PT IS STABLE.
--- NOTE | 2020-02-26 19:31 | NUR ---
RECEIVED BEDSIDE ENDORSEMENT FROM AM SHIFT RN. PATIENT IS IN BED, FOWLERS POSITION, ON ROOM AIR, O2 SAT WNL, NOTED LEFT HEEL SCAB, IV SITE WAS DISLODGED AT 1900 PER ENDORSED, WILL RE-INSERT, WITH RETA AV SHUNT, WITH BRUIT AND THRILL, RT Marcus BHATIA CATH FOR HD THAT WAS DONE TODAY WITH OUTPUT OF 2.3 L. HD EVERY MON AND FRI. FALL PROTOCOL IN PLACE, SAFETY MEASURES IN PLACE, PLAN OF CARE DISCUSSED, CALL LIGHT WITHIN REACH.
[2020-02-26 20:00] VITALS: BP 105/43
--- NOTE | 2020-02-26 21:02 | NUR ---
PATIENT IS WATCHING TV, DUE MEDS GIVEN ORDERED, TOLERATED WELL.
--- NOTE | 2020-02-26 21:45 | NUR ---
INFORMED DR. KEITH THAT PATIENT REFUSED IV RE-INSERTION X3, EDUCATED ABOUT THE RISKS AND BENEFITS, STILL PATIENT REFUSED, TOLD PATIENT TO LET ME KNOW IF SHE CHANGE HER MIND, VERBALIZED UNDERSTANDING. WILL TRY TO ASK PATIENT AGAIN LATER. WILL MONITOR. CALL LIGHT WITHIN REACH.
[2020-02-27] VITALS: BP 123/76
[2020-02-27] MEDS: CLONIDINE HYDROCHLORIDE 0.1 MG TAB PO SCH ×4 (00:28→18:00)
--- NOTE | 2020-02-27 00:32 | NUR ---
DUE MEDS GIVEN ORDERED, NO DISTRESS. NO SOB. CALL LIGHT WITHIN REACH.
[2020-02-27] MEDS: DEXTROSE 5% 1,000 ML IV SCH (00:33)
--- NOTE | 2020-02-27 02:00 | NUR ---
RECHECKED BP 95/57. HR 81. PATIENT IS SLEEPING, NO DISTRESS. WILL MONITOR, CALL LIGHT WITHIN REACH.
[2020-02-27 04:00] VITALS: BP 103/53
--- NOTE | 2020-02-27 04:00 | NUR ---
REPOSITIONED, KEPT CLEAN, DRY AND COMFORTABLE.
[2020-02-27] MEDS: hydrALAZINE 10 MG TAB PO SCH ×3 (04:48→21:09)
[2020-02-27] MEDS: LEVOTHYROXINE 0.05 MG TAB PO SCH ×2 (05:40→06:41)
[2020-02-27] MEDS: BLOOD GLUCOSE MONITORING 1 DEV DEV FS SCH ×4 (06:41→20:58)
[2020-02-27] MEDS: INSULIN LISPRO SLIDING SCALE 100 UNITS/ML VIAL SUBQ PRN ×4 (06:45→21:08)
--- NOTE | 2020-02-27 06:46 | NUR ---
CATAPRES NOT GIVEN DUE TO BP OF 96/45 HR 70. PATIENT IS STILL SLEEPY, NO SOB, NO DISTRESS, CALL LIGHT WITHIN REACH.
--- NOTE | 2020-02-27 07:10 | NUR ---
RED'D REPORT FROM ALBERTO, [facility], PT RESTING IN BED,
[2020-02-27 07:20] LABS: BASOPHILS # (AUTO) 0.1 K/uL (0.00-0.22); BASOPHILS % (AUTO) 1.1 % (0.0-2.0); EOSINOPHILS # (AUTO) 0.4 K/uL (0-0.4); EOSINOPHILS % (AUTO) 6.9 % (0.0-4.0); HEMATOCRIT 35.7 % (36-48); HEMOGLOBIN 11.6 g/dL (12.0-16.0); LYMPHOCYTES # (AUTO) 1.9 K/uL (2.5-16.5); LYMPHOCYTES % (AUTO) 33.6 % (20.5-51.1); MEAN CORPUSCULAR HEMOGLOBIN 33 pg (27-31); MEAN CORPUSCULAR HGB CONC 32 g/dL (33-37); MEAN CORPUSCULAR VOLUME 100.4 fL (80-94); MONOCYTES # (AUTO) 0.5 K/uL (0.8-1.0); MONOCYTES % (AUTO) 8.4 % (1.7-9.3); NEUTROPHILS # (AUTO) 2.8 K/uL (1.8-7.7); PLATELET COUNT (AUTO) 189 K/uL (140-450); RED BLOOD CELL COUNT(AUTO) 3.56 MIL/uL (4.20-5.40); RED CELL DISTRIBUTION WIDTH 15.2 % (11.6-13.7); WHITE BLOOD COUNT (AUTO) 5.5 K/uL (4.8-10.8)
[2020-02-27 07:21] LABS: ANION GAP 14.7 (8-16); CHLORIDE 103 mmol/L (98-107); CREATININE 3.3 mg/dL (0.6-1.3); GLUCOSE 270 mg/dL (74-106); POTASSIUM 4.7 mmol/L (3.5-5.1); SODIUM SERUM 137 mmol/L (136-145); UREA NITROGEN, BLOOD 35 mg/dL (7-18)
--- NOTE | 2020-02-27 07:24 | NUR ---
PATIENT IS IN STABLE CONDITION. BEDSIDE ENDORSEMENT GIVEN TO AM SHIFT RN FOR CONTINUITY OF CARE. ALSO, ENDORSED THAT PATIENT REFUSED IV RE-INSERTION AND REFUSED BLOOD DRAW.
[2020-02-27 08:00] VITALS: BP 104/46
[2020-02-27] MEDS ORDERED: CRUSHER, PILL MC ONE (08:23)
[2020-02-27] MEDS: amLODIPine 5 MG TAB PO SCH (08:25)
[2020-02-27] MEDS: ATORVASTATIN 20 MG TAB PO SCH (08:26)
[2020-02-27] MEDS: PANTOPRAZOLE 40 MG TABEC PO SCH (08:27)
[2020-02-27] MEDS: PARoxetine 20 MG TAB PO SCH (08:27)
[2020-02-27] MEDS: SENNA 8.6 MG TAB PO SCH ×3 (08:28→18:08)
--- NOTE | 2020-02-27 08:28 | NUR ---
ADMINISTERED MEDICATIONS, DID NOT ADMINISTER NORVASC 5MG D/T LOW BLOOD PRESSURE OF 104/46
--- NOTE | 2020-02-27 10:00 | NUR ---
pt sleeping in bed. no s/s of respiratory distress or discomfort noted at this time. will continue to monitor.
--- NOTE | 2020-02-27 11:35 | NUR ---
CHECKED FINGER GLUCOSE LEVEL. RESULTS= 304
[2020-02-27 12:04] VITALS: BP 108/57
[2020-02-27] MEDS: NACL 0.9% 1,000 ML IV SCH (12:50)
--- NOTE | 2020-02-27 13:30 | NUR ---
PT SLEEPING IN BED. CALL LIGHT WITHIN REACH. NO S/S OF RESPIRATORY DISTRESS OR DISCOMFORT NOTED AT THIS TIME. WILL CONTINUE TO MONITOR.
--- NOTE | 2020-02-27 15:10 | NUR ---
CHECKED FINGER GLUCOSE: CURRENTLY 230. REMOVED HEART MONITOR PER ORDER Addendum: 02/27/20 at 1718 by Callie Means RN RN CORRECT TIME:171
--- NOTE | 2020-02-27 15:44 | NUR ---
PT SLEEPING COMFORTABLY.
[2020-02-27 16:00] VITALS: BP 158/63
--- NOTE | 2020-02-27 16:11 | NUR ---
GAVE INSULIN COVERAGE OF 4 UNITS, ADMINISTERED SENOKOT PER ORDER. ASSESSED BLOOD PRESSURE WHICH READ 124/67, HR 72. WITHHELD CATAPRES D/T CONTRAINDICATION FOR BLOOD PRESSURE DECREASING. PT RESTING COMFORTABLY Addendum: 02/27/20 at 1845 by Callie Means RN RN CORRECT TIME 2784
[2020-02-27 19:07] LABS: T4 (THYROXINE) 7.4 ug/dL (4.5 - 12.0)
--- NOTE | 2020-02-27 19:29 | NUR ---
ENDORSED PT TO ALBERTO. PT STABLE.
--- NOTE | 2020-02-27 19:30 | NUR ---
RECIEVED BEDSIDE ENDORSEMENT FROM DAY SHIFT RN, PT AWAKE AND EATING, A&0X3, PT ON ROOMAIR, AVELINO POWELL CATH, RETA AV SHUNT, PT HAS SUPERFIICAL WOUND ON LEFT HEEL, PT SHOWING NO SIGNS OF ACUTE DISTRESS, SAFETY MEASURES IN PLACE, CALL LIGHT WITHIN REACH, WILL CONTINUE WITH CURRENT POC AND MONITORING
[2020-02-27 20:00] VITALS: BP 141/62
--- NOTE | 2020-02-27 21:13 | NUR ---
PATIENT IS WATCHING TV. DUE MEDS GIVEN ORDERED, TOLERATED WELL, NO SOB. CALL LIGHT WITHIN REACH.
--- NOTE | 2020-02-27 22:30 | NUR ---
PT TALKIN ON THE PHONE, SHOWING SIGNS OF ACUTE DISTRESS, SAFETY MEASURES IN PLACE, CALL LIGHT WITHIN REACH.
[2020-02-28] VITALS: BP 148/86
--- NOTE | 2020-02-28 | NUR ---
PT RESTING, WATCHING TV, PT SHOWING NO SIGNS OF ACUTE DISTRESS, SAFETY MEASURES IN PLACE, CALL LIGHT WITHIN REACH, WILL CONTINUE TO MONITOR
[2020-02-28] MEDS: CLONIDINE HYDROCHLORIDE 0.1 MG TAB PO SCH ×5 (01:19→18:16)
--- NOTE | 2020-02-28 02:30 | NUR ---
PT ASLEEP, SAFETY MEASURES IN PLACE, CALL LIGHT WITHIN REACH, WILL CONTINUE TO MONITOR
[2020-02-28 04:00] VITALS: BP 165/71
--- NOTE | 2020-02-28 05:30 | NUR ---
PT RESTING, ADMINISTERED MEDICATIONS PER ORDERED, PT SHOWING NO SIGNS OF ACUTE DISTRESS, SAFETY MEASURE SIN PLACE, CALL LIGHT WITHIN REACH, WILL CONTINUE TO MONITOR
[2020-02-28] MEDS: hydrALAZINE 10 MG TAB PO SCH ×3 (05:45→20:26)
[2020-02-28] MEDS: LEVOTHYROXINE 0.05 MG TAB PO SCH (05:46)
[2020-02-28 06:00] LABS: BASOPHILS # (AUTO) 0.1 K/uL (0.00-0.22); EOSINOPHILS # (AUTO) 0.3 K/uL (0-0.4); EOSINOPHILS % (AUTO) 5.1 % (0.0-4.0); HEMATOCRIT 38.7 % (36-48); HEMOGLOBIN 12.5 g/dL (12.0-16.0); LYMPHOCYTES # (AUTO) 1.8 K/uL (2.5-16.5); LYMPHOCYTES % (AUTO) 27.2 % (20.5-51.1); MEAN CORPUSCULAR HEMOGLOBIN 33 pg (27-31); MEAN CORPUSCULAR HGB CONC 33 g/dL (33-37); MEAN CORPUSCULAR VOLUME 101.9 fL (80-94); MONOCYTES # (AUTO) 0.5 K/uL (0.8-1.0); NEUTROPHILS # (AUTO) 3.9 K/uL (1.8-7.7); NEUTROPHILS % (AUTO) 58.7 % (42.2-75.2); PLATELET COUNT (AUTO) 174 K/uL (140-450); RED BLOOD CELL COUNT(AUTO) 3.79 MIL/uL (4.20-5.40); RED CELL DISTRIBUTION WIDTH 15.4 % (11.6-13.7); WHITE BLOOD COUNT (AUTO) 6.6 K/uL (4.8-10.8)
[2020-02-28 06:06] LABS: ANION GAP 20.6 (8-16); CARBON DIOXIDE 18.1 mmol/L (21-32); CHLORIDE 100 mmol/L (98-107); CREATININE 3.6 mg/dL (0.6-1.3); GLUCOSE 336 mg/dL (74-106); POTASSIUM 4.7 mmol/L (3.5-5.1); SODIUM SERUM 134 mmol/L (136-145); UREA NITROGEN, BLOOD 44 mg/dL (7-18)
[2020-02-28] MEDS: BLOOD GLUCOSE MONITORING 1 DEV DEV FS SCH ×4 (06:32→20:08)
[2020-02-28] MEDS: INSULIN LISPRO SLIDING SCALE 100 UNITS/ML VIAL SUBQ PRN ×4 (06:33→20:22)
--- NOTE | 2020-02-28 06:36 | NUR ---
PT BLOOD GLUCOSE 363, 10 UNITS OF HUMALOG ADMINISTERED PER PROTOCOL
--- NOTE | 2020-02-28 07:00 | NUR ---
PATIENT IN STABLE CONDITION. NO DISTRESS NOTED.
--- NOTE | 2020-02-28 07:05 | NUR ---
REC'D BEDSIDE ENDORSEMENT FROM NIGHTSHIFT NURSE. PATIENT IS RESTING IN BED. RESPIRATIONS EVEN AND UNLABORED. SKIN IS WARM AND DRY TO TOUCH. PATIENT IS ABLE TO MAKE NEEDS KNOWN. WILL CONT W/ POC PROVIDED. SAFETY MEASURES IN PLACE.
[2020-02-28 08:00] VITALS: BP 109/64
[2020-02-28 08:07] LABS: FOLIC ACID > 20.00 ng/mL (>3.0)
[2020-02-28] MEDS: SENNA 8.6 MG TAB PO SCH ×3 (09:48→21:00)
[2020-02-28] MEDS: ATORVASTATIN 20 MG TAB PO SCH (09:49)
[2020-02-28] MEDS: PARoxetine 20 MG TAB PO SCH (09:49)
[2020-02-28] MEDS: PANTOPRAZOLE 40 MG TABEC PO SCH (09:49)
[2020-02-28] MEDS: amLODIPine 5 MG TAB PO SCH (09:50)
--- NOTE | 2020-02-28 09:58 | NUR ---
ADMINISTERED PRESCRIBED MEDS PER MD ORDER. PATIENT TOLERATED MEDS WELL. MEDICATION EDUCATION PROVIDED. PATIENT VERBALIZED UNDERSTANDING. SAFETY MEASURES IN PLACE. WILL CONT TO MONITOR.
--- NOTE | 2020-02-28 11:30 | NUR ---
PT BLOOD SUGAR IS 330. PRN INSULIN WILL BE ADMINISTERED WITH NEXT MEAL. SAFETY MEASURES IN PLACE WILL CONTINUE TO MONITOR
[2020-02-28] MEDS: NACL 0.9% 1,000 ML IV SCH (11:55)
[2020-02-28 12:00] VITALS: BP 99/76
--- NOTE | 2020-02-28 12:49 | NUR ---
ADMINISTERED SCHED MED PRESCRIBED PER MD ORDER. PT TOLERATED WELL. MEDICATION EDUCATION PERFORMED. PT VERBALIZED UNDERSTANDING. SAFETY MEASURES IN PLACE. WILL CONTINUE TO MONITOR
--- NOTE | 2020-02-28 14:00 | NUR ---
DRESSING CHANGE PROVIDED ON L HEEL. CLEANED AREA W/ NORMAL SALINE, PAT DRY AND APPLIED FOAM DRESSING. NO DRAINAGE PRESENT. OPEN WOUND IS PINK IN COLOR. PATIENT TOLERATED TX WELL. SAFETY MEASURES IN PLACE. WILL CONT TO MONITOR.
--- NOTE | 2020-02-28 14:26 | NUR ---
PATIENT DISCHARGED, PICKED UP BY SECURED TRANSPORT AND REPORT GIVEN TO TRANSPORT. TRANSPORT TEAM VERIFIED UNDERSTANDING. LFA INTACT IV, ID BAND AND ALLERGY BAND REMOVED. DRESSING CHANGE PERFORMED FOR BLISTER ON LEFT ARM. RIGHT ARM HAS CLOSED SCABS LILIA. GATHERED PATIENT BELONGINGS. PATIENT CHANGED INTO HER OWN CLOTHES. MASK PROVIDED TO PATIENT. PATIENT STABLE TO GO TO [facility] ROOM 46C. Addendum: 02/28/20 at 1434 by Sandy Thapa RN RN INCORRECT DOCUMENTATION FOR THIS PATIENT. PATIENT IS NOT DISCHARGED. POC CARE TO BE CONTINUED ON PATIENT.
--- NOTE | 2020-02-28 15:18 | NUR ---
HOURLY ROUNDING. PT RESTING IN BED. ABLE TO MAKE NEEDS KNOWN. RESPIRATIONS EVEN AND UNLABORED WITH NO SOB OR RESPIRATORY DISTRESS. SKIN WARM AND DRY TO TOUCH. SAFETY MEASURES IN PLACE. WILL CONTINUE TO MONITOR
[2020-02-28 16:00] VITALS: BP 120/61
--- NOTE | 2020-02-28 16:30 | NUR ---
PT BLOOD SUGAR IS 249. PRN INSULIN WITH NEXT MEAL. SAFETY MEASURES IN PLACE. WILL CONTINUE TO MONITOR
--- NOTE | 2020-02-28 17:00 | NUR ---
HOURLY ROUNDING. PT RESTING IN BED. ABLE TO MAKE SOME NEEDS KNOWN. RESPIRATIONS EVEN AND UNLABORED WITH NO SOB OR RESPIRATORY DISTRESS. SKIN WARM AND DRY TO TOUCH. SAFETY MEASURES IN PLACE. WILL CONTINUE TO MONITOR
--- NOTE | 2020-02-28 18:16 | NUR ---
ADMINISTERED PRESCRIBED MED PER MD ORDER. PATIENT TOLERATED WELL. MEDICATION EDUCATION PROVIDED. PATIENT VERBALIZED UNDERSTANDING. PATIENT REC'D DINNER, SAT HEAD UPRIGHT FOR PATIENT TO EAT DINNER. SAFETY MEASURES IN PLACE. WILL CONT TO MONITOR.
--- NOTE | 2020-02-28 19:15 | NUR ---
BEDSIDE ENDORSEMENT TO NIGHTSHIFT NURSE. PATIENT IN BED WATCHING TV. PATIENT IS STABLE W/ NO SIGNS OF DISTRESS.
--- NOTE | 2020-02-28 19:16 | NUR ---
RECEIVED REPORT FROM BO RNLORENA. PT AOX3 IN BED ON ROOM AIR. RESPIRATIONS EVEN AND UNLABORED. NO C/O PAIN AT THIS TIME. HAS RIGHT IJ SRIRAM CATH. RETA AV SHUNT. PT REFUSING IVF. HAS LEFT HEEL OPEN WOUND SAFETY MEASURES IN PLACE. CALL LIGHT WITHIN REACH. WILL CONTINUE TO MONITOR.
--- NOTE | 2020-02-28 20:30 | NUR ---
ADMINISTERED SCHEDULED MEDS. GAVE 6 UNITS INSULIN FOR BLOOD SUGAR 290 PER SLIDING SCALE. PT TOLERATED WELL. PT REFUSED SENOKOT. WILL CONTINUE TO MONITOR
--- NOTE | 2020-02-28 22:45 | NUR ---
PT ASLEEP IN BED. NO DISTRESS NOTED. WILL CONTINUE TO MONITOR
[2020-02-29] VITALS: BP 152/67
[2020-02-29] MEDS: CLONIDINE HYDROCHLORIDE 0.1 MG TAB PO SCH ×3 (00:57→12:00)
--- NOTE | 2020-02-29 01:30 | NUR ---
PT ASLEEP IN BED. RESPIRATIONS EVEN AND UNLABORED. WILL CONTINUE TO MONITOR
[2020-02-29 04:00] VITALS: BP 107/53
--- NOTE | 2020-02-29 04:50 | NUR ---
PT ASLEEP IN BED. NO DISTRESS NOTED. WILL CONTINUE TO MONITOR
[2020-02-29] MEDS: hydrALAZINE 10 MG TAB PO SCH ×2 (05:00→13:00)
[2020-02-29] MEDS: BLOOD GLUCOSE MONITORING 1 DEV DEV FS SCH ×2 (06:04→12:27)
[2020-02-29] MEDS: LEVOTHYROXINE 0.05 MG TAB PO SCH (06:13)
[2020-02-29] MEDS: INSULIN LISPRO SLIDING SCALE 100 UNITS/ML VIAL SUBQ PRN ×2 (06:19→12:43)
--- NOTE | 2020-02-29 07:30 | NUR ---
ENDORSED PT TO DAY RN FOR CONTINUITY OF CARE. PT IS IN STABLE CONDITION
--- NOTE | 2020-02-29 07:31 | NUR ---
RECEIVED REPORT FROM ICE DELIVERY DRIVER NURSE TRISTON FOR CONTINUITY OF CARE. PATIENT IN STABLE CONDITION. RESPIRATIONS EVEN AND UNLABORED, ROOM AIR. RIGHT IJ SRIRAM CATH INTACT. SAFETY MEASURES IN PLACE. BED IN LOW POSITION. CALL LIGHT WITHIN REACH. BED ALARM ON. WILL CONTINUE TO MONITOR.
[2020-02-29] MEDS ORDERED: PANT40EC56 PO (07:50)
[2020-02-29] MEDS ORDERED: SENN-74 PO (07:50)
[2020-02-29] MEDS ORDERED: METO-485 PO (07:50)
[2020-02-29 08:00] VITALS: BP 107/56
[2020-02-29] MEDS: ATORVASTATIN 20 MG TAB PO SCH (09:08)
[2020-02-29] MEDS: PARoxetine 20 MG TAB PO SCH (09:09)
[2020-02-29] MEDS: PANTOPRAZOLE 40 MG TABEC PO SCH (09:09)
[2020-02-29] MEDS: amLODIPine 5 MG TAB PO SCH (09:09)
--- NOTE | 2020-02-29 09:26 | NUR ---
DIALYSIS AT BEDSIDE AT THIS TIME. PATIENT IN STABLE CONDITION.
[2020-02-29] MEDS ORDERED: ALBUMIN HUMAN 25% 200 ML IV ONE (10:34)
[2020-02-29] MEDS: NACL 0.9% 1,000 ML IV SCH (12:50)
--- NOTE | 2020-02-29 12:50 | NUR ---
DIALYSIS COMPLETE AT THIS TIME. PATIENT TOLERATED WELL. BED IN LOW POSITION. BED ALARM ON. CALL LIGHT WITHIN REACH. WILL CONTINUE TO MONITOR.
--- NOTE | 2020-02-29 14:00 | NUR ---
GAVE REPORT TO [place]E STAFF NURSE AT [facility] FOR CONTINUITY OF CARE. ALL QUESTIONS ANSWERED AT THIS TIME.
--- NOTE | 2020-02-29 15:15 | NUR ---
GAVE DISCHARGE INSTRUCTIONS TO PATIENT AT THIS TIME. PATIENT VERBALIZED UNDERSTANDING. ID BAND REMOVED. PATIENT PLACED ON GURNEY IN STABLE CONDITION.
== END 2020-02-29 15:20 | DRG 73 ==
LOC: MED 13:02 → MTU 15:38
PROVIDERS: ADMIT Family Medicine; ATTEND Family Medicine
PROC: 5A1D70Z Performance of Urinary Filtration, Intermittent, Less than 6 Hours Per Day (ICD-10-PCS; principal; 2020-02-26)
PROC: 5A1D70Z Performance of Urinary Filtration, Intermittent, Less than 6 Hours Per Day (ICD-10-PCS; 2020-02-29)
DX: E10.43 Type 1 diabetes mellitus with diabetic autonomic (poly)neuropathy (principal); I50.43 Acute on chronic combined systolic (congestive) and diastolic (congestive) heart failure; N17.0 Acute kidney failure with tubular necrosis; N18.6 End stage renal disease; I13.2 Hypertensive heart and chronic kidney disease with heart failure and with stage 5 chronic kidney disease, or end stage renal disease; K92.0 Hematemesis; E44.1 Mild protein-calorie malnutrition; N13.2 Hydronephrosis with renal and ureteral calculous obstruction; E87.1 Hypo-osmolality and hyponatremia; I24.8 Other forms of acute ischemic heart disease; E66.9 Obesity, unspecified; Z20.828 Contact with and (suspected) exposure to other viral communicable diseases; E03.9 Hypothyroidism, unspecified; K21.9 Gastro-esophageal reflux disease without esophagitis; K31.84 Gastroparesis; D63.1 Anemia in chronic kidney disease; K59.00 Constipation, unspecified; F03.90 Unspecified dementia, unspecified severity, without behavioral disturbance, psychotic disturbance, mood disturbance, and anxiety; E10.22 Type 1 diabetes mellitus with diabetic chronic kidney disease; E10.65 Type 1 diabetes mellitus with hyperglycemia; Z71.3 Dietary counseling and surveillance; Z68.32 Body mass index [BMI] 32.0-32.9, adult; Z99.2 Dependence on renal dialysis; Z88.8 Allergy status to other drugs, medicaments and biological substances; Z79.899 Other long term (current) drug therapy; Z79.4 Long term (current) use of insulin; Z90.49 Acquired absence of other specified parts of digestive tract; Z80.9 Family history of malignant neoplasm, unspecified; Z83.3 Family history of diabetes mellitus; Z82.49 Family history of ischemic heart disease and other diseases of the circulatory system; Z74.01 Bed confinement status
CPT/HCPCS: 36415; 70450; 71045; 74018; 76705; 80048; 80053; 82150; 82272; 82607; 82746; 82948; 83036; 83690; 83735; 83880; 84100; 84436; 84439; 84443; 84479; 84484; 85025; 85610; 85730; 86886; 86900; 86901; 87081; 93005; 96361; 96374; 97110; 97116; 97161-GP; 99285; J1644; J2405; J2765; J7030; J7042; J7060; P9046; Q0092

== ENCOUNTER 2022-01-27 07:52 | Emergency (ER) | payer OTHER ==
[~2022-01-27] VITALS: Ht 165.1 cm; Wt 61.2 kg
[~2022-01-27 07:52] MED LIST changes: +ACET-9800 PO; -ACET-9882 PO; -ACET1TAB93 PO; +ASCO500T95 PO; +ATOR40TA PO; -CALC667C12 PO; -CEFT1SOL1 IV; +CEFT1VIA7 IV; +CHOL20004 PO; -D50SYR IVP; -FAMO-90 PO; +GABA100C PO; -GLUC1VIA IVP; -LACT10CA1 PO; +METO-485 PO; +PANT40EC56 PO; +SENN-74 PO; +SEVE800T6 PO; +SYN.05 PO; -SYN.1 PO; +ZINC220C28 PO
[2022-01-27 07:56] VITALS: BP 117/55
--- NOTE | 2022-01-27 07:59 | NUR ---
PT WAS B/B AMBULANCE AND PUT ON BED 4.
--- NOTE | 2022-01-27 10:26 | NUR ---
HARD STICK. TRIED SEVERAL TIME TO DRAW BLOOD. FINALLY GET IT AND SENT.
[2022-01-27 10:37] LABS: BASOPHILS # (AUTO) 0.1 K/uL (0.00-0.22); BASOPHILS % (AUTO) 0.9 % (0.0-2.0); EOSINOPHILS % (AUTO) 0.3 % (0.0-4.0); HEMATOCRIT 30.8 % (36-48); HEMOGLOBIN 10.4 g/dL (12.0-16.0); LYMPHOCYTES # (AUTO) 0.4 K/uL (2.5-16.5); LYMPHOCYTES % (AUTO) 6.4 % (20.5-51.1); MEAN CORPUSCULAR HEMOGLOBIN 34 pg (27-31); MEAN CORPUSCULAR HGB CONC 34 g/dL (33-37); MEAN CORPUSCULAR VOLUME 102.2 fL (80-94); MONOCYTES # (AUTO) 0.4 K/uL (0.8-1.0); NEUTROPHILS # (AUTO) 5.2 K/uL (1.8-7.7); NEUTROPHILS % (AUTO) 85.4 % (42.2-75.2); PLATELET COUNT (AUTO) 206 K/uL (140-450); RED BLOOD CELL COUNT(AUTO) 3.02 MIL/uL (4.20-5.40); RED CELL DISTRIBUTION WIDTH 13.7 % (11.6-13.7); WHITE BLOOD COUNT (AUTO) 6.1 K/uL (4.8-10.8)
[2022-01-27 10:47] LABS: ALBUMIN 2.8 g/dL (3.4-5.0); ANION GAP 15.3 (8-16); ASPARTATE AMINOTRANSFERASE 18 U/L (15-37); CARBON DIOXIDE 26.8 mmol/L (21-32); CHLORIDE 103 mmol/L (98-107); GLUCOSE 141 mg/dL (74-106); POTASSIUM 5.1 mmol/L (3.5-5.1); SODIUM SERUM 140 mmol/L (136-145); TOTAL BILIRUBIN 0.5 mg/dL (0.0-1.0); UREA NITROGEN, BLOOD 50 mg/dL (7-18)
[2022-01-27 10:50] LABS: CREATININE 4.7 mg/dL (0.6-1.3)
--- NOTE | 2022-01-27 11:30 | NUR ---
PT WAS D/C'D BACK TO FACILITY. FACILITY WAS CALLED FOR TRANSPOTATION BY UNIT SECRATORY. THEY WILL SEND TRANSPOTATION @0630PM. PT WAS STABLE.
--- NOTE | 2022-01-27 15:11 | NUR ---
AMBULANCE HERE TO PICKUP PT. REPORT ENDORSED TO EMT. REPORT ALSO CALLED AND GIVEN TO CHARGE NURSE IN SNF.
[2022-01-27 15:12] VITALS: BP 167/75
== END 2022-01-27 15:12 ==
LOC: MED 07:52
DX: G47.34 Idiopathic sleep related nonobstructive alveolar hypoventilation (principal); E11.9 Type 2 diabetes mellitus without complications; E03.9 Hypothyroidism, unspecified; I10 Essential (primary) hypertension; K21.9 Gastro-esophageal reflux disease without esophagitis; N18.9 Chronic kidney disease, unspecified; Z79.4 Long term (current) use of insulin; Z79.899 Other long term (current) drug therapy
CPT/HCPCS: 36415; 71045; 80053; 85025; 93005; 99285; Q0092

== ENCOUNTER 2022-11-17 18:55 | Inpatient (IN) | payer OTHER ==
[~2022-11-17] VITALS: Ht 165.1 cm; Wt 68.0 kg
[~2022-11-17 18:55] MED LIST changes: -ASCO500T95 PO; -CEFT1VIA7 IV; -LANTUS SUBQ; -METO-485 PO; -SENN-73 PO; -ZINC220C28 PO
[2022-11-17 19:20] VITALS: BP 153/70; PULSE 86; RESP 16; TEMP 97.4; O2SAT 98
--- NOTE | 2022-11-17 19:26 | NUR ---
BREE[facility] BLS TO ER BED 1
--- NOTE | 2022-11-17 19:30 | NUR ---
[facility] FROM [facility] AFTER MISSING 5 APPOINTMENTS FOR DIALYSIS. PT DENIES PAIN AT THIS TIME AND IS AWAKE, ALERT AND CONFUSED. DIALYSIS SHUNT TO LEFT ARM NOTED
--- NOTE | 2022-11-17 19:45 | NUR ---
SL ESTABLISHED, LABS DRAWN
--- NOTE | 2022-11-17 20:00 | NUR ---
Dr. Varghese examining patient.
[2022-11-17 20:22] LABS: APPEARANCE,URINE SL CLOUDY (CLEAR); BILIRUBIN,URINE NEGATIVE (NEGATIVE); BLOOD, URINE 3+ (NEGATIVE); COLOR,URINE YELLOW (YELLOW); LEUKOCYTE ESTERASE ,URINE 3+ (NEGATIVE); NITRITE, URINE NEGATIVE (NEGATIVE); UGLUCOSE NEGATIVE (NEGATIVE)
[2022-11-17 20:26] LABS: BASOPHILS % (AUTO) 0.4 % (0.0-2.0); EOSINOPHILS # (AUTO) 0.3 K/uL (0-0.4); EOSINOPHILS % (AUTO) 3.9 % (0.0-4.0); HEMATOCRIT 31.5 % (36-48); HEMOGLOBIN 10.6 g/dL (12.0-16.0); LYMPHOCYTES # (AUTO) 1.3 K/uL (2.5-16.5); LYMPHOCYTES % (AUTO) 18.1 % (20.5-51.1); MEAN CORPUSCULAR HEMOGLOBIN 34 pg (27-31); MEAN CORPUSCULAR HGB CONC 34 g/dL (33-37); MEAN CORPUSCULAR VOLUME 101.3 fL (80-94); MONOCYTES # (AUTO) 0.4 K/uL (0.8-1.0); NEUTROPHILS % (AUTO) 71.6 % (42.2-75.2); PLATELET COUNT (AUTO) 274 K/uL (140-450); RED BLOOD CELL COUNT(AUTO) 3.11 MIL/uL (4.20-5.40); RED CELL DISTRIBUTION WIDTH 13.1 % (11.6-13.7)
[2022-11-17 20:39] LABS: RBC,URINE TOO NUMEROUS TO COUN /HPF (0-5); RED BLOOD CELL CASTS,URINE 0-10 /LPF (None Seen); TRICHOMONAS,URINE None Seen /HPF (None Seen); YEAST,URINE None Seen /HPF (None Seen)
[2022-11-17 20:41] LABS: ALBUMIN 2.6 g/dL (3.4-5.0); ANION GAP 13.3 (8-16); ASPARTATE AMINOTRANSFERASE 16 U/L (15-37); CARBON DIOXIDE 28.5 mmol/L (21-32); CHLORIDE 100 mmol/L (98-107); GLUCOSE 256 mg/dL (74-106); POTASSIUM 4.8 mmol/L (3.5-5.1); SODIUM SERUM 137 mmol/L (136-145); TOTAL BILIRUBIN 0.3 mg/dL (0.0-1.0); UREA NITROGEN, BLOOD 58 mg/dL (7-18)
[2022-11-17 20:47] LABS: CREATININE 4.8 mg/dL (0.6-1.3)
[2022-11-17] MEDS ORDERED: cefTRIAXone 1,000 MG VIAL ONE (21:15)
[2022-11-17] MEDS ORDERED: ACETAMINOPHEN 650 MG/20.3 ML UDC PO ONE (21:25)
[2022-11-17] MEDS ORDERED: INSU100S22 SUBQ (21:34)
[2022-11-17] MEDS ORDERED: INSU100I21 SQ (21:34)
[2022-11-17] MEDS ORDERED: MAG SULF 2000 MG/WATER PREMIX 50 ML IV PRN (21:50)
[2022-11-17] MEDS ORDERED: MORPHINE SULFATE 2 MG/ML SYR IVP PRN (21:50)
[2022-11-17] MEDS ORDERED: ONDANSETRON 4 MG/2 ML VIAL IVP PRN (21:50)
[2022-11-17] MEDS ORDERED: DOCUSATE SODIUM 100 MG GELCAP PO PRN (21:50)
[2022-11-17] MEDS ORDERED: ZOLPIDEM 10 MG TAB PO PRN (21:50)
[2022-11-17] MEDS ORDERED: ACETAMINOPHEN 325 MG TAB PO PRN (21:50)
[2022-11-17] MEDS ORDERED: LORazepam 2 MG/ML VIAL IVP PRN (21:50)
[2022-11-17] MEDS ORDERED: POTASSIUM CHLORIDE 10 MEQ TABER PO PRN (21:50)
[2022-11-17] MEDS ORDERED: DEXTROSE 50% 50 ML SYR IVP PRN (21:55)
[2022-11-17 22:30] VITALS: BP 163/67; PULSE 82; PULSE 89; RESP 18; TEMP 96.4; O2SAT 96
--- NOTE | 2022-11-17 22:30 | NUR ---
RECEIVED REPORT FROM ER NURSE MICHELE FOR CONTINUITY OF CARE. PATIENT IS A&O X2-3. PATIENT IS ON ROOM AIR, BREATHING IS NORMAL WITH SYMMETRICAL RISE AND FALL OF CHEST. IV IS A 20G RAC; NO FLUIDS RUNNING AT THIS TIME. PATIENT IS UNABLE TO AMBULATE DUE TO GENERAL WEAKNESS AND IS LYING IN SEMI-FOWLERS POSITION. BED IS IN LOWEST POSITION, WHEELS LOCKED AND CALL LIGHT IN PLACE. WILL CONTINUE TO OBSERVE PATIENT.
[2022-11-17] MEDS ORDERED: PIPERACILLIN/TAZOBACTAM 2.25 GM in DEXTROSE 5% 50 ML IV SCH (22:50)
--- NOTE | 2022-11-17 22:54 | NUR ---
Patient will be admitted to care of [facility]. Admited toTELE. Will go to [id number]. Belongings list completed. Report to GAIL SANCHEZ.
[2022-11-17] MEDS ORDERED: PIPERACILLIN/TAZOBACTAM 2.25 GM VIAL IV ONE (23:57)
[2022-11-18 04:00] VITALS: BP 156/49; PULSE 76; PULSE 81; RESP 18; TEMP 97.1; O2SAT 97
--- NOTE | 2022-11-18 05:00 | NUR ---
PATIENT HAS SLEPT THROUGHOUT THE NIGHT. BREATHIING IS NORMAL WITH SYMMETRICAL RISE AND FALL OF CHEST. WILL CONTINUE TO OBSERVE PATIENT.
[2022-11-18] MEDS ORDERED: PIPERACILLIN/TAZOBACTAM 2.25 GM VIAL IV ONE (05:34)
[2022-11-18] MEDS: PIPERACILLIN/TAZOBACTAM 2.25 GM in DEXTROSE 5% 50 ML IV SCH ×3 (05:45→20:43)
[2022-11-18] MEDS: LEVOTHYROXINE 0.05 MG TAB PO SCH (05:50)
[2022-11-18] MEDS: INSULIN LISPRO SLIDING SCALE 100 UNITS/ML VIAL SUBQ SCH ×3 (06:45→16:30)
[2022-11-18] MEDS: INSULIN LISPRO SLIDING SCALE 100 UNITS/ML VIAL SUBQ PRN ×3 (06:47→20:38)
[2022-11-18 06:50] LABS: BASOPHILS # (AUTO) 0.1 K/uL (0.00-0.22); BASOPHILS % (AUTO) 1.2 % (0.0-2.0); EOSINOPHILS # (AUTO) 0.3 K/uL (0-0.4); EOSINOPHILS % (AUTO) 4.7 % (0.0-4.0); HEMATOCRIT 30.8 % (36-48); HEMOGLOBIN 10.2 g/dL (12.0-16.0); LYMPHOCYTES # (AUTO) 1.3 K/uL (2.5-16.5); LYMPHOCYTES % (AUTO) 23.2 % (20.5-51.1); MEAN CORPUSCULAR HEMOGLOBIN 34 pg (27-31); MEAN CORPUSCULAR HGB CONC 33 g/dL (33-37); MEAN CORPUSCULAR VOLUME 101.8 fL (80-94); MONOCYTES # (AUTO) 0.4 K/uL (0.8-1.0); MONOCYTES % (AUTO) 7.6 % (1.7-9.3); NEUTROPHILS # (AUTO) 3.6 K/uL (1.8-7.7); NEUTROPHILS % (AUTO) 63.3 % (42.2-75.2); PLATELET COUNT (AUTO) 246 K/uL (140-450); RED BLOOD CELL COUNT(AUTO) 3.03 MIL/uL (4.20-5.40); RED CELL DISTRIBUTION WIDTH 13.3 % (11.6-13.7); WHITE BLOOD COUNT (AUTO) 5.7 K/uL (4.8-10.8)
[2022-11-18] MEDS: BLOOD GLUCOSE MONITORING 1 DEV DEV FS SCH ×4 (06:51→20:30)
[2022-11-18 07:07] LABS: ANION GAP 12.4 (8-16); CARBON DIOXIDE 29.4 mmol/L (21-32); CHLORIDE 102 mmol/L (98-107); GLUCOSE 259 mg/dL (74-106); POTASSIUM 4.8 mmol/L (3.5-5.1); SODIUM SERUM 139 mmol/L (136-145); UREA NITROGEN, BLOOD 58 mg/dL (7-18)
[2022-11-18 07:11] LABS: CREATININE 4.8 mg/dL (0.6-1.3)
--- NOTE | 2022-11-18 07:27 | NUR ---
ENDORSED TO DAY SHIFT NURSE MATTHEW FOR CONTINUITY OF CARE. PATIENT IS STABLE.
[2022-11-18 08:00] VITALS: BP 177/73; PULSE 81; RESP 18; TEMP 96.3; O2SAT 100
--- NOTE | 2022-11-18 08:00 | NUR ---
NURSE REPORT REPORT OBTAINED FROM NIGHT NURSE LAURA AGRAWAL AT 0726 AND THIS NURSE ASSUMED CARE. VSS. AFEB. TELE WITH SR 77. NO C/O PAIN OR DISCOMFORT. PATIENT NEEDED ASSISTANCE WITH EATING BREAKFAST MATTHEW SPRAGUE RN
[2022-11-18] MEDS: DOCUSATE SODIUM 100 MG GELCAP PO SCH (09:00)
--- NOTE | 2022-11-18 11:29 | NUR ---
PATIENT HAS BEEN SCREENED AND CATEGORIZED HIGH NUTRITION RISK. PATIENT WILL BE SEEN WITHIN 1-2 DAYS OF ADMISSION. 11/18// RECEIVED [facility] CONSULT AND REFERRAL FOR WOUNDS/PRESSURE INJURY AND UNCONTROLLED DIABETES. RECOMMEND ADDING [id number] AND RENAL RESTRICTION TO CURRENT DIET YVES GONZALEZ RD
[2022-11-18 12:00] VITALS: BP 135/54; PULSE 78; PULSE 80; RESP 18; TEMP 96.6; O2SAT 100
--- NOTE | 2022-11-18 13:00 | NUR ---
NURSE NOTES VSS. AFEB. TELE WITH ST 78. NO C/O PAIN OR DISCOMFORT. PATIENT TAKING LUNCH BETTER. TALKING MUCH MORE. ON IVPB MARJANSYN
[2022-11-18 16:00] VITALS: BP 135/66; PULSE 76; PULSE 77; RESP 18; TEMP 96.7; O2SAT 99
--- NOTE | 2022-11-18 17:30 | NUR ---
NURSE NOTES BG BEFORE DINNER- 125. NO SLIDING SCALE INSULIN NEEDED
--- NOTE | 2022-11-18 18:00 | NUR ---
NURSE NOTES THIS AM, NEEDED TO FEED PT FOR BREAKFAST. AT DINNER PT WAS FEEDING HERSELF.
--- NOTE | 2022-11-18 19:20 | NUR ---
NURSE REPORT REPORT GIVEN TO NIGHT NURSE LAURA Benito TO ASSUME CARE OF PATIENT. ALL QUESTIONS ANSWERED. MATTHEW SPRAGUE RN
--- NOTE | 2022-11-18 19:30 | NUR ---
RECEIVED REPORT FROM DAY SHIFT NURSE MATTHEW FOR CONTINUITY OF CARE. PATIENT IS A&O X2-3. PATIENT IS ON ROOM AIR, BREATHING IS NORMAL WITH SYMMETRICAL RISE AND FALL OF CHEST. IV IS A 20G RAC; FLUIDS RUNNING NS 5ML TKO. PATIENT IS LYING IN SEMI-FOWLERS POSITION. BED IS IN LOWEST POSITION, WHEELS LOCKED AND CALL LIGHT IN PLACE. WILL CONTINUE TO OBSERVE PATIENT.
[2022-11-18 20:00] VITALS: BP 171/73; PULSE 79; PULSE 80; RESP 16; RESP 18; TEMP 97.8; O2SAT 97
[2022-11-18] MEDS: SENNA 8.6 MG TAB PO SCH (20:42)
--- NOTE | 2022-11-18 22:45 | NUR ---
DR. TUCKER SAW PATIENT AND PUT IN ORDER FOR HD TO BE DONE TOMORROW. CONSENT FOR DIALYSIS WAS SIGNED BY PATIENT. PATIENT IS LYING SEMI-FOWLERS IN BED. WILL CONTINUE TO OBSERVE PATIENT.
[2022-11-19] VITALS (8 sets, daily range): BP systolic 113–185; BP diastolic 52–79; PULSE 83–118; RESP 17–18; TEMP 97–98.3; O2SAT 97–98
--- NOTE | 2022-11-19 01:25 | NUR ---
PATIENT'S BP WAS 181/67; MESSAGED OPERATIONS SPECIALIST PHYSICIAN DR. JONES FOR PRN BP MEDICATION. PENDING RESPONSE.
--- NOTE | 2022-11-19 02:11 | NUR ---
RESENT MESSAGE TO [employer] PRODUCER PHYSICIAN FOR BP MEDICATION. PENDING RESPONSE.
[2022-11-19] MEDS ORDERED: hydrALAZINE 20 MG/ML VIAL IVP SCH ×2 (02:25→03:17)
--- NOTE | 2022-11-19 02:25 | NUR ---
RECEIVED RESPONSE FROM LINEN ROOM CUSTODIAN PHYSICIAN. DR. JONES ORDERED HYDRALAZINE 10 IV ONE TIME. PUT ORDER INTO SYSTEM; PENDING PHARMACY AUTHORIZATION.
--- NOTE | 2022-11-19 03:43 | NUR ---
CALLED PHARMACY FOR AUTHORIZATION OF MEDICATION HYDRALAZINE. MEDICATION WAS AUTHORIZED; REASSESSED PATIENT'S BP AND HR BEFORE ADMINISTERING BP WAS 192/85 HR WAS 93; ADMINISTERED MEDICATION TO PATIENT. WILL REASSESS EFFECTIVENESS.
[2022-11-19] MEDS: PIPERACILLIN/TAZOBACTAM 2.25 GM in DEXTROSE 5% 50 ML IV SCH ×3 (05:48→20:56)
[2022-11-19] MEDS: LEVOTHYROXINE 0.05 MG TAB PO SCH (06:27)
[2022-11-19 06:32] LABS: BASOPHILS # (AUTO) 0.1 K/uL (0.00-0.22); BASOPHILS % (AUTO) 1.2 % (0.0-2.0); EOSINOPHILS # (AUTO) 0.3 K/uL (0-0.4); EOSINOPHILS % (AUTO) 3.4 % (0.0-4.0); HEMATOCRIT 35.3 % (36-48); HEMOGLOBIN 11.5 g/dL (12.0-16.0); LYMPHOCYTES # (AUTO) 1.2 K/uL (2.5-16.5); LYMPHOCYTES % (AUTO) 12.5 % (20.5-51.1); MEAN CORPUSCULAR HEMOGLOBIN 34 pg (27-31); MEAN CORPUSCULAR HGB CONC 33 g/dL (33-37); MEAN CORPUSCULAR VOLUME 104.7 fL (80-94); MONOCYTES # (AUTO) 0.5 K/uL (0.8-1.0); MONOCYTES % (AUTO) 4.9 % (1.7-9.3); NEUTROPHILS # (AUTO) 7.4 K/uL (1.8-7.7); PLATELET COUNT (AUTO) 259 K/uL (140-450); RED BLOOD CELL COUNT(AUTO) 3.37 MIL/uL (4.20-5.40); WHITE BLOOD COUNT (AUTO) 9.5 K/uL (4.8-10.8)
[2022-11-19] MEDS: BLOOD GLUCOSE MONITORING 1 DEV DEV FS SCH ×4 (06:33→21:01)
[2022-11-19] MEDS: INSULIN LISPRO SLIDING SCALE 100 UNITS/ML VIAL SUBQ SCH ×3 (06:39→16:41)
[2022-11-19] MEDS: INSULIN LISPRO SLIDING SCALE 100 UNITS/ML VIAL SUBQ PRN ×2 (06:41→21:00)
[2022-11-19 07:01] LABS: ANION GAP 19.5 (8-16); CARBON DIOXIDE 23.9 mmol/L (21-32); CHLORIDE 99 mmol/L (98-107); GLUCOSE 393 mg/dL (74-106); POTASSIUM 5.4 mmol/L (3.5-5.1); SODIUM SERUM 137 mmol/L (136-145)
[2022-11-19 07:05] LABS: UREA NITROGEN, BLOOD 64 mg/dL (7-18)
[2022-11-19 07:06] LABS: CREATININE 5.2 mg/dL (0.6-1.3)
--- NOTE | 2022-11-19 07:12 | NUR ---
RECEIVED CRITICAL LAB BUN 64. MESSAGED MONEY COUNTER PHYSICIAN DR. KEITH; PENDING RESPONSE.
--- NOTE | 2022-11-19 07:15 | NUR ---
ASSUMED CONTINUITY OF CARE. INITIAL ASSESSMENT DONE. RE-ORIENTED TO EVENTS AND SURROUNDINGS. KEEP COMFORTABLE ON BED. FALL PRECAUTION APPLIED. CALL LIGHT WITHIN REACH.
--- NOTE | 2022-11-19 07:42 | NUR ---
ENDORSED TO DAY SHIFT NURSE JOSE ALFREDO FOR CONTINUITY OF CARE. PATIENT IS STABLE.
--- NOTE | 2022-11-19 08:00 | NUR ---
Patient's Plan of Care was discussed and reviewed with PRODUCE DEPARTMENT SUPERVISOR: JOSE ALFREDO EL
--- NOTE | 2022-11-19 08:20 | NUR ---
DR. KEITH CAME, INFORMED OF PT. BP AT 0800 185/75. NO ORDER RECEIVED. DR. KEITH SAID THAT IF PT. WILL BE HAVING HD BEFORE 1200 NO NEED FOR BP MEDS FOR HIGH BP. INFORMED CHARGE NURSE ALFONSO FLORES.
[2022-11-19] MEDS: DOCUSATE SODIUM 100 MG GELCAP PO SCH (09:00)
--- NOTE | 2022-11-19 09:40 | NUR ---
HD NURSES STARTED PT. DIALYSIS AT THIS TIME.
--- NOTE | 2022-11-19 11:04 | NUR ---
Echo V[employer] Tech This pt. came to [facility] on 11/17 from [facility]. COMPANY TRUCK DRIVER called Ayaka Li and spoke to Alina who answered questions re. a Discharge Planning Assessment. Alina stated Chaya Stoddard, a friend is pts. [facility], . This patient takes Ativan for Depression and Anxiety. Pt. is non-ambulatory. As per Alina, pt. will sometimes refuse to go to Hemodialysis. Pt. is alert with confusion. As per Alina, pt. will return to [facility] once she is discharged. COMPANY TRUCK DRIVER will remain available as needed.
--- NOTE | 2022-11-19 12:20 | NUR ---
HD NURSE REPORTED THAT PT. HD OUTPUT WAS 1.5 LITER. PT. RESTING ON BED COMFORTABLY. CALL LIGHT WITHIN REACH. INFORMED CHARGE NURSE ALFONSO FLORES ABOUT HD OUTPUT.
[2022-11-19] MEDS: CHLORHEXADINE GLUC 2% CLOTH TP SCH (12:46)
[2022-11-19] MEDS: MUPIROCIN CA NASAL 2% 1GM TUBE NS SCH (12:46)
--- NOTE | 2022-11-19 14:52 | NUR ---
11/19/22 RD INITIAL ASSESSMENT COMPLETED PLEASE REFER TO NUTRITION ASSESSMENT UNDER CARE ACTIVITY FOR ESTIMATED NUTRITIONAL NEEDS. 1. CONTINUE CCHO 60GRAM AND RENAL DIET TOLERATED 2. RD RECOMMENDS NEPRO BID FOR PO INTAKE WHICH WILL PROVIDE 840 CALORIES AND 38 GRAMS OF PROTEIN. 3. RD RECOMMENDS PROSOURCE BID FOR WOUNDS WHICH WILL PROVIDE 180 CALORIES AND 30 GRAMS OF PROTEIN. 4. RD TO FOLLOW-UP 3-5 DAYS, MODERATE RISK GABE NATARAJAN RD
--- NOTE | 2022-11-19 16:11 | NUR ---
PT. WITH LOW FRED SCALE AT MODERATE TO HIGH RISK, CONTINUE TO FOLLOW PRESSURE INJURY PREVENTION INTERVENTIONS. PT. ADMITTED WITH SACRALCOCCYX HEALED SCAR TISSUE 10X4 CM WITH MASD PEELING SKIN, NO OPEN WOUND, FOAM DRESSING APPLIED. POC DISCUSSED WITH PT. PT. NEED REINFORCED. POC DISCUSSED WITH PRIMARY NURSE JOSE ALFREDO. -POSITIONING: TURN AND REPOSITION PATIENT Q 2H OR SOONER USE PILLOWS TO KEEP BONY PROMINENCES FROM DIRECT CONTACT WITH SURFACES USE REPOSITIONING WEDGES TO PROVIDE 30-DEGREE ANGLE FOR SIDE LYING POSITIONS OFFLOADING OR FOAM DRESSING TO ALL TUBING TO PREVENT MEDICAL DEVICES RELATED PRESSURE INJURY -RE-EVALUATING AND MANAGING INCONTINENCE MONITOR SKIN CONDITION DURING POSITION CHANGE DO NOT MASSAGE REDNESS, BONY PROMINENCES FREQUENT LUIS-CARE AND PROVIDE BARRIER CREAMS PRN IF SOILING MOISTURE CONTROL BY OFFER BED CRUZ /ABSORBENT PAD TO WICK AND HOLD MOISTURE KEEP SKIN DRY AND PROTECT FROM FRICTION -MANAGE FRICTION/SHEAR/MOBILITY KEEP HOB AT THE LOWEST LEVEL OF ELEVATION NO MORE THAN 30 DEGREE UNLESS OTHERWISE CONTRAINDICATED USE LIFT SHEET OR TRANSFER DEVICE TO MOVE PATIENT AND PREVENT LATERAL SHEER. PROTECT HEELS, ELBOWS BONY PROMINENCES WITH SKIN BERRIES OR FOAM DRESSING IF EXPOSED TO FRICTION OFFLOAD BILATERAL HEELS BY PLACING PILLOWS UNDER CALVES AT ALL TIMES, UNLESS OTHERWISE CONTRAINDICATED -PRESSURE REDISTRIBUTION SURFACE THERAPY BRYAN ISOFLEX MATTRESS -NUTRITION: PLEASE FOLLOW RD RECOMMENDATIONS AND OFFER NUTRITION SUPPLEMENTS IF ORDERED. PLEASE CONTACT WOUND CARE NURSE FOR ANY QUESTION AND CHANGE OF WOUND CONDITION
--- NOTE | 2022-11-19 19:21 | NUR ---
REPORT GIVEN TO SKYLA FLORES. IN STABLE CONDITION.
--- NOTE | 2022-11-19 19:25 | NUR ---
RECEIVED REPORT FROM DAY SHIFT NURSE FOR CONTINUITY OF CARE. PT IS AWAKE. RESTING IN BED. FOOD BY BEDSIDE. PT NOT IN ANY DISTRESS. FC DRAINING TO GRAVITY. POC DISCUSSED. CALL LIGHT WITHIN REACH. WILL CONTINUE TO MONITOR THE PT.
[2022-11-19] MEDS: SENNA 8.6 MG TAB PO SCH (20:56)
[2022-11-20] VITALS: BP 153/60; PULSE 92; PULSE 94; RESP 17; TEMP 98; O2SAT 97
--- NOTE | 2022-11-20 00:32 | NUR ---
OBSERVED PT. PT IS SLEEPING COMFORTABLY IN BED. NOT IN ANY DISTRESS. BREATHING EVEN AND UNLABORED. BED AT THE LOWEST POSITION. HEAD OF THE BED RAISED. WILL CONTINUE TO MONITOR THE PT.
[2022-11-20 04:00] VITALS: BP 149/63; PULSE 100; PULSE 117; RESP 18; TEMP 97.4; O2SAT 98
--- NOTE | 2022-11-20 04:10 | NUR ---
PT HAS VOMITED ON HERSELF. PT WAS NOT RESPONDING TO QUESTIONS WHEN ASKED. DISCOMFORT NOTICED. PT WAS GIVEN ZOFRAN AND WAS CLEANED AND CHANGED. AFTER A LITTLE WHILE PT STARTING TO SPEAK AGAIN AND FEELS SO MUCH BETTER.
[2022-11-20] MEDS: PIPERACILLIN/TAZOBACTAM 2.25 GM in DEXTROSE 5% 50 ML IV SCH ×2 (04:35→14:02)
[2022-11-20] MEDS ORDERED: LEVOTHYROXINE 0.075 MG TAB PO SCH (06:30)
[2022-11-20] MEDS: INSULIN LISPRO SLIDING SCALE 100 UNITS/ML VIAL SUBQ SCH ×2 (06:38→12:35)
[2022-11-20] MEDS: BLOOD GLUCOSE MONITORING 1 DEV DEV FS SCH ×2 (06:39→12:30)
[2022-11-20] MEDS: INSULIN LISPRO SLIDING SCALE 100 UNITS/ML VIAL SUBQ PRN (06:39)
[2022-11-20 06:43] LABS: BASOPHILS # (AUTO) 0.1 K/uL (0.00-0.22); BASOPHILS % (AUTO) 0.6 % (0.0-2.0); EOSINOPHILS % (AUTO) 0.3 % (0.0-4.0); HEMATOCRIT 33.9 % (36-48); LYMPHOCYTES # (AUTO) 0.5 K/uL (2.5-16.5); LYMPHOCYTES % (AUTO) 3.7 % (20.5-51.1); MEAN CORPUSCULAR HEMOGLOBIN 34 pg (27-31); MEAN CORPUSCULAR HGB CONC 33 g/dL (33-37); MEAN CORPUSCULAR VOLUME 104.1 fL (80-94); MONOCYTES # (AUTO) 0.5 K/uL (0.8-1.0); MONOCYTES % (AUTO) 3.6 % (1.7-9.3); NEUTROPHILS # (AUTO) 13.7 K/uL (1.8-7.7); NEUTROPHILS % (AUTO) 91.8 % (42.2-75.2); PLATELET COUNT (AUTO) 248 K/uL (140-450); RED BLOOD CELL COUNT(AUTO) 3.26 MIL/uL (4.20-5.40); RED CELL DISTRIBUTION WIDTH 14.2 % (11.6-13.7); WHITE BLOOD COUNT (AUTO) 14.9 K/uL (4.8-10.8)
[2022-11-20 06:50] LABS: ANION GAP 25.4 (8-16); CARBON DIOXIDE 22.8 mmol/L (21-32); CHLORIDE 90 mmol/L (98-107); POTASSIUM 5.2 mmol/L (3.5-5.1); UREA NITROGEN, BLOOD 49 mg/dL (7-18)
[2022-11-20 06:51] LABS: CREATININE 4.3 mg/dL (0.6-1.3); GLUCOSE 526 mg/dL (74-106)
[2022-11-20 06:53] LABS: SODIUM SERUM 133 mmol/L (136-145)
--- NOTE | 2022-11-20 07:04 | NUR ---
ENDORSED PT TO DAY SHIFT NURSE FOR CONTINUITY OF CARE. PT IS STABLE.
--- NOTE | 2022-11-20 07:05 | NUR ---
RECEIVED REPORT FROM NIGHTSHIFT NURSE FOR CONTINUITY OF CARE. PT RESTING IN BED, STABLE. PT REPORTS NO PAIN/DISCOMFORT AT THIS TIME. CALL LIGHT IS WITHIN REACH. NO FURTHER NEEDS ARE TO BE MET AT THIS TIME. WILL CONTINUE WITH PT CARE.
[2022-11-20] MEDS ORDERED: AMOX-999 PO (07:22)
[2022-11-20 08:00] VITALS: BP 129/54; PULSE 118; RESP 16; RESP 18; TEMP 97.4; O2SAT 95; O2SAT 97
[2022-11-20] MEDS: DOCUSATE SODIUM 100 MG GELCAP PO SCH (09:00)
--- NOTE | 2022-11-20 11:27 | NUR ---
RECEIVED ORDER FOR PATIENT TO GO BACK TO SNF FOR CONTINUE OF CARE. FAXED ALL PAPERWORK TO [facility]. SPOKE WITH PREET FROM [facility] LOCATED AT [address] [place] [address]. PATIENT WILL BE GOING TO ROOM 15-[address] UND[address] DR LIANG. ARRANGED TRANSPORTATION WITH [facility] TRANSPORT FOR A [address] SEED EXPERT TIME. NURSE MARICHUY AWARE OF THE ABOVE INFORMATION AND RAJIV LEPE WAS CALLED BUT DIDN'T ANSWER SO WAS LEFT A MESSAGE. Addendum: 11/20/22 at 1329 by MATHEW SINGH CM TRANSPORT VENDORS INFORMATION IS [facility] FOR A 1600 SEED EXPERT TIME.
[2022-11-20] MEDS: CHLORHEXADINE GLUC 2% CLOTH TP SCH (13:00)
[2022-11-20] MEDS: MUPIROCIN CA NASAL 2% 1GM TUBE NS SCH (14:02)
--- NOTE | 2022-11-20 15:00 | NUR ---
WAS INFORMED BY CASE MANAGEMENT AND TRANSPORTATION SERVICE THAT PT WAS SCHEDULED TO BE PICKED UP AT 4PM/1600. TRANSPORTATION ARRIVED AT 2PM/1400. PT WAS PREPARED FOR DC, UNDERSTOOD EDUCATION. IV WAS REMOVED, ID BAND REMOVED. STABLE UPON LEAVING. LEFT UNIT WITH TRANSPORTATION VIA [facility]. REPORT WAS GIVEN TO SAVANNAH REYNOLDS AT [facility].
== END 2022-11-20 14:45 | DRG 871 ==
LOC: MED 18:55 → MTU 21:49
PROVIDERS: ADMIT Family Medicine; ATTEND Family Medicine
PROC: 5A1D70Z Performance of Urinary Filtration, Intermittent, Less than 6 Hours Per Day (ICD-10-PCS; principal; 2022-11-19)
DX: A41.9 Sepsis, unspecified organism (principal); I21.A1 Myocardial infarction type 2; N18.6 End stage renal disease; N17.0 Acute kidney failure with tubular necrosis; N13.6 Pyonephrosis; I12.0 Hypertensive chronic kidney disease with stage 5 chronic kidney disease or end stage renal disease; E44.0 Moderate protein-calorie malnutrition; N39.0 Urinary tract infection, site not specified; E03.9 Hypothyroidism, unspecified; B95.62 Methicillin resistant Staphylococcus aureus infection as the cause of diseases classified elsewhere; N31.9 Neuromuscular dysfunction of bladder, unspecified; N32.89 Other specified disorders of bladder; K21.9 Gastro-esophageal reflux disease without esophagitis; F03.90 Unspecified dementia, unspecified severity, without behavioral disturbance, psychotic disturbance, mood disturbance, and anxiety; E11.22 Type 2 diabetes mellitus with diabetic chronic kidney disease; D64.9 Anemia, unspecified; R41.82 Altered mental status, unspecified; Z79.899 Other long term (current) drug therapy; Z99.2 Dependence on renal dialysis; Z80.9 Family history of malignant neoplasm, unspecified; Z88.8 Allergy status to other drugs, medicaments and biological substances; Z68.25 Body mass index [BMI] 25.0-25.9, adult
CPT/HCPCS: 36415; 71045; 76770; 80048; 80053; 81001; 82550; 82948; 83735; 83880; 84484; 85025; 87081; 87086; 96365; 99285; J0360; J0696; J1815; J2405; J2543; J7060; Q0092

== ENCOUNTER 2023-01-17 15:13 | Inpatient (IN) | payer OTHER ==
[~2023-01-17] VITALS: Ht 154.9 cm; Wt 63.2 kg
[~2023-01-17 15:13] MED LIST changes: +AMOX-999 PO
[2023-01-17 15:20] VITALS: BP 134/60; PULSE 78; RESP 17; TEMP 97.6; O2SAT 97
[2023-01-17] MEDS ORDERED: NACL 0.9% 1,000 ML IV SCH (15:30)
[2023-01-17] MEDS ORDERED: cefTRIAXone 1,000 MG in DEXT 5% MINI-BAG PLUS 50 ML IV ONE (15:30)
[2023-01-17 16:02] LABS: BASOPHILS % (AUTO) 0.2 % (0.0-2.0); EOSINOPHILS # (AUTO) 0.1 K/uL (0-0.4); EOSINOPHILS % (AUTO) 1.7 % (0.0-4.0); HEMATOCRIT 34.2 % (36-48); HEMOGLOBIN 11.4 g/dL (12.0-16.0); LYMPHOCYTES % (AUTO) 15.1 % (20.5-51.1); MEAN CORPUSCULAR HEMOGLOBIN 34 pg (27-31); MEAN CORPUSCULAR HGB CONC 33 g/dL (33-37); MEAN CORPUSCULAR VOLUME 100.9 fL (80-94); MONOCYTES # (AUTO) 0.7 K/uL (0.8-1.0); MONOCYTES % (AUTO) 10.8 % (1.7-9.3); NEUTROPHILS # (AUTO) 4.8 K/uL (1.8-7.7); NEUTROPHILS % (AUTO) 72.2 % (42.2-75.2); PLATELET COUNT (AUTO) 176 K/uL (140-450); RED BLOOD CELL COUNT(AUTO) 3.38 MIL/uL (4.20-5.40); WHITE BLOOD COUNT (AUTO) 6.7 K/uL (4.8-10.8)
[2023-01-17 16:21] LABS: ALANINE AMINOTRANSFERASE 14 U/L (12-78); ALBUMIN 3.1 g/dL (3.4-5.0); ALKALINE PHOSPHATASE 92 U/L (50-136); ANION GAP 20.4 (8-16); ASPARTATE AMINOTRANSFERASE 13 U/L (15-37); CALCIUM 9.6 mg/dL (8.5-10.1); CARBON DIOXIDE 21.9 mmol/L (21-32); CHLORIDE 93 mmol/L (98-107); POTASSIUM 4.3 mmol/L (3.5-5.1); SODIUM SERUM 131 mmol/L (136-145); TOTAL BILIRUBIN 0.4 mg/dL (0.0-1.0); TOTAL PROTEIN, SERUM 7.3 g/dL (6.4-8.2)
[2023-01-17] MEDS ORDERED: cefTRIAXone 1,000 MG VIAL ONE (16:24)
[2023-01-17 16:25] LABS: GLUCOSE 448 mg/dL (74-106); LACTIC ACID 5.5 mmol/L (0.4-2.0); UREA NITROGEN, BLOOD 69 mg/dL (7-18)
[2023-01-17 16:26] LABS: CREATININE 6.4 mg/dL (0.6-1.3)
[2023-01-17] MEDS ORDERED: INSULIN REGULAR, HUMAN 100 UNIT in NACL 0.9% 100 ML IV ONE ×2 (16:55)
[2023-01-17] MEDS ORDERED: DEXTROSE 50% 50 ML SYR IVP PRN (17:50)
[2023-01-17] MEDS: BLOOD GLUCOSE MONITORING 1 DEV DEV FS SCH ×7 (18:13→23:50)
[2023-01-17 18:14] LABS: BLOOD GAS PH 7.365 (7.35-7.45)
[2023-01-17 18:15] LABS: BLOOD GAS BASE EXCESS -5.3 mmol/L (-2.0-2.0); BLOOD GAS HCO3 19.3 mmol/L (22-26); BLOOD GAS O2 SAT% 96.8 % (92.0-98.5); BLOOD GAS PCO2 34.5 mmHg (35-45); BLOOD GAS PO2 87.6 mmHg (75-100)
[2023-01-17 18:56] LABS: FREE T4 (FREE THYROXINE) 1.08 ng/dL (0.76-1.46); THYROID STIMULATING HORMONE 4.28 uIU/mL (0.34-3.74)
[2023-01-17] MEDS: INSULIN REGULAR, HUMAN 100 UNIT in NACL 0.9% 100 ML IV SCH ×4 (19:01→19:30)
[2023-01-17 19:35] LABS: APPEARANCE,URINE CLOUDY (CLEAR)
[2023-01-17 19:36] LABS: COLOR,URINE AMBER (YELLOW); LEUKOCYTE ESTERASE ,URINE 3+ (NEGATIVE); NITRITE, URINE NEGATIVE (NEGATIVE); UROBILINOGEN,URINE 0.2 EU/dL (0.2 - 1)
[2023-01-17 19:37] LABS: BLOOD, URINE 3+ (NEGATIVE); PH,URINE 7.5 (5.0-9.0); PROTEIN,URINE 1+ (NEGATIVE)
[2023-01-17 19:38] LABS: BILIRUBIN,URINE NEGATIVE (NEGATIVE); UGLUCOSE 4+ (NEGATIVE)
[2023-01-17 19:39] LABS: BACTERIA,URINE 10-30 (MOD) /HPF (None Seen); RBC,URINE 11-20 (MOD) /HPF (0-5); SQUAMOUS EPITHELIAL CELL,UR 0-3 (FEW) /LPF (0-3 (FEW))
[2023-01-17 19:40] VITALS: PULSE 75; RESP 14; O2SAT 100
[2023-01-17 20:00] VITALS: BP 97/45; PULSE 101; PULSE 75; RESP 14; RESP 18; TEMP 96.5; O2SAT 100; O2SAT 95
[2023-01-17] MEDS: DEXT 5% / NACL 0.45% 1,000 ML IV SCH (20:10)
[2023-01-17] MEDS ORDERED: INSULIN REGULAR, HUMAN 100 UNIT in NACL 0.9% 100 ML IV SCH ×2 (20:10)
[2023-01-17] MEDS: NACL 0.9% 1,000 ML IV SCH (20:10)
[2023-01-17 20:36] LABS: ANION GAP 16.8 (8-16); CALCIUM 9.3 mg/dL (8.5-10.1); CARBON DIOXIDE 23.6 mmol/L (21-32); CHLORIDE 98 mmol/L (98-107); GLUCOSE 149 mg/dL (74-106); POTASSIUM 3.4 mmol/L (3.5-5.1); SODIUM SERUM 135 mmol/L (136-145)
[2023-01-17 20:40] LABS: MAGNESIUM 2.1 mg/dL (1.8-2.4); PHOSPHORUS 4.1 mg/dL (2.5-4.9)
[2023-01-17 20:41] LABS: CREATININE 5.8 mg/dL (0.6-1.3); UREA NITROGEN, BLOOD 68 mg/dL (7-18)
[2023-01-17 21:00] VITALS: BP 149/59; PULSE 71; RESP 14; O2SAT 98
[2023-01-17 22:00] VITALS: BP 136/56; PULSE 72; RESP 14; O2SAT 100
[2023-01-17 23:00] VITALS: BP 144/56; PULSE 72; RESP 14; O2SAT 97
[2023-01-18] VITALS (16 sets, daily range): BP systolic 116–140; BP diastolic 42–93; PULSE 73–102; RESP 12–18; TEMP 97–98; O2SAT 95–100
[2023-01-18 00:35] LABS: ANION GAP 14.3 (8-16); CALCIUM 8.7 mg/dL (8.5-10.1); CARBON DIOXIDE 25.1 mmol/L (21-32); CHLORIDE 99 mmol/L (98-107); GLUCOSE 67 mg/dL (74-106); POTASSIUM 3.4 mmol/L (3.5-5.1); SODIUM SERUM 135 mmol/L (136-145)
[2023-01-18 00:38] LABS: MAGNESIUM 1.8 mg/dL (1.8-2.4)
[2023-01-18 00:42] LABS: UREA NITROGEN, BLOOD 68 mg/dL (7-18)
[2023-01-18 00:43] LABS: CREATININE 5.8 mg/dL (0.6-1.3)
[2023-01-18] MEDS: BLOOD GLUCOSE MONITORING 1 DEV DEV FS SCH ×12 (01:05→20:36)
[2023-01-18] MEDS: NACL 0.9% 1,000 ML IV SCH ×2 (01:10→06:10)
[2023-01-18] MEDS ORDERED: KCL 20 MEQ IN 100 mL PREMIX 100 ML IV ONE (01:20)
[2023-01-18 04:14] LABS: BASOPHILS # (AUTO) 0.1 K/uL (0.00-0.22); BASOPHILS % (AUTO) 1.4 % (0.0-2.0); EOSINOPHILS # (AUTO) 0.3 K/uL (0-0.4); EOSINOPHILS % (AUTO) 5.5 % (0.0-4.0); LYMPHOCYTES # (AUTO) 1.7 K/uL (2.5-16.5); MEAN CORPUSCULAR HEMOGLOBIN 33 pg (27-31); MEAN CORPUSCULAR HGB CONC 33 g/dL (33-37); MEAN CORPUSCULAR VOLUME 99.5 fL (80-94); MONOCYTES # (AUTO) 0.5 K/uL (0.8-1.0); MONOCYTES % (AUTO) 8.1 % (1.7-9.3); NEUTROPHILS # (AUTO) 3.4 K/uL (1.8-7.7); PLATELET COUNT (AUTO) 182 K/uL (140-450); RED BLOOD CELL COUNT(AUTO) 3.32 MIL/uL (4.20-5.40); WHITE BLOOD COUNT (AUTO) 5.9 K/uL (4.8-10.8)
[2023-01-18 04:40] LABS: MAGNESIUM 1.8 mg/dL (1.8-2.4); PHOSPHORUS 4.2 mg/dL (2.5-4.9)
[2023-01-18 04:49] LABS: ANION GAP 15.9 (8-16); CALCIUM 8.8 mg/dL (8.5-10.1); CARBON DIOXIDE 23.9 mmol/L (21-32); CHLORIDE 98 mmol/L (98-107); GLUCOSE 149 mg/dL (74-106); POTASSIUM 3.8 mmol/L (3.5-5.1); SODIUM SERUM 134 mmol/L (136-145)
[2023-01-18 04:55] LABS: CREATININE 5.8 mg/dL (0.6-1.3); UREA NITROGEN, BLOOD 65 mg/dL (7-18)
[2023-01-18] MEDS: DEXT 5% / NACL 0.45% 1,000 ML IV SCH ×2 (04:55→10:19)
[2023-01-18 07:49] LABS: BLOOD GAS BASE EXCESS -2.1 mmol/L (-2.0-2.0); BLOOD GAS HCO3 22.4 mmol/L (22-26); BLOOD GAS PH 7.399 (7.35-7.45); BLOOD GAS PO2 93.8 mmHg (75-100)
[2023-01-18 07:50] LABS: BLOOD GAS O2 SAT% 96.9 % (92.0-98.5)
[2023-01-18 08:12] LABS: CALCIUM 8.9 mg/dL (8.5-10.1); CARBON DIOXIDE 27.1 mmol/L (21-32); CHLORIDE 100 mmol/L (98-107); GLUCOSE 120 mg/dL (74-106); POTASSIUM 4.1 mmol/L (3.5-5.1); SODIUM SERUM 135 mmol/L (136-145)
[2023-01-18 08:17] LABS: CREATININE 5.8 mg/dL (0.6-1.3); MAGNESIUM 1.8 mg/dL (1.8-2.4); PHOSPHORUS 3.9 mg/dL (2.5-4.9); UREA NITROGEN, BLOOD 63 mg/dL (7-18)
[2023-01-18] MEDS: PANTOPRAZOLE 40 MG INJ VIAL IVP SCH (12:47)
[2023-01-18] MEDS ORDERED: THERAHONEY GEL 42.5 GM TP PRN (14:50)
[2023-01-18] MEDS: INSULIN LISPRO SLIDING SCALE 100 UNITS/ML VIAL SUBQ PRN (16:52)
[2023-01-19] VITALS (7 sets, daily range): BP systolic 106–177; BP diastolic 60–73; PULSE 85–91; RESP 16–20; TEMP 97.5–98.5; O2SAT 95–99
[2023-01-19] MEDS: BLOOD GLUCOSE MONITORING 1 DEV DEV FS SCH ×7 (00:15→23:48)
[2023-01-19] MEDS: HYDRAGUARD CREAM TP SCH ×2 (01:00→13:11)
[2023-01-19] MEDS: INSULIN LISPRO SLIDING SCALE 100 UNITS/ML VIAL SUBQ PRN ×3 (05:41→16:29)
[2023-01-19 06:08] LABS: ANION GAP 17.6 (8-16); CALCIUM 9.7 mg/dL (8.5-10.1); CARBON DIOXIDE 23.8 mmol/L (21-32); CHLORIDE 98 mmol/L (98-107); CREATININE 3.7 mg/dL (0.6-1.3); GLUCOSE 375 mg/dL (74-106); POTASSIUM 4.4 mmol/L (3.5-5.1); SODIUM SERUM 135 mmol/L (136-145); UREA NITROGEN, BLOOD 32 mg/dL (7-18)
[2023-01-19] MEDS: INSULIN LANTUS 100 UNITS/ML 10 ML VIAL SUBQ SCH (08:51)
[2023-01-19] MEDS: LEVOTHYROXINE 0.075 MG TAB PO SCH (08:58)
[2023-01-19] MEDS: ATORVASTATIN 20 MG TAB PO SCH (08:58)
[2023-01-19] MEDS: amLODIPine 5 MG TAB PO SCH (08:59)
[2023-01-19] MEDS: GABAPENTIN 100 MG CAP PO SCH ×2 (08:59→21:00)
[2023-01-19] MEDS: PARoxetine 10 MG TAB PO SCH (08:59)
[2023-01-19] MEDS ORDERED: INSULIN LANTUS 100 UNITS/ML 10 ML VIAL SUBQ SCH (09:00)
[2023-01-19] MEDS: PANTOPRAZOLE 40 MG INJ VIAL IVP SCH (09:00)
[2023-01-19 10:07] LABS: HEPATITIS A ANTIBODY IGM Negative (Negative); HEPATITIS A ANTIBODY TOTAL Negative (Negative); HEPATITIS B CORE AB TOTAL Negative (Negative); HEPATITIS B CORE, IGM Negative (Negative); HEPATITIS B SURFACE ANTIBODY Reactive (.); HEPATITIS B SURFACE ANTIGEN Negative (Negative); HEPATITIS C VIRUS ANTIBODY Non Reactive (Non Reactive)
[2023-01-19] MEDS: FOAM DRESSING TP SCH (13:11)
[2023-01-19] MEDS: THERAHONEY GEL 42.5 GM TP SCH (13:12)
[2023-01-19] MEDS ORDERED: hydrALAZINE 10 MG TAB PO PRN (21:00)
[2023-01-19] MEDS ORDERED: hydrALAZINE 20 MG/ML VIAL IVP PRN (21:55)
[2023-01-19] MEDS ORDERED: hydrALAZINE 20 MG/ML VIAL IVP ONE (22:00)
[2023-01-20] VITALS (7 sets, daily range): BP systolic 126–175; BP diastolic 55–79; PULSE 90–103; RESP 9–20; TEMP 97–98.6; O2SAT 96–99
[2023-01-20] MEDS: HYDRAGUARD CREAM TP SCH ×2 (01:05→13:05)
[2023-01-20] MEDS: BLOOD GLUCOSE MONITORING 1 DEV DEV FS SCH ×6 (04:05→23:44)
[2023-01-20] MEDS: INSULIN LISPRO SLIDING SCALE 100 UNITS/ML VIAL SUBQ PRN ×5 (04:10→21:11)
[2023-01-20] MEDS: LEVOTHYROXINE 0.075 MG TAB PO SCH (07:05)
[2023-01-20] MEDS: PANTOPRAZOLE 40 MG INJ VIAL IVP SCH (08:23)
[2023-01-20] MEDS: amLODIPine 5 MG TAB PO SCH (08:23)
[2023-01-20] MEDS: GABAPENTIN 100 MG CAP PO SCH ×3 (08:23→21:18)
[2023-01-20] MEDS: PARoxetine 10 MG TAB PO SCH (08:23)
[2023-01-20] MEDS: ATORVASTATIN 20 MG TAB PO SCH (08:23)
[2023-01-20] MEDS: INSULIN LANTUS 100 UNITS/ML 10 ML VIAL SUBQ SCH (08:25)
[2023-01-20] MEDS ORDERED: VANCOMYCIN PER PHARMACY MC PRN (09:40)
[2023-01-20 12:10] LABS: BASOPHILS # (AUTO) 0.1 K/uL (0.00-0.22); BASOPHILS % (AUTO) 1.4 % (0.0-2.0); EOSINOPHILS # (AUTO) 0.2 K/uL (0-0.4); EOSINOPHILS % (AUTO) 3.6 % (0.0-4.0); HEMATOCRIT 35.4 % (36-48); HEMOGLOBIN 11.9 g/dL (12.0-16.0); LYMPHOCYTES # (AUTO) 0.8 K/uL (2.5-16.5); LYMPHOCYTES % (AUTO) 16.4 % (20.5-51.1); MEAN CORPUSCULAR HEMOGLOBIN 33 pg (27-31); MEAN CORPUSCULAR HGB CONC 34 g/dL (33-37); MEAN CORPUSCULAR VOLUME 99.5 fL (80-94); MONOCYTES # (AUTO) 0.3 K/uL (0.8-1.0); MONOCYTES % (AUTO) 5.8 % (1.7-9.3); NEUTROPHILS # (AUTO) 3.7 K/uL (1.8-7.7); NEUTROPHILS % (AUTO) 72.8 % (42.2-75.2); PLATELET COUNT (AUTO) 187 K/uL (140-450); RED BLOOD CELL COUNT(AUTO) 3.56 MIL/uL (4.20-5.40); RED CELL DISTRIBUTION WIDTH 13.1 % (11.6-13.7); WHITE BLOOD COUNT (AUTO) 5.1 K/uL (4.8-10.8)
[2023-01-20 12:19] LABS: ANION GAP 13.9 (8-16); CALCIUM 9.4 mg/dL (8.5-10.1); CARBON DIOXIDE 26.9 mmol/L (21-32); CHLORIDE 99 mmol/L (98-107); GLUCOSE 232 mg/dL (74-106); POTASSIUM 3.8 mmol/L (3.5-5.1); SODIUM SERUM 136 mmol/L (136-145); UREA NITROGEN, BLOOD 36 mg/dL (7-18)
[2023-01-20 12:22] LABS: CREATININE 4.4 mg/dL (0.6-1.3)
[2023-01-20] MEDS: THERAHONEY GEL 42.5 GM TP SCH (13:05)
[2023-01-20] MEDS: FOAM DRESSING TP SCH (13:05)
[2023-01-20] MEDS ORDERED: VANCOMYCIN 750 MG in DEXTROSE 5% 250 ML IV SCH (14:00)
[2023-01-20] MEDS: LABETALOL 200 MG TAB PO SCH (21:17)
[2023-01-21] VITALS: BP 132/69; PULSE 88; PULSE 92; RESP 20; TEMP 96.6; O2SAT 96
[2023-01-21] MEDS: HYDRAGUARD CREAM TP SCH ×2 (01:48→13:00)
[2023-01-21 04:00] VITALS: BP 128/57; PULSE 74; PULSE 75; RESP 18; TEMP 96.8; O2SAT 96
[2023-01-21] MEDS: BLOOD GLUCOSE MONITORING 1 DEV DEV FS SCH ×3 (04:58→11:42)
[2023-01-21] MEDS: INSULIN LISPRO SLIDING SCALE 100 UNITS/ML VIAL SUBQ PRN (05:01)
[2023-01-21] MEDS: LEVOTHYROXINE 0.075 MG TAB PO SCH (07:00)
[2023-01-21 08:00] VITALS: BP 140/66; PULSE 61; PULSE 83; RESP 17; TEMP 97; O2SAT 98
[2023-01-21] MEDS: amLODIPine 5 MG TAB PO SCH (09:00)
[2023-01-21] MEDS: LABETALOL 200 MG TAB PO SCH (09:00)
[2023-01-21] MEDS: ATORVASTATIN 20 MG TAB PO SCH (09:00)
[2023-01-21] MEDS: GABAPENTIN 100 MG CAP PO SCH (09:00)
[2023-01-21] MEDS: PANTOPRAZOLE 40 MG INJ VIAL IVP SCH (09:00)
[2023-01-21] MEDS: PARoxetine 10 MG TAB PO SCH (09:00)
[2023-01-21] MEDS ORDERED: HALOPERIDOL IM 5 MG/ML VIAL IM SCH (09:01)
[2023-01-21 09:59] LABS: HEMATOCRIT 30.8 % (36-48); HEMOGLOBIN 10.4 g/dL (12.0-16.0); MEAN CORPUSCULAR HEMOGLOBIN 34 pg (27-31); MEAN CORPUSCULAR HGB CONC 34 g/dL (33-37); MEAN CORPUSCULAR VOLUME 99.5 fL (80-94); PLATELET COUNT (AUTO) 164 K/uL (140-450); RED CELL DISTRIBUTION WIDTH 13.2 % (11.6-13.7); WHITE BLOOD COUNT (AUTO) 3.4 K/uL (4.8-10.8)
[2023-01-21 10:10] LABS: ANION GAP 11.5 (8-16); CALCIUM 8.7 mg/dL (8.5-10.1); CARBON DIOXIDE 27.2 mmol/L (21-32); CHLORIDE 104 mmol/L (98-107); CREATININE 2.7 mg/dL (0.6-1.3); GLUCOSE 142 mg/dL (74-106); POTASSIUM 3.7 mmol/L (3.5-5.1); SODIUM SERUM 139 mmol/L (136-145); UREA NITROGEN, BLOOD 25 mg/dL (7-18)
[2023-01-21 10:35] LABS: EOSINOPHILS % (MANUAL) 6 % (0-4); LYMPHOCYTES % (MANUAL) 22 % (20-46); MONOCYTES % (MANUAL) 6 % (5-12)
[2023-01-21 12:00] VITALS: BP 136/73; PULSE 81; PULSE 86; RESP 18; TEMP 98.2; O2SAT 99
[2023-01-21] MEDS ORDERED: LANTUS SUBQ (12:13)
[2023-01-21] MEDS ORDERED: CIPR250T6 PO (12:13)
[2023-01-21] MEDS: FOAM DRESSING TP SCH (13:00)
[2023-01-21] MEDS: THERAHONEY GEL 42.5 GM TP SCH (13:00)
[2023-01-21 14:40] VITALS: BP 136/73; PULSE 86; RESP 18; TEMP 98.2
== END 2023-01-21 15:50 | DRG 871 ==
LOC: MED 15:13 → MTU 17:08 → MIC 17:28 → MTU 01-18 15:10
PROVIDERS: ADMIT General Practice; ATTEND General Practice
PROC: 5A1D70Z Performance of Urinary Filtration, Intermittent, Less than 6 Hours Per Day (ICD-10-PCS; principal; 2023-01-18)
PROC: 5A1D70Z Performance of Urinary Filtration, Intermittent, Less than 6 Hours Per Day (ICD-10-PCS; 2023-01-18)
PROC: 5A1D70Z Performance of Urinary Filtration, Intermittent, Less than 6 Hours Per Day (ICD-10-PCS; 2023-01-21)
DX: A41.9 Sepsis, unspecified organism (principal); E11.10 Type 2 diabetes mellitus with ketoacidosis without coma; N17.0 Acute kidney failure with tubular necrosis; I50.33 Acute on chronic diastolic (congestive) heart failure; N18.6 End stage renal disease; N39.0 Urinary tract infection, site not specified; E87.1 Hypo-osmolality and hyponatremia; I13.2 Hypertensive heart and chronic kidney disease with heart failure and with stage 5 chronic kidney disease, or end stage renal disease; K21.9 Gastro-esophageal reflux disease without esophagitis; E03.9 Hypothyroidism, unspecified; F03.90 Unspecified dementia, unspecified severity, without behavioral disturbance, psychotic disturbance, mood disturbance, and anxiety; D50.9 Iron deficiency anemia, unspecified; E11.22 Type 2 diabetes mellitus with diabetic chronic kidney disease; Z99.2 Dependence on renal dialysis; Z88.8 Allergy status to other drugs, medicaments and biological substances; Z79.899 Other long term (current) drug therapy; Z79.4 Long term (current) use of insulin
CPT/HCPCS: 36415; 36600; 71045; 80048; 80053; 81001; 82803; 82948; 83036; 83605; 83735; 83880; 84100; 84436; 84439; 84443; 84479; 84484; 85025; 86704; 86706; 86708; 86709; 86803; 87040; 87081; 87086; 87340; 93005; 96361; 96365; 97112; 97530; 99291; C9113; J0360; J0696; J1815; J3370; J3480; J7060

== ENCOUNTER 2023-07-31 00:55 | Inpatient (IN) | payer OTHER ==
[~2023-07-31] VITALS: Ht 165.1 cm; Wt 56.7 kg
[2023-07-31] VITALS (9 sets, daily range): BP systolic 125–144; BP diastolic 43–84; PULSE 75–95; RESP 16–19; TEMP 96.7–99.2; O2SAT 96–100
[~2023-07-31 00:55] MED LIST changes: -AMOX-999 PO; +CIPR250T6 PO; -CLON0.1T42 PO; -INSU100S22 SUBQ; +LANTUS SUBQ
[2023-07-31] MEDS: NACL 0.9% 1,000 ML IV ONE (03:59)
[2023-07-31 04:54] LABS: ANION GAP 17.8 (8-16); CARBON DIOXIDE 21.6 mmol/L (21-32); CHLORIDE 99 mmol/L (98-107); GLUCOSE 662 mg/dL (74-106); POTASSIUM 4.4 mmol/L (3.5-5.1); SODIUM SERUM 134 mmol/L (136-145)
[2023-07-31 04:55] LABS: CREATININE 6.3 mg/dL (0.6-1.3); UREA NITROGEN, BLOOD 92 mg/dL (7-18)
[2023-07-31 04:56] LABS: ALANINE AMINOTRANSFERASE 6 U/L (12-78); ALBUMIN 2.4 g/dL (3.4-5.0); ALKALINE PHOSPHATASE 99 U/L (50-136); ASPARTATE AMINOTRANSFERASE 10 U/L (15-37); TOTAL BILIRUBIN 0.4 mg/dL (0.0-1.0)
[2023-07-31 04:57] LABS: ACETONE, SERUM Large (NEGATIVE)
[2023-07-31 04:58] LABS: WHITE BLOOD COUNT (AUTO) 9.9 K/uL (4.8-10.8)
[2023-07-31 04:59] LABS: HEMATOCRIT 30.1 % (36-48); MEAN CORPUSCULAR HEMOGLOBIN 34 pg (27-31); MEAN CORPUSCULAR HGB CONC 33 g/dL (33-37); MEAN CORPUSCULAR VOLUME 103.4 fL (80-94); RED BLOOD CELL COUNT(AUTO) 2.91 MIL/uL (4.20-5.40)
[2023-07-31 05:00] LABS: BASOPHILS % (AUTO) 0.7 % (0.0-2.0); EOSINOPHILS % (AUTO) 0.8 % (0.0-4.0); LYMPHOCYTES % (AUTO) 6.4 % (20.5-51.1); MONOCYTES % (AUTO) 4.8 % (1.7-9.3); NEUTROPHILS % (AUTO) 88.3 % (42.2-75.2); PLATELET COUNT (AUTO) 259 K/uL (140-450); RED CELL DISTRIBUTION WIDTH 14.3 % (11.6-13.7)
[2023-07-31 05:01] LABS: BASOPHILS # (AUTO) 0.7 K/uL (0.00-0.22); EOSINOPHILS # (AUTO) 0.8 K/uL (0-0.4); LYMPHOCYTES # (AUTO) 6.4 K/uL (2.5-16.5); MONOCYTES # (AUTO) 4.8 K/uL (0.8-1.0)
[2023-07-31] MEDS ORDERED: CEFEPIME 2,000 MG VIAL IV ONE (05:03)
[2023-07-31] MEDS: CEFEPIME 2,000 MG in DEXTROSE 5% 100 ML IV ONE (05:19)
[2023-07-31] MEDS ORDERED: ACETAMINOPHEN 325 MG TAB PO PRN (05:25)
[2023-07-31] MEDS ORDERED: ALBUTEROL SULFATE/IPRATROPIU 3 ML SOL IH PRN (05:25)
[2023-07-31] MEDS ORDERED: DEXTROSE 50% 50 ML SYR IVP PRN (05:25)
[2023-07-31] MEDS: BLOOD GLUCOSE MONITORING 1 DEV DEV FS SCH (07:49)
[2023-07-31] MEDS: INSULIN LISPRO SLIDING SCALE 100 UNITS/ML VIAL SUBQ PRN (07:49)
[2023-07-31] MEDS: SEVELAMER CARBONATE 800 MG TAB PO SCH (08:29)
[2023-07-31] MEDS: FOLIC ACID 1 MG TAB PO SCH (09:00)
[2023-07-31] MEDS: LEVOTHYROXINE 0.05 MG TAB PO SCH (09:00)
[2023-07-31] MEDS: CHOLECALCIFEROL 1,000 IU TAB PO SCH (09:00)
[2023-07-31] MEDS: amLODIPine 5 MG TAB PO SCH (09:00)
[2023-07-31] MEDS: PARoxetine 20 MG TAB PO SCH (09:00)
[2023-07-31] MEDS: GABAPENTIN 100 MG CAP PO SCH (09:00)
[2023-07-31] MEDS: DOCUSATE SODIUM 100 MG GELCAP PO SCH (09:00)
[2023-07-31] MEDS: ATORVASTATIN 20 MG TAB PO SCH (09:00)
[2023-07-31] MEDS: PANTOPRAZOLE 40 MG TABEC PO SCH (09:00)
[2023-07-31] MEDS: HYDROcodone/APAP 5/325 MG 1 TAB TAB PO PRN (09:47)
[2023-07-31] MEDS: INSULIN LANTUS 100 UNITS/ML 10 ML VIAL SUBQ SCH (09:53)
[2023-07-31] MEDS: PIPERACILLIN/TAZOBACTAM 2.25 GM in DEXTROSE 5% 50 ML IV SCH (12:40)
[2023-07-31] MEDS: hydrALAZINE 10 MG TAB PO SCH (12:58)
[2023-07-31] MEDS: SENNA 8.6 MG TAB PO SCH (20:17)
[2023-08-01] VITALS (8 sets, daily range): BP systolic 109–131; BP diastolic 41–97; PULSE 69–88; RESP 18–19; TEMP 96.8–98.6; O2SAT 95–100
[2023-08-01] MEDS: LEVOTHYROXINE 0.075 MG TAB PO SCH (05:31)
[2023-08-01 07:50] LABS: BASOPHILS # (AUTO) 0.1 K/uL (0.00-0.22); BASOPHILS % (AUTO) 0.8 % (0.0-2.0); EOSINOPHILS # (AUTO) 0.2 K/uL (0-0.4); EOSINOPHILS % (AUTO) 2.9 % (0.0-4.0); HEMATOCRIT 30.7 % (36-48); HEMOGLOBIN 10.5 g/dL (12.0-16.0); LYMPHOCYTES # (AUTO) 1.1 K/uL (2.5-16.5); MEAN CORPUSCULAR HEMOGLOBIN 34 pg (27-31); MEAN CORPUSCULAR HGB CONC 34 g/dL (33-37); MEAN CORPUSCULAR VOLUME 100.7 fL (80-94); MONOCYTES # (AUTO) 0.6 K/uL (0.8-1.0); MONOCYTES % (AUTO) 7.6 % (1.7-9.3); NEUTROPHILS # (AUTO) 5.7 K/uL (1.8-7.7); NEUTROPHILS % (AUTO) 74.7 % (42.2-75.2); PLATELET COUNT (AUTO) 239 K/uL (140-450); RED BLOOD CELL COUNT(AUTO) 3.04 MIL/uL (4.20-5.40); RED CELL DISTRIBUTION WIDTH 13.9 % (11.6-13.7); WHITE BLOOD COUNT (AUTO) 7.6 K/uL (4.8-10.8)
[2023-08-01 08:16] LABS: ANION GAP 13.5 (8-16); CALCIUM 8.7 mg/dL (8.5-10.1); CARBON DIOXIDE 27.5 mmol/L (21-32); CHLORIDE 100 mmol/L (98-107); CREATININE 3.4 mg/dL (0.6-1.3); GLUCOSE 138 mg/dL (74-106); SODIUM SERUM 137 mmol/L (136-145); UREA NITROGEN, BLOOD 36 mg/dL (7-18)
[2023-08-02 04:00] VITALS: BP 140/51; PULSE 73; RESP 18; TEMP 97.8; O2SAT 96
[2023-08-02 07:00] LABS: BASOPHILS # (AUTO) 0.1 K/uL (0.00-0.22); EOSINOPHILS # (AUTO) 0.3 K/uL (0-0.4); EOSINOPHILS % (AUTO) 4.4 % (0.0-4.0); HEMATOCRIT 32.7 % (36-48); LYMPHOCYTES # (AUTO) 0.8 K/uL (2.5-16.5); LYMPHOCYTES % (AUTO) 13.7 % (20.5-51.1); MEAN CORPUSCULAR HEMOGLOBIN 34 pg (27-31); MEAN CORPUSCULAR HGB CONC 34 g/dL (33-37); MEAN CORPUSCULAR VOLUME 101.7 fL (80-94); MONOCYTES # (AUTO) 0.4 K/uL (0.8-1.0); MONOCYTES % (AUTO) 7.5 % (1.7-9.3); NEUTROPHILS # (AUTO) 4.2 K/uL (1.8-7.7); NEUTROPHILS % (AUTO) 73.4 % (42.2-75.2); PLATELET COUNT (AUTO) 244 K/uL (140-450); RED BLOOD CELL COUNT(AUTO) 3.22 MIL/uL (4.20-5.40); RED CELL DISTRIBUTION WIDTH 14.2 % (11.6-13.7); WHITE BLOOD COUNT (AUTO) 5.8 K/uL (4.8-10.8)
[2023-08-02 07:13] LABS: ANION GAP 14.7 (8-16); CALCIUM 8.8 mg/dL (8.5-10.1); CARBON DIOXIDE 27.6 mmol/L (21-32); CHLORIDE 101 mmol/L (98-107); GLUCOSE 72 mg/dL (74-106); POTASSIUM 4.3 mmol/L (3.5-5.1); SODIUM SERUM 139 mmol/L (136-145); UREA NITROGEN, BLOOD 38 mg/dL (7-18)
[2023-08-02 08:12] VITALS: O2SAT 96
[2023-08-02 12:32] VITALS: BP 144/90; PULSE 70; RESP 20; TEMP 96.2; O2SAT 96
[2023-08-02] MEDS ORDERED: AMOX1TAB8 PO (12:33)
[2023-08-02] MEDS ORDERED: LORazepam 2 MG/ML VIAL IVP SCH (16:21)
[2023-08-02 19:30] VITALS: O2SAT 96
[2023-08-02 20:00] VITALS: BP 138/88; PULSE 68; RESP 20; TEMP 97.6; O2SAT 96
[2023-08-03 04:00] VITALS: BP 146/76; PULSE 68; PULSE 70; RESP 18; TEMP 98.2; O2SAT 97
[2023-08-03 08:00] VITALS: PULSE 86; RESP 18; O2SAT 99
[2023-08-03 11:23] VITALS: BP 119/86; PULSE 86; RESP 18; TEMP 97
[2023-08-03 11:34] VITALS: BP 119/86; PULSE 86; RESP 18; TEMP 97
== END 2023-08-03 13:20 | DRG 177 ==
LOC: MED 00:55 → MTU 05:31
PROVIDERS: ADMIT Family Medicine; ATTEND Family Medicine
PROC: 5A1D70Z Performance of Urinary Filtration, Intermittent, Less than 6 Hours Per Day (ICD-10-PCS; principal; 2023-07-31)
DX: J15.69 Pneumonia due to other Gram-negative bacteria (principal); N18.6 End stage renal disease; I12.0 Hypertensive chronic kidney disease with stage 5 chronic kidney disease or end stage renal disease; J15.9 Unspecified bacterial pneumonia; E11.65 Type 2 diabetes mellitus with hyperglycemia; E11.22 Type 2 diabetes mellitus with diabetic chronic kidney disease; K21.9 Gastro-esophageal reflux disease without esophagitis; Z99.2 Dependence on renal dialysis; Z88.8 Allergy status to other drugs, medicaments and biological substances; Z79.4 Long term (current) use of insulin; Z79.2 Long term (current) use of antibiotics; Z79.899 Other long term (current) drug therapy; Z79.51 Long term (current) use of inhaled steroids
CPT/HCPCS: 36415; 71045; 80048; 80053; 82009; 82803; 82948; 83930; 85025; 87040; 87081; 90935; 96361; 96365; 99285; J0692; J1815; J2060; J2543; J7060

== ENCOUNTER 2023-10-23 08:01 | Inpatient (IN) | payer OTHER ==
[2023-10-23] VITALS (12 sets, daily range): BP systolic 135–190; BP diastolic 54–90; PULSE 73–172; RESP 6–20; TEMP 96.7–97.5; O2SAT 95–99
[~2023-10-23] VITALS: Ht 160 cm; Wt 60.9 kg
[~2023-10-23 08:01] MED LIST changes: +ACET-10509 PO; +AMOX1TAB8 PO; +ATI.5 PO; +CHOL25TA2 GT; -CIPR250T6 PO; +HYDR-3233 PO; +INSU100I15 SQ; +LEVO0.0711 PO; +SENN-72 PO; +VITA1TAB44 PO
[2023-10-23 09:12] LABS: BASOPHILS # (AUTO) 0.1 K/uL (0.00-0.22); BASOPHILS % (AUTO) 1.1 % (0.0-2.0); EOSINOPHILS # (AUTO) 0.2 K/uL (0-0.4); EOSINOPHILS % (AUTO) 3.3 % (0.0-4.0); HEMATOCRIT 38.6 % (36-48); HEMOGLOBIN 12.7 g/dL (12.0-16.0); LYMPHOCYTES # (AUTO) 0.6 K/uL (2.5-16.5); LYMPHOCYTES % (AUTO) 13.2 % (20.5-51.1); MEAN CORPUSCULAR HEMOGLOBIN 33 pg (27-31); MEAN CORPUSCULAR HGB CONC 33 g/dL (33-37); MEAN CORPUSCULAR VOLUME 100.7 fL (80-94); MONOCYTES # (AUTO) 0.3 K/uL (0.8-1.0); MONOCYTES % (AUTO) 6.1 % (1.7-9.3); NEUTROPHILS # (AUTO) 3.7 K/uL (1.8-7.7); NEUTROPHILS % (AUTO) 76.3 % (42.2-75.2); PLATELET COUNT (AUTO) 157 K/uL (140-450); RED BLOOD CELL COUNT(AUTO) 3.83 MIL/uL (4.20-5.40); RED CELL DISTRIBUTION WIDTH 14.1 % (11.6-13.7); WHITE BLOOD COUNT (AUTO) 4.8 K/uL (4.8-10.8)
[2023-10-23 09:19] LABS: ALANINE AMINOTRANSFERASE 20 U/L (12-78); ALKALINE PHOSPHATASE 93 U/L (50-136); ASPARTATE AMINOTRANSFERASE 24 U/L (15-37); BILIRUBIN,DIRECT 0.2 mg/dL (0.0-0.3); CARBON DIOXIDE 23.4 mmol/L (21-32); CHLORIDE 94 mmol/L (98-107); LIPASE 368 U/L (16-77); POTASSIUM 5.4 mmol/L (3.5-5.1); SODIUM SERUM 130 mmol/L (136-145); TOTAL BILIRUBIN 0.7 mg/dL (0.0-1.0); TOTAL PROTEIN, SERUM 7.4 g/dL (6.4-8.2)
[2023-10-23 09:21] LABS: GLUCOSE 711 mg/dL (74-106); UREA NITROGEN, BLOOD 62 mg/dL (7-18)
[2023-10-23 09:35] LABS: ACETONE, SERUM Small (NEGATIVE)
[2023-10-23] MEDS: hydrALAZINE 10 MG TAB PO ONE (10:13)
[2023-10-23] MEDS: amLODIPine 5 MG TAB PO ONE (10:13)
[2023-10-23] MEDS: NACL 0.9% 500 ML IV ONE (10:16)
[2023-10-23] MEDS: INSULIN REGULAR, HUMAN 100 UNIT/ML VIAL IV ONE (10:51)
[2023-10-23] MEDS ORDERED: BLOOD GLUCOSE MONITORING 1 DEV DEV FS SCH (11:00)
[2023-10-23] MEDS: BLOOD GLUCOSE MONITORING 1 DEV DEV FS SCH ×2 (11:58→16:31)
[2023-10-23 12:28] LABS: ANION GAP 20.1 (8-16); CALCIUM 9.2 mg/dL (8.5-10.1); CARBON DIOXIDE 22.9 mmol/L (21-32); CHLORIDE 92 mmol/L (98-107); SODIUM SERUM 130 mmol/L (136-145)
[2023-10-23 12:30] LABS: FREE T4 (FREE THYROXINE) 1.15 ng/dL (0.76-1.46); THYROID STIMULATING HORMONE 8.44 uIU/mL (0.34-3.74)
[2023-10-23 12:30] LABS: GLUCOSE 747 mg/dL (74-106); UREA NITROGEN, BLOOD 64 mg/dL (7-18)
[2023-10-23 12:31] LABS: CREATININE 4.8 mg/dL (0.6-1.3)
[2023-10-23 12:33] LABS: ANION GAP 16.6 (8-16); CALCIUM 8.7 mg/dL (8.5-10.1); CARBON DIOXIDE 23.1 mmol/L (21-32); CHLORIDE 97 mmol/L (98-107); GLUCOSE 607 mg/dL (74-106); MAGNESIUM 2.4 mg/dL (1.8-2.4); PHOSPHORUS 4.7 mg/dL (2.5-4.9); POTASSIUM 4.7 mmol/L (3.5-5.1); SODIUM SERUM 132 mmol/L (136-145); UREA NITROGEN, BLOOD 65 mg/dL (7-18)
[2023-10-23 12:34] LABS: CREATININE 4.9 mg/dL (0.6-1.3)
[2023-10-23] MEDS: NACL 0.9% 1,000 ML IV SCH ×2 (13:19→21:55)
[2023-10-23 14:07] LABS: APPEARANCE,URINE CLOUDY (CLEAR); COLOR,URINE STRAW (YELLOW); PH,URINE 7.5 (5.0-9.0)
[2023-10-23 14:08] LABS: BILIRUBIN,URINE 1+ (NEGATIVE); BLOOD, URINE 3+ (NEGATIVE); LEUKOCYTE ESTERASE ,URINE 1+ (NEGATIVE); NITRITE, URINE POSITIVE (NEGATIVE); PROTEIN,URINE 2+ (NEGATIVE); UGLUCOSE 3+ (NEGATIVE)
[2023-10-23 14:21] LABS: BACTERIA,URINE 4+ /HPF (None Seen); ICTOTEST NEGATIVE (NEGATIVE); RBC,URINE >20 (MANY) /HPF (0-5); SQUAMOUS EPITHELIAL CELL,UR 0-3 (FEW) /LPF (0-3 (FEW)); WBC,URINE >25 (MANY) /HPF (0-5)
[2023-10-23] MEDS: INSULIN REGULAR, HUMAN 100 UNIT in NACL 0.9% 100 ML IV SCH (15:15)
[2023-10-23 17:01] LABS: ANION GAP 16.9 (8-16); CALCIUM 8.7 mg/dL (8.5-10.1); CARBON DIOXIDE 23.4 mmol/L (21-32); CHLORIDE 98 mmol/L (98-107); POTASSIUM 4.3 mmol/L (3.5-5.1); SODIUM SERUM 134 mmol/L (136-145)
[2023-10-23 17:05] LABS: MAGNESIUM 2.1 mg/dL (1.8-2.4); PHOSPHORUS 4.3 mg/dL (2.5-4.9)
[2023-10-23 17:08] LABS: CREATININE 4.7 mg/dL (0.6-1.3); GLUCOSE 402 mg/dL (74-106); UREA NITROGEN, BLOOD 62 mg/dL (7-18)
[2023-10-23 20:19] LABS: ANION GAP 17.4 (8-16); CARBON DIOXIDE 23.1 mmol/L (21-32); CHLORIDE 99 mmol/L (98-107); GLUCOSE 180 mg/dL (74-106); POTASSIUM 4.5 mmol/L (3.5-5.1); SODIUM SERUM 135 mmol/L (136-145); UREA NITROGEN, BLOOD 60 mg/dL (7-18)
[2023-10-23 20:23] LABS: MAGNESIUM 2.1 mg/dL (1.8-2.4); PHOSPHORUS 4.2 mg/dL (2.5-4.9)
[2023-10-23 20:24] LABS: CREATININE 4.5 mg/dL (0.6-1.3)
[2023-10-23] MEDS ORDERED: KCL 20 MEQ IN 100 mL PREMIX 200 ML IV PRN (21:55)
[2023-10-23] MEDS: DEXT 5% / NACL 0.45% 500 ML IV SCH (22:07)
[2023-10-24] VITALS (21 sets, daily range): BP systolic 109–161; BP diastolic 39–105; PULSE 73–89; RESP 11–16; TEMP 96.9–97.8; O2SAT 94–100
[2023-10-24 00:41] LABS: ANION GAP 11.1 (8-16); CALCIUM 8.4 mg/dL (8.5-10.1); CARBON DIOXIDE 26.6 mmol/L (21-32); CHLORIDE 102 mmol/L (98-107); GLUCOSE 90 mg/dL (74-106); POTASSIUM 3.7 mmol/L (3.5-5.1); SODIUM SERUM 136 mmol/L (136-145); UREA NITROGEN, BLOOD 59 mg/dL (7-18)
[2023-10-24 00:46] LABS: CREATININE 4.3 mg/dL (0.6-1.3)
[2023-10-24 00:51] LABS: MAGNESIUM 1.9 mg/dL (1.8-2.4); PHOSPHORUS 4.1 mg/dL (2.5-4.9)
[2023-10-24] MEDS ORDERED: COMMUNICATION ORDER MC PRN ×2 (01:40→06:12)
[2023-10-24] MEDS: hydrALAZINE 20 MG/ML VIAL IVP PRN (01:51)
[2023-10-24 05:35] LABS: BASOPHILS # (AUTO) 0.1 K/uL (0.00-0.22); BASOPHILS % (AUTO) 0.9 % (0.0-2.0); EOSINOPHILS # (AUTO) 0.3 K/uL (0-0.4); EOSINOPHILS % (AUTO) 4.2 % (0.0-4.0); HEMATOCRIT 39.7 % (36-48); HEMOGLOBIN 13.2 g/dL (12.0-16.0); MEAN CORPUSCULAR HEMOGLOBIN 33 pg (27-31); MEAN CORPUSCULAR HGB CONC 33 g/dL (33-37); MEAN CORPUSCULAR VOLUME 99.4 fL (80-94); MONOCYTES # (AUTO) 0.4 K/uL (0.8-1.0); MONOCYTES % (AUTO) 6.7 % (1.7-9.3); NEUTROPHILS # (AUTO) 4.5 K/uL (1.8-7.7); NEUTROPHILS % (AUTO) 72.2 % (42.2-75.2); PLATELET COUNT (AUTO) 182 K/uL (140-450); RED BLOOD CELL COUNT(AUTO) 3.99 MIL/uL (4.20-5.40); RED CELL DISTRIBUTION WIDTH 14.1 % (11.6-13.7); WHITE BLOOD COUNT (AUTO) 6.2 K/uL (4.8-10.8)
[2023-10-24 05:57] LABS: ANION GAP 17.1 (8-16); CALCIUM 8.6 mg/dL (8.5-10.1); CARBON DIOXIDE 24.4 mmol/L (21-32); CHLORIDE 100 mmol/L (98-107); GLUCOSE 126 mg/dL (74-106); POTASSIUM 4.5 mmol/L (3.5-5.1); SODIUM SERUM 137 mmol/L (136-145); UREA NITROGEN, BLOOD 55 mg/dL (7-18)
[2023-10-24 05:59] LABS: CREATININE 4.3 mg/dL (0.6-1.3)
[2023-10-24 06:03] LABS: MAGNESIUM 1.9 mg/dL (1.8-2.4); PHOSPHORUS 4.6 mg/dL (2.5-4.9)
[2023-10-24 08:27] LABS: ANION GAP 17.1 (8-16); CALCIUM 8.2 mg/dL (8.5-10.1); CARBON DIOXIDE 21.9 mmol/L (21-32); CHLORIDE 100 mmol/L (98-107); GLUCOSE 139 mg/dL (74-106); SODIUM SERUM 135 mmol/L (136-145); UREA NITROGEN, BLOOD 52 mg/dL (7-18)
[2023-10-24 08:36] LABS: CREATININE 4.3 mg/dL (0.6-1.3)
[2023-10-24 08:37] LABS: MAGNESIUM 1.7 mg/dL (1.8-2.4); PHOSPHORUS 4.1 mg/dL (2.5-4.9)
[2023-10-24] MEDS: DOCUSATE SODIUM 100 MG GELCAP PO SCH (09:00)
[2023-10-24] MEDS: MAG SULF 2000 MG/WATER PREMIX 50 ML IV PRN (09:24)
[2023-10-24] MEDS: VIT-B COMP/VIT-C/FOLIC ACID 1 TAB PO SCH (09:34)
[2023-10-24] MEDS: GABAPENTIN 100 MG CAP PO SCH (09:34)
[2023-10-24] MEDS: ATORVASTATIN 20 MG TAB PO SCH (09:34)
[2023-10-24] MEDS: amLODIPine 5 MG TAB PO SCH (09:35)
[2023-10-24] MEDS: LEVOTHYROXINE 0.05 MG TAB PO SCH (09:35)
[2023-10-24] MEDS: HYDRAGUARD CREAM TP SCH (10:10)
[2023-10-24] MEDS: BLOOD GLUCOSE MONITORING 1 DEV DEV FS SCH ×2 (10:10→20:49)
[2023-10-24] MEDS: PARoxetine 20 MG TAB PO SCH (11:23)
[2023-10-24] MEDS: DEXT 5% / NACL 0.45% 1,000 ML IV SCH (11:30)
[2023-10-24] MEDS: SEVELAMER CARBONATE 800 MG TAB PO SCH (12:00)
[2023-10-24 12:32] LABS: BASOPHILS # (AUTO) 0.1 K/uL (0.00-0.22); BASOPHILS % (AUTO) 1.4 % (0.0-2.0); EOSINOPHILS # (AUTO) 0.1 K/uL (0-0.4); EOSINOPHILS % (AUTO) 2.5 % (0.0-4.0); HEMATOCRIT 37.1 % (36-48); HEMOGLOBIN 12.6 g/dL (12.0-16.0); LYMPHOCYTES # (AUTO) 0.7 K/uL (2.5-16.5); LYMPHOCYTES % (AUTO) 12.4 % (20.5-51.1); MEAN CORPUSCULAR HEMOGLOBIN 33 pg (27-31); MEAN CORPUSCULAR HGB CONC 34 g/dL (33-37); MEAN CORPUSCULAR VOLUME 97.3 fL (80-94); MONOCYTES # (AUTO) 0.2 K/uL (0.8-1.0); MONOCYTES % (AUTO) 3.7 % (1.7-9.3); NEUTROPHILS # (AUTO) 4.3 K/uL (1.8-7.7); PLATELET COUNT (AUTO) 176 K/uL (140-450); RED BLOOD CELL COUNT(AUTO) 3.81 MIL/uL (4.20-5.40); RED CELL DISTRIBUTION WIDTH 13.9 % (11.6-13.7); WHITE BLOOD COUNT (AUTO) 5.4 K/uL (4.8-10.8)
[2023-10-24] MEDS: INSULIN REGULAR, HUMAN 100 UNIT in NACL 0.9% 100 ML IV SCH (12:50)
[2023-10-24 12:52] LABS: ANION GAP 12.1 (8-16); CALCIUM 8.4 mg/dL (8.5-10.1); CARBON DIOXIDE 24.5 mmol/L (21-32); CHLORIDE 102 mmol/L (98-107); CREATININE 2.8 mg/dL (0.6-1.3); GLUCOSE 114 mg/dL (74-106); POTASSIUM 3.6 mmol/L (3.5-5.1); SODIUM SERUM 135 mmol/L (136-145); UREA NITROGEN, BLOOD 33 mg/dL (7-18)
[2023-10-24 12:57] LABS: MAGNESIUM 2.1 mg/dL (1.8-2.4); PHOSPHORUS 2.8 mg/dL (2.5-4.9)
[2023-10-24] MEDS: hydrALAZINE 10 MG TAB PO SCH (13:00)
[2023-10-24] MEDS: ONDANSETRON 4 MG/2 ML VIAL IVP PRN (13:05)
[2023-10-24] MEDS ORDERED: NOREPINEPHRINE 4 MG in DEXTROSE 5% 250 ML IV PRN (13:45)
[2023-10-24 16:23] LABS: ANION GAP 12.3 (8-16); CALCIUM 8.6 mg/dL (8.5-10.1); CARBON DIOXIDE 26.5 mmol/L (21-32); CHLORIDE 101 mmol/L (98-107); CREATININE 2.5 mg/dL (0.6-1.3); GLUCOSE 95 mg/dL (74-106); POTASSIUM 3.8 mmol/L (3.5-5.1); SODIUM SERUM 136 mmol/L (136-145); UREA NITROGEN, BLOOD 22 mg/dL (7-18)
[2023-10-24 16:28] LABS: MAGNESIUM 2.1 mg/dL (1.8-2.4); PHOSPHORUS 2.9 mg/dL (2.5-4.9)
[2023-10-24] MEDS: INSULIN LANTUS 100 UNITS/ML 10 ML VIAL SUBQ SCH ×2 (16:58→20:55)
[2023-10-24 18:42] LABS: HEMOGLOBIN A1C 8.5 % (4.8-5.6)
[2023-10-24 18:43] LABS: T4 (THYROXINE) 8.2 ug/dL (4.5 - 12.0)
[2023-10-24] MEDS: INSULIN LISPRO SLIDING SCALE 100 UNITS/ML VIAL SUBQ PRN (20:55)
[2023-10-25] VITALS: BP 118/47; PULSE 84; RESP 14; TEMP 97.5; O2SAT 97
[2023-10-25 04:00] VITALS: BP 134/62; PULSE 76; RESP 14; TEMP 97.6; O2SAT 96
[2023-10-25 05:29] LABS: BASOPHILS # (AUTO) 0.1 K/uL (0.00-0.22); BASOPHILS % (AUTO) 0.9 % (0.0-2.0); EOSINOPHILS # (AUTO) 0.2 K/uL (0-0.4); EOSINOPHILS % (AUTO) 2.7 % (0.0-4.0); HEMATOCRIT 38.5 % (36-48); HEMOGLOBIN 12.9 g/dL (12.0-16.0); LYMPHOCYTES # (AUTO) 1.6 K/uL (2.5-16.5); LYMPHOCYTES % (AUTO) 22.2 % (20.5-51.1); MEAN CORPUSCULAR HEMOGLOBIN 33 pg (27-31); MEAN CORPUSCULAR HGB CONC 33 g/dL (33-37); MEAN CORPUSCULAR VOLUME 98.5 fL (80-94); MONOCYTES # (AUTO) 0.4 K/uL (0.8-1.0); MONOCYTES % (AUTO) 5.3 % (1.7-9.3); NEUTROPHILS # (AUTO) 4.9 K/uL (1.8-7.7); NEUTROPHILS % (AUTO) 68.9 % (42.2-75.2); PLATELET COUNT (AUTO) 182 K/uL (140-450); RED BLOOD CELL COUNT(AUTO) 3.91 MIL/uL (4.20-5.40); RED CELL DISTRIBUTION WIDTH 14.2 % (11.6-13.7); WHITE BLOOD COUNT (AUTO) 7.1 K/uL (4.8-10.8)
[2023-10-25 05:41] LABS: ANION GAP 12.1 (8-16); CALCIUM 8.7 mg/dL (8.5-10.1); CARBON DIOXIDE 28.9 mmol/L (21-32); CHLORIDE 100 mmol/L (98-107); GLUCOSE 96 mg/dL (74-106); SODIUM SERUM 137 mmol/L (136-145); UREA NITROGEN, BLOOD 26 mg/dL (7-18)
[2023-10-25 08:00] VITALS: BP 144/46; PULSE 84; RESP 19; TEMP 97.4; TEMP 97.6; O2SAT 98
[2023-10-25 12:00] VITALS: BP 114/43; PULSE 79; RESP 16; TEMP 97.4; O2SAT 96
[2023-10-25 16:49] VITALS: BP 135/67; PULSE 81; PULSE 83; RESP 17; TEMP 97.8; O2SAT 93; O2SAT 97
[2023-10-25 20:00] VITALS: BP 136/49; PULSE 79; RESP 18; TEMP 97.9; O2SAT 92
[2023-10-25] MEDS: MUPIROCIN CA NASAL 2% 1GM TUBE NS SCH (20:25)
[2023-10-26] VITALS (9 sets, daily range): BP systolic 118–145; BP diastolic 53–75; PULSE 73–87; RESP 16–18; TEMP 97.8–98; O2SAT 92–96
[2023-10-26] MEDS: LEVOTHYROXINE 0.075 MG TAB PO SCH (06:24)
[2023-10-26] MEDS: DEXTROSE 50% 50 ML SYR IVP PRN (06:51)
[2023-10-26 06:56] LABS: BASOPHILS # (AUTO) 0.1 K/uL (0.00-0.22); BASOPHILS % (AUTO) 1.1 % (0.0-2.0); EOSINOPHILS # (AUTO) 0.2 K/uL (0-0.4); EOSINOPHILS % (AUTO) 4.7 % (0.0-4.0); HEMATOCRIT 33.9 % (36-48); HEMOGLOBIN 11.3 g/dL (12.0-16.0); LYMPHOCYTES # (AUTO) 1.4 K/uL (2.5-16.5); LYMPHOCYTES % (AUTO) 28.7 % (20.5-51.1); MEAN CORPUSCULAR HEMOGLOBIN 33 pg (27-31); MEAN CORPUSCULAR HGB CONC 33 g/dL (33-37); MEAN CORPUSCULAR VOLUME 98.5 fL (80-94); MONOCYTES # (AUTO) 0.4 K/uL (0.8-1.0); MONOCYTES % (AUTO) 9.5 % (1.7-9.3); NEUTROPHILS # (AUTO) 2.6 K/uL (1.8-7.7); PLATELET COUNT (AUTO) 172 K/uL (140-450); RED BLOOD CELL COUNT(AUTO) 3.44 MIL/uL (4.20-5.40); RED CELL DISTRIBUTION WIDTH 14.4 % (11.6-13.7); WHITE BLOOD COUNT (AUTO) 4.7 K/uL (4.8-10.8)
[2023-10-26 07:15] LABS: ANION GAP 11.6 (8-16); CALCIUM 8.4 mg/dL (8.5-10.1); CARBON DIOXIDE 27.5 mmol/L (21-32); CHLORIDE 102 mmol/L (98-107); CREATININE 3.6 mg/dL (0.6-1.3); GLUCOSE 55 mg/dL (74-106); POTASSIUM 4.1 mmol/L (3.5-5.1); SODIUM SERUM 137 mmol/L (136-145); UREA NITROGEN, BLOOD 35 mg/dL (7-18)
[2023-10-27] VITALS: BP 122/60; PULSE 74; PULSE 75; RESP 18; TEMP 97.8; O2SAT 94
[2023-10-27 04:00] VITALS: BP 149/59; PULSE 71; RESP 18; TEMP 97.6; O2SAT 95
[2023-10-27 08:00] VITALS: BP 155/60; PULSE 71; RESP 18; TEMP 97.1; O2SAT 96
[2023-10-27 12:00] VITALS: BP 148/68; PULSE 72; PULSE 76; RESP 18; TEMP 97.9; O2SAT 97
== END 2023-10-27 15:50 | DRG 637 ==
LOC: MED 08:01 → MTU 11:39 → MIC 11:50 → MTU 10-25 06:21
PROVIDERS: ADMIT Internal Medicine; ATTEND Internal Medicine
PROC: 5A1D70Z Performance of Urinary Filtration, Intermittent, Less than 6 Hours Per Day (ICD-10-PCS; 2023-10-24)
PROC: 5A1D70Z Performance of Urinary Filtration, Intermittent, Less than 6 Hours Per Day (ICD-10-PCS; principal; 2023-10-26)
DX: E11.10 Type 2 diabetes mellitus with ketoacidosis without coma (principal); I21.A1 Myocardial infarction type 2; N18.6 End stage renal disease; I16.1 Hypertensive emergency; I13.2 Hypertensive heart and chronic kidney disease with heart failure and with stage 5 chronic kidney disease, or end stage renal disease; I50.9 Heart failure, unspecified; E11.22 Type 2 diabetes mellitus with diabetic chronic kidney disease; E11.65 Type 2 diabetes mellitus with hyperglycemia; E03.9 Hypothyroidism, unspecified; F03.90 Unspecified dementia, unspecified severity, without behavioral disturbance, psychotic disturbance, mood disturbance, and anxiety; E78.5 Hyperlipidemia, unspecified; K21.9 Gastro-esophageal reflux disease without esophagitis; J45.909 Unspecified asthma, uncomplicated; Z99.2 Dependence on renal dialysis; Z79.4 Long term (current) use of insulin; Z79.899 Other long term (current) drug therapy
CPT/HCPCS: 36415; 71045; 76705; 80048; 80076; 81001; 82009; 82948; 83036; 83605; 83690; 83735; 83880; 84100; 84436; 84439; 84443; 84479; 84484; 85025; 87040; 87081; 87086; 90935; 93005; 96360; 99285; J0360; J1815; J2405; J3475; J3490; J7060; Q0092

== ENCOUNTER 2024-01-25 06:54 | Inpatient (IN) | payer OTHER ==
[~2024-01-25] VITALS: Ht 167.6 cm; Wt 55.3 kg
[~2024-01-25 06:54] MED LIST changes: -ACET-10509 PO; -CHOL25TA2 GT; -HYDR-3233 PO; -INSU100I15 SQ; -LEVO0.0711 PO; -SENN-72 PO; -VITA1TAB44 PO
[2024-01-25 06:55] VITALS: BP 187/76; PULSE 103; RESP 20; TEMP 101.7; O2SAT 97
[2024-01-25] MEDS: ACETAMINOPHEN 100 ML IV ONE (07:53)
[2024-01-25 08:00] VITALS: O2SAT 97
[2024-01-25] MEDS ORDERED: cefTRIAXone 1,000 MG VIAL ONE (08:46)
[2024-01-25 08:55] LABS: HEMATOCRIT 32.1 % (36-48); HEMOGLOBIN 10.6 g/dL (12.0-16.0); MEAN CORPUSCULAR HEMOGLOBIN 32 pg (27-31); MEAN CORPUSCULAR HGB CONC 33 g/dL (33-37); MEAN CORPUSCULAR VOLUME 95.8 fL (80-94); PLATELET COUNT (AUTO) 282 K/uL (140-450); RED BLOOD CELL COUNT(AUTO) 3.35 MIL/uL (4.20-5.40); RED CELL DISTRIBUTION WIDTH 14.7 % (11.6-13.7); WHITE BLOOD COUNT (AUTO) 11.9 K/uL (4.8-10.8)
[2024-01-25 09:14] LABS: ALANINE AMINOTRANSFERASE 16 U/L (12-78); ALBUMIN 2.5 g/dL (3.4-5.0); ALKALINE PHOSPHATASE 96 U/L (50-136); ANION GAP 13.4 (8-16); ASPARTATE AMINOTRANSFERASE 17 U/L (15-37); CALCIUM 8.9 mg/dL (8.5-10.1); CARBON DIOXIDE 26.8 mmol/L (21-32); CHLORIDE 98 mmol/L (98-107); GLUCOSE 316 mg/dL (74-106); LIPASE 40 U/L (16-77); POTASSIUM 4.2 mmol/L (3.5-5.1); SODIUM SERUM 134 mmol/L (136-145); TOTAL BILIRUBIN 0.5 mg/dL (0.0-1.0); TOTAL PROTEIN, SERUM 7.1 g/dL (6.4-8.2); UREA NITROGEN, BLOOD 56 mg/dL (7-18)
[2024-01-25 09:15] LABS: EOSINOPHILS % (MANUAL) 3 % (0-4); LYMPHOCYTES % (MANUAL) 3 % (20-46); MONOCYTES % (MANUAL) 4 % (5-12); PLATELET ESTIMATE ADEQUATE
[2024-01-25 09:17] LABS: LACTIC ACID 1.5 mmol/L (0.4-2.0)
[2024-01-25 09:18] LABS: CREATININE 4.5 mg/dL (0.6-1.3)
[2024-01-25 09:34] LABS: FLU A ANTIGEN NEGATIVE (NEGATIVE); FLU B ANTIGEN NEGATIVE (NEGATIVE)
[2024-01-25 11:05] LABS: APPEARANCE,URINE CLOUDY (CLEAR); COLOR,URINE YELLOW (YELLOW); PH,URINE 7.5 (5.0-9.0); PROTEIN,URINE 2+ (NEGATIVE)
[2024-01-25 11:06] LABS: BILIRUBIN,URINE NEGATIVE (NEGATIVE); BLOOD, URINE 3+ (NEGATIVE); LEUKOCYTE ESTERASE ,URINE 2+ (NEGATIVE); NITRITE, URINE NEGATIVE (NEGATIVE); UGLUCOSE 3+ (NEGATIVE); UROBILINOGEN,URINE 0.2 EU/dL (0.2 - 1)
[2024-01-25 11:08] LABS: RBC,URINE 11-20 (MOD) /HPF (0-5)
[2024-01-25 11:09] LABS: BACTERIA,URINE 2+ /HPF (None Seen); MUCUS,URINE None Seen /LPF (None Seen); SQUAMOUS EPITHELIAL CELL,UR 4-10 (MOD) /LPF (0-3 (FEW)); WBC,URINE 16-25 (MOD) /HPF (0-5)
[2024-01-25] MEDS ORDERED: ACETAMINOPHEN 325 MG TAB PO PRN (12:25)
[2024-01-25] MEDS ORDERED: ONDANSETRON 4 MG/2 ML VIAL IVP PRN (12:25)
[2024-01-25] MEDS ORDERED: MAG SULF 2000 MG/WATER PREMIX 50 ML IV PRN (12:25)
[2024-01-25] MEDS ORDERED: KCL 20 MEQ IN 100 mL PREMIX 200 ML IV PRN (12:25)
[2024-01-25] MEDS ORDERED: HYDROcodone/APAP 5/325 MG 1 TAB TAB PO PRN (12:25)
[2024-01-25] MEDS ORDERED: DEXTROSE 50% 50 ML SYR IVP PRN (12:35)
[2024-01-25] MEDS: NACL 0.9% 1,000 ML IV SCH (13:33)
[2024-01-25] MEDS: hydrALAZINE 10 MG TAB PO SCH (13:44)
[2024-01-25] MEDS ORDERED: LEVO0.0712 PO (15:22)
[2024-01-25] MEDS ORDERED: AMLO-3 PO (15:22)
[2024-01-25] MEDS ORDERED: INSU100I15 SUBQ (15:22)
[2024-01-25] MEDS ORDERED: HYDR-3233 PO (15:22)
[2024-01-25] MEDS ORDERED: SEVE800T6 (15:22)
[2024-01-25] MEDS ORDERED: LORA-476 (15:22)
[2024-01-25] MEDS ORDERED: [UNRECOGNIZED DRUG - CODE] (15:22)
[2024-01-25] MEDS ORDERED: GABA-636 PO (15:22)
[2024-01-25] MEDS ORDERED: GLUC1PDS1 IM (15:22)
[2024-01-25] MEDS ORDERED: PARO20TA13 PO (15:22)
[2024-01-25] MEDS ORDERED: ATOR40TA40 PO (15:22)
[2024-01-25] MEDS ORDERED: INSU100S22 SUBQ (15:22)
[2024-01-25] MEDS: BLOOD GLUCOSE MONITORING 1 DEV DEV FS SCH (16:44)
[2024-01-25] MEDS: INSULIN LISPRO SLIDING SCALE 100 UNITS/ML VIAL SUBQ PRN (16:46)
[2024-01-25] MEDS: SEVELAMER CARBONATE 800 MG TAB PO SCH (17:45)
[2024-01-25 20:25] VITALS: O2SAT 98
[2024-01-25 21:30] VITALS: BP 150/60; PULSE 76; PULSE 77; RESP 20; TEMP 96.5; O2SAT 100
[2024-01-25] MEDS: GABAPENTIN 100 MG CAP PO SCH (21:49)
[2024-01-25] MEDS: INSULIN LANTUS 100 UNITS/ML 10 ML VIAL SUBQ SCH (21:57)
[2024-01-25 22:00] VITALS: PULSE 76; O2SAT 100
[2024-01-25] MEDS: CRUSHER, PILL MC ONE (22:17)
[2024-01-26] VITALS (7 sets, daily range): BP systolic 136–213; BP diastolic 51–170; PULSE 61–96; RESP 18–20; TEMP 36.7; O2SAT 95–100
[2024-01-26] MEDS: LEVOTHYROXINE 0.05 MG TAB PO SCH (06:15)
[2024-01-26 07:25] LABS: BASOPHILS # (AUTO) 0.1 K/uL (0.00-0.22); BASOPHILS % (AUTO) 0.9 % (0.0-2.0); EOSINOPHILS # (AUTO) 0.4 K/uL (0-0.4); EOSINOPHILS % (AUTO) 4.5 % (0.0-4.0); HEMATOCRIT 33.3 % (36-48); HEMOGLOBIN 10.9 g/dL (12.0-16.0); LYMPHOCYTES # (AUTO) 0.8 K/uL (2.5-16.5); MEAN CORPUSCULAR HEMOGLOBIN 32 pg (27-31); MEAN CORPUSCULAR HGB CONC 33 g/dL (33-37); MEAN CORPUSCULAR VOLUME 97.7 fL (80-94); MONOCYTES # (AUTO) 0.5 K/uL (0.8-1.0); MONOCYTES % (AUTO) 6.4 % (1.7-9.3); NEUTROPHILS # (AUTO) 6.2 K/uL (1.8-7.7); NEUTROPHILS % (AUTO) 78.2 % (42.2-75.2); PLATELET COUNT (AUTO) 282 K/uL (140-450); RED BLOOD CELL COUNT(AUTO) 3.41 MIL/uL (4.20-5.40); WHITE BLOOD COUNT (AUTO) 7.9 K/uL (4.8-10.8)
[2024-01-26 07:42] LABS: ALANINE AMINOTRANSFERASE 15 U/L (12-78); ALBUMIN 2.4 g/dL (3.4-5.0); ALKALINE PHOSPHATASE 91 U/L (50-136); ANION GAP 10.5 (8-16); ASPARTATE AMINOTRANSFERASE 15 U/L (15-37); CALCIUM 9.1 mg/dL (8.5-10.1); CARBON DIOXIDE 29.8 mmol/L (21-32); CHLORIDE 103 mmol/L (98-107); GLUCOSE 104 mg/dL (74-106); POTASSIUM 4.3 mmol/L (3.5-5.1); SODIUM SERUM 139 mmol/L (136-145); TOTAL BILIRUBIN 0.4 mg/dL (0.0-1.0); TOTAL PROTEIN, SERUM 7.2 g/dL (6.4-8.2); UREA NITROGEN, BLOOD 54 mg/dL (7-18)
[2024-01-26 07:49] LABS: CREATININE 4.3 mg/dL (0.6-1.3)
[2024-01-26 07:52] LABS: PHOSPHORUS 3.8 mg/dL (2.5-4.9)
[2024-01-26] MEDS: amLODIPine 5 MG TAB PO SCH (09:01)
[2024-01-26] MEDS: ATORVASTATIN 20 MG TAB PO SCH (09:03)
[2024-01-26] MEDS: FOLIC ACID 1 MG TAB PO SCH (09:03)
[2024-01-26] MEDS: PANTOPRAZOLE 40 MG TABEC PO SCH (09:03)
[2024-01-26] MEDS: VIT-B COMP/VIT-C/FOLIC ACID 1 TAB PO SCH (09:08)
[2024-01-26] MEDS: hydrALAZINE 20 MG/ML VIAL IVP PRN (09:08)
[2024-01-27] VITALS (7 sets, daily range): BP systolic 116–157; BP diastolic 36–86; PULSE 61–102; RESP 16–20; TEMP 96.5–98.1; O2SAT 94–100
[2024-01-27] MEDS: LEVOTHYROXINE 0.075 MG TAB PO SCH (06:21)
[2024-01-27 06:51] LABS: BASOPHILS % (AUTO) 0.4 % (0.0-2.0); EOSINOPHILS # (AUTO) 0.3 K/uL (0-0.4); EOSINOPHILS % (AUTO) 4.3 % (0.0-4.0); HEMOGLOBIN 10.6 g/dL (12.0-16.0); LYMPHOCYTES # (AUTO) 1.3 K/uL (2.5-16.5); LYMPHOCYTES % (AUTO) 17.5 % (20.5-51.1); MEAN CORPUSCULAR HEMOGLOBIN 32 pg (27-31); MEAN CORPUSCULAR HGB CONC 33 g/dL (33-37); MEAN CORPUSCULAR VOLUME 97.6 fL (80-94); MONOCYTES # (AUTO) 0.6 K/uL (0.8-1.0); MONOCYTES % (AUTO) 8.4 % (1.7-9.3); NEUTROPHILS % (AUTO) 69.4 % (42.2-75.2); PLATELET COUNT (AUTO) 263 K/uL (140-450); RED BLOOD CELL COUNT(AUTO) 3.28 MIL/uL (4.20-5.40); RED CELL DISTRIBUTION WIDTH 15.1 % (11.6-13.7); WHITE BLOOD COUNT (AUTO) 7.2 K/uL (4.8-10.8)
[2024-01-27 07:12] LABS: ALANINE AMINOTRANSFERASE 10 U/L (12-78); ALBUMIN 2.3 g/dL (3.4-5.0); ALKALINE PHOSPHATASE 88 U/L (50-136); ANION GAP 13.7 (8-16); ASPARTATE AMINOTRANSFERASE 13 U/L (15-37); CALCIUM 8.9 mg/dL (8.5-10.1); CARBON DIOXIDE 24.8 mmol/L (21-32); CHLORIDE 98 mmol/L (98-107); GLUCOSE 233 mg/dL (74-106); POTASSIUM 4.5 mmol/L (3.5-5.1); SODIUM SERUM 132 mmol/L (136-145); TOTAL BILIRUBIN 0.4 mg/dL (0.0-1.0); TOTAL PROTEIN, SERUM 6.8 g/dL (6.4-8.2)
[2024-01-27 07:31] LABS: PHOSPHORUS 3.6 mg/dL (2.5-4.9)
[2024-01-27 07:43] LABS: CREATININE 4.2 mg/dL (0.6-1.3)
[2024-01-27 07:44] LABS: UREA NITROGEN, BLOOD 51 mg/dL (7-18)
[2024-01-27] MEDS: LORazepam 2 MG/ML VIAL IM/IVP SCH (10:00)
[2024-01-27] MEDS: LORazepam 2 MG/ML VIAL ONE (10:05)
[2024-01-27] MEDS ORDERED: FOAM DRESSING TP PRN (12:10)
[2024-01-27] MEDS ORDERED: Z-GUARD PASTE TP PRN (12:10)
[2024-01-27] MEDS ORDERED: ALGINATE DRESSING MC PRN (12:10)
[2024-01-27] MEDS: Z-GUARD PASTE TP SCH (13:51)
[2024-01-27] MEDS: ALGINATE DRESSING MC SCH (13:51)
[2024-01-27] MEDS: FOAM DRESSING TP SCH (13:51)
[2024-01-27] MEDS: ZOLPIDEM 5 MG TAB PO PRN (21:25)
[2024-01-27] MEDS: CIPROFLOXACIN 250 MG TAB PO SCH (21:26)
[2024-01-28] VITALS: BP 128/86; PULSE 76; RESP 18; TEMP 98.4; O2SAT 98
[2024-01-28 04:00] VITALS: BP 155/56; PULSE 82; RESP 18; TEMP 97.8; O2SAT 99
[2024-01-28 08:00] VITALS: BP 136/51; PULSE 76; RESP 18; TEMP 96.8; O2SAT 100
[2024-01-28 08:07] LABS: BASOPHILS % (AUTO) 0.8 % (0.0-2.0); EOSINOPHILS # (AUTO) 0.2 K/uL (0-0.4); EOSINOPHILS % (AUTO) 3.6 % (0.0-4.0); HEMOGLOBIN 10.6 g/dL (12.0-16.0); LYMPHOCYTES % (AUTO) 17.7 % (20.5-51.1); MEAN CORPUSCULAR HEMOGLOBIN 32 pg (27-31); MEAN CORPUSCULAR HGB CONC 33 g/dL (33-37); MEAN CORPUSCULAR VOLUME 97.1 fL (80-94); MONOCYTES # (AUTO) 0.4 K/uL (0.8-1.0); MONOCYTES % (AUTO) 7.5 % (1.7-9.3); NEUTROPHILS % (AUTO) 70.4 % (42.2-75.2); PLATELET COUNT (AUTO) 218 K/uL (140-450); RED BLOOD CELL COUNT(AUTO) 3.29 MIL/uL (4.20-5.40); RED CELL DISTRIBUTION WIDTH 15.1 % (11.6-13.7); WHITE BLOOD COUNT (AUTO) 5.7 K/uL (4.8-10.8)
[2024-01-28 08:43] LABS: PHOSPHORUS 3.3 mg/dL (2.5-4.9)
[2024-01-28 08:47] LABS: ALANINE AMINOTRANSFERASE 13 U/L (12-78); ALBUMIN 2.3 g/dL (3.4-5.0); ALKALINE PHOSPHATASE 88 U/L (50-136); ANION GAP 9.4 (8-16); ASPARTATE AMINOTRANSFERASE 14 U/L (15-37); CALCIUM 8.9 mg/dL (8.5-10.1); CARBON DIOXIDE 29.1 mmol/L (21-32); CHLORIDE 100 mmol/L (98-107); GLUCOSE 252 mg/dL (74-106); POTASSIUM 4.5 mmol/L (3.5-5.1); SODIUM SERUM 134 mmol/L (136-145); TOTAL BILIRUBIN 0.4 mg/dL (0.0-1.0); UREA NITROGEN, BLOOD 33 mg/dL (7-18)
[2024-01-28 08:51] LABS: CREATININE 4.1 mg/dL (0.6-1.3)
[2024-01-28 10:00] VITALS: TEMP 96.8
[2024-01-29] MEDS ORDERED: GLUC1PDS1 IM (11:24)
[2024-01-29] MEDS ORDERED: INSU100I15 SQ (11:24)
[2024-01-29] MEDS ORDERED: ATI.5 PO (11:24)
[2024-01-29] MEDS ORDERED: HYDR-3233 PO (11:24)
[2024-01-29] MEDS ORDERED: [UNRECOGNIZED DRUG - CODE] IV (11:24)
[2024-01-29] MEDS ORDERED: ASCO-549 PO (11:24)
[2024-01-29] MEDS ORDERED: INSU100S22 SUBQ (11:24)
[2024-01-29] MEDS ORDERED: SENN-72 PO (11:24)
== END 2024-01-28 16:45 | DRG 871 ==
LOC: MED 06:54 → MTU 12:23
PROVIDERS: ADMIT Student in an Organized Health Care Education/Training Program; ATTEND Student in an Organized Health Care Education/Training Program
PROC: 5A1D70Z Performance of Urinary Filtration, Intermittent, Less than 6 Hours Per Day (ICD-10-PCS; principal; 2024-01-27)
DX: A41.9 Sepsis, unspecified organism (principal); E43 Unspecified severe protein-calorie malnutrition; G93.41 Metabolic encephalopathy; N18.6 End stage renal disease; N39.0 Urinary tract infection, site not specified; I12.0 Hypertensive chronic kidney disease with stage 5 chronic kidney disease or end stage renal disease; F03.911 Unspecified dementia, unspecified severity, with agitation; Z68.1 Body mass index [BMI] 19.9 or less, adult; Z20.822 Contact with and (suspected) exposure to COVID-19; E03.9 Hypothyroidism, unspecified; E11.22 Type 2 diabetes mellitus with diabetic chronic kidney disease; J45.909 Unspecified asthma, uncomplicated; E78.5 Hyperlipidemia, unspecified; K21.9 Gastro-esophageal reflux disease without esophagitis; Z99.2 Dependence on renal dialysis; Z91.158 Patient's noncompliance with renal dialysis for other reason; Z79.899 Other long term (current) drug therapy; Z79.4 Long term (current) use of insulin; Z88.8 Allergy status to other drugs, medicaments and biological substances; B96.5 Pseudomonas (aeruginosa) (mallei) (pseudomallei) as the cause of diseases classified elsewhere
CPT/HCPCS: 36415; 71045; 80053; 81001; 82948; 83605; 83690; 83735; 84100; 85025; 87040; 87081; 87086; 87186; J0360; J0696; J1815; J2060; J7060; Q0092

== ENCOUNTER 2024-01-29 09:59 | Inpatient (IN) | payer OTHER ==
[~2024-01-29] VITALS: Ht 162.6 cm; Wt 53.1 kg
[~2024-01-29 09:59] MED LIST changes: +AMLO-3 PO; -AMLO5TAB PO; -AMOX1TAB8 PO; -ATOR40TA PO; +ATOR40TA40 PO; +GABA-636 PO; -GABA100C PO; +GLUC1PDS1 IM; -HUMSLIDE SUBQ; +INSU100I15 SUBQ; +LEVO0.0712 PO; +PARO20TA13 PO; -PAX20 PO; -SYN.05 PO; +[UNRECOGNIZED DRUG - CODE]
[2024-01-29 10:11] VITALS: BP 114/76; PULSE 88; RESP 18; TEMP 98.4; O2SAT 99
[2024-01-29 10:44] LABS: BASOPHILS # (AUTO) 0.1 K/uL (0.00-0.22); BASOPHILS % (AUTO) 0.4 % (0.0-2.0); EOSINOPHILS # (AUTO) 0.1 K/uL (0-0.4); EOSINOPHILS % (AUTO) 0.7 % (0.0-4.0); HEMATOCRIT 33.3 % (36-48); HEMOGLOBIN 10.6 g/dL (12.0-16.0); LYMPHOCYTES # (AUTO) 0.7 K/uL (2.5-16.5); MEAN CORPUSCULAR HEMOGLOBIN 31 pg (27-31); MEAN CORPUSCULAR HGB CONC 32 g/dL (33-37); MEAN CORPUSCULAR VOLUME 97.6 fL (80-94); MONOCYTES # (AUTO) 0.4 K/uL (0.8-1.0); MONOCYTES % (AUTO) 2.7 % (1.7-9.3); NEUTROPHILS # (AUTO) 12.2 K/uL (1.8-7.7); NEUTROPHILS % (AUTO) 91.2 % (42.2-75.2); PLATELET COUNT (AUTO) 235 K/uL (140-450); RED BLOOD CELL COUNT(AUTO) 3.42 MIL/uL (4.20-5.40); RED CELL DISTRIBUTION WIDTH 15.4 % (11.6-13.7); WHITE BLOOD COUNT (AUTO) 13.4 K/uL (4.8-10.8)
[2024-01-29 11:01] LABS: CALCIUM 9.2 mg/dL (8.5-10.1); CARBON DIOXIDE 30.4 mmol/L (21-32); CHLORIDE 101 mmol/L (98-107); GLUCOSE 123 mg/dL (74-106); POTASSIUM 4.4 mmol/L (3.5-5.1); SODIUM SERUM 136 mmol/L (136-145); UREA NITROGEN, BLOOD 40 mg/dL (7-18)
[2024-01-29 11:07] LABS: CREATININE 4.3 mg/dL (0.6-1.3)
[2024-01-29 11:10] LABS: LACTIC ACID 1.5 mmol/L (0.4-2.0)
[2024-01-29 11:11] LABS: FLU A ANTIGEN negative (NEGATIVE); FLU B ANTIGEN NEGATIVE (NEGATIVE)
[2024-01-29] MEDS ORDERED: SENN-72 PO (11:24)
[2024-01-29] MEDS ORDERED: AMLO5TAB PO (11:24)
[2024-01-29] MEDS ORDERED: INSU100S22 SUBQ (11:24)
[2024-01-29] MEDS ORDERED: GLUC1PDS1 IM (11:24)
[2024-01-29] MEDS ORDERED: ATI.5 PO (11:24)
[2024-01-29] MEDS ORDERED: GABA100C PO (11:24)
[2024-01-29] MEDS ORDERED: ASCO-549 PO (11:24)
[2024-01-29] MEDS ORDERED: HYDR-3233 PO (11:24)
[2024-01-29] MEDS ORDERED: INSU100I15 SQ (11:24)
[2024-01-29] MEDS ORDERED: [UNRECOGNIZED DRUG - CODE] IV (11:24)
[2024-01-29] MEDS ORDERED: cefTRIAXone 1,000 MG VIAL ONE (11:33)
[2024-01-29] MEDS ORDERED: ACETAMINOPHEN 325 MG TAB PO PRN (11:50)
[2024-01-29] MEDS ORDERED: ONDANSETRON 4 MG/2 ML VIAL IVP PRN (11:50)
[2024-01-29 11:58] LABS: APPEARANCE,URINE CLOUDY (CLEAR); COLOR,URINE YELLOW (YELLOW); PH,URINE 7.5 (5.0-9.0); PROTEIN,URINE TRACE (NEGATIVE)
[2024-01-29 11:59] LABS: BILIRUBIN,URINE NEGATIVE (NEGATIVE); BLOOD, URINE 2+ (NEGATIVE); UGLUCOSE NEGATIVE (NEGATIVE)
[2024-01-29 12:00] LABS: LEUKOCYTE ESTERASE ,URINE 2+ (NEGATIVE); UROBILINOGEN,URINE 0.2 EU/dL (0.2 - 1)
[2024-01-29] MEDS: SEVELAMER CARBONATE 800 MG TAB PO SCH (12:00)
[2024-01-29 12:02] LABS: NITRITE, URINE POSITIVE (NEGATIVE); SQUAMOUS EPITHELIAL CELL,UR 0-3 (FEW) /LPF (0-3 (FEW))
[2024-01-29 12:04] LABS: RBC,URINE 11-20 (MOD) /HPF (0-5)
[2024-01-29 12:05] LABS: BACTERIA,URINE 2+ /HPF (None Seen)
[2024-01-29] MEDS: cefTRIAXone 1,000 MG in DEXT 5% MINI-BAG PLUS 50 ML IV ONE (12:20)
[2024-01-29] MEDS: MORPHINE SULFATE 4 MG/ML SYR IVP ONE (12:25)
[2024-01-29] MEDS: NACL 0.9% 1,000 ML IV SCH (13:50)
[2024-01-29 16:00] VITALS: BP 108/36; PULSE 84; PULSE 88; RESP 16; TEMP 96.9; O2SAT 100
[2024-01-29] MEDS: LORazepam 0.5 MG TAB PO PRN (16:55)
[2024-01-29] MEDS: BLOOD GLUCOSE MONITORING 1 DEV DEV FS SCH (17:15)
[2024-01-29] MEDS: DEXTROSE 50% 50 ML SYR IVP PRN (17:19)
[2024-01-29 19:38] VITALS: PULSE 86; RESP 18; O2SAT 97
[2024-01-29 20:00] VITALS: BP 113/33; PULSE 82; PULSE 86; RESP 18; TEMP 97.5; O2SAT 96
[2024-01-29 20:36] VITALS: PULSE 89; RESP 18; O2SAT 98
[2024-01-29] MEDS: GABAPENTIN 100 MG CAP PO SCH (20:45)
[2024-01-29] MEDS: PIPERACILLIN/TAZOBACTAM 2.25 GM in DEXTROSE 5% 50 ML IV SCH (20:45)
[2024-01-29 23:56] VITALS: PULSE 78
[2024-01-30] VITALS: BP 116/38; PULSE 79; RESP 19; TEMP 97; O2SAT 100
[2024-01-30 04:00] VITALS: BP 102/69; PULSE 71; PULSE 73; RESP 19; TEMP 96.5; O2SAT 100
[2024-01-30] MEDS: LEVOTHYROXINE 0.075 MG TAB PO SCH (06:09)
[2024-01-30 08:00] VITALS: BP 129/54; PULSE 69; PULSE 73; RESP 20; TEMP 97.3; O2SAT 100
[2024-01-30 08:26] LABS: BASOPHILS % (AUTO) 0.7 % (0.0-2.0); EOSINOPHILS # (AUTO) 0.2 K/uL (0-0.4); EOSINOPHILS % (AUTO) 3.4 % (0.0-4.0); HEMOGLOBIN 8.9 g/dL (12.0-16.0); LYMPHOCYTES # (AUTO) 1.3 K/uL (2.5-16.5); LYMPHOCYTES % (AUTO) 17.7 % (20.5-51.1); MEAN CORPUSCULAR HEMOGLOBIN 32 pg (27-31); MEAN CORPUSCULAR HGB CONC 33 g/dL (33-37); MEAN CORPUSCULAR VOLUME 97.4 fL (80-94); MONOCYTES # (AUTO) 0.5 K/uL (0.8-1.0); MONOCYTES % (AUTO) 7.3 % (1.7-9.3); NEUTROPHILS % (AUTO) 70.9 % (42.2-75.2); PLATELET COUNT (AUTO) 197 K/uL (140-450); RED BLOOD CELL COUNT(AUTO) 2.77 MIL/uL (4.20-5.40); RED CELL DISTRIBUTION WIDTH 15.2 % (11.6-13.7); WHITE BLOOD COUNT (AUTO) 7.1 K/uL (4.8-10.8)
[2024-01-30 08:40] LABS: ANION GAP 11.9 (8-16); CALCIUM 8.3 mg/dL (8.5-10.1); CARBON DIOXIDE 26.3 mmol/L (21-32); CHLORIDE 105 mmol/L (98-107); GLUCOSE 82 mg/dL (74-106); POTASSIUM 4.2 mmol/L (3.5-5.1); SODIUM SERUM 139 mmol/L (136-145); UREA NITROGEN, BLOOD 39 mg/dL (7-18)
[2024-01-30 08:42] LABS: CREATININE 4.3 mg/dL (0.6-1.3)
[2024-01-30] MEDS ORDERED: NON-FORMULARY ITEM (Atorvastatin Calcium 1 TAB) PO SCH (09:00)
[2024-01-30] MEDS: ATORVASTATIN 20 MG TAB PO SCH (09:27)
[2024-01-30] MEDS: PANTOPRAZOLE 40 MG TABEC PO SCH (09:27)
[2024-01-30] MEDS: amLODIPine 5 MG TAB PO SCH (09:28)
[2024-01-30] MEDS: FOLIC ACID 1 MG TAB PO SCH (09:29)
[2024-01-30] MEDS: hydrALAZINE 10 MG TAB PO SCH (09:30)
[2024-01-30] MEDS: PARoxetine 20 MG TAB PO SCH (09:31)
[2024-01-30 16:00] VITALS: BP 147/56; PULSE 76; RESP 20; TEMP 97.7; O2SAT 98
[2024-01-30] MEDS: INSULIN LISPRO SLIDING SCALE 100 UNITS/ML VIAL SUBQ PRN (16:44)
[2024-01-30 20:00] VITALS: BP_SYST 113; BP_SYST 127; BP_DIAS 49; BP_DIAS 56; PULSE 83; RESP 19; RESP 20; TEMP 97.1; TEMP 97.2; O2SAT 98
[2024-01-31 08:00] VITALS: BP_SYST 113; BP_SYST 146; BP_DIAS 56; BP_DIAS 58; PULSE 70; RESP 18; TEMP 96.9; O2SAT 98
[2024-01-31 08:17] VITALS: RESP 20; O2SAT 98
[2024-01-31 08:18] VITALS: TEMP 98.8
[2024-01-31 08:20] VITALS: PULSE 88; RESP 19
[2024-01-31 12:00] VITALS: BP_SYST 113; BP_SYST 136; BP_DIAS 42; BP_DIAS 56; PULSE 84; RESP 18; TEMP 97.2; O2SAT 98
[2024-02-01] MEDS ORDERED: FOAM DRESSING TP SCH (09:00)
== END 2024-01-31 15:39 | disposition home or self-care (01) | DRG 640 ==
LOC: MED 09:59 → MTU 11:50
PROVIDERS: ADMIT Student in an Organized Health Care Education/Training Program; ATTEND Student in an Organized Health Care Education/Training Program
PROC: 5A1D70Z Performance of Urinary Filtration, Intermittent, Less than 6 Hours Per Day (ICD-10-PCS; principal; 2024-01-30)
DX: E87.70 Fluid overload, unspecified (principal); J96.00 Acute respiratory failure, unspecified whether with hypoxia or hypercapnia; N18.6 End stage renal disease; I12.0 Hypertensive chronic kidney disease with stage 5 chronic kidney disease or end stage renal disease; R65.10 Systemic inflammatory response syndrome (SIRS) of non-infectious origin without acute organ dysfunction; K21.9 Gastro-esophageal reflux disease without esophagitis; E11.22 Type 2 diabetes mellitus with diabetic chronic kidney disease; E03.9 Hypothyroidism, unspecified; D64.9 Anemia, unspecified; F03.90 Unspecified dementia, unspecified severity, without behavioral disturbance, psychotic disturbance, mood disturbance, and anxiety; Z99.2 Dependence on renal dialysis; Z88.8 Allergy status to other drugs, medicaments and biological substances; Z79.899 Other long term (current) drug therapy
CPT/HCPCS: 36415; 71045; 80048; 81001; 82948; 83605; 83880; 84484; 85025; 87040; 87081; 87086; 90935; 93005; 96365; 99285; J0696; J1815; J2543; J7060